=== PATIENT | female | born 1995 | race Caucasian/White ===

== ENCOUNTER 2018-04-26 12:14 | Emergency (ER) | payer MEDICAID, SELFPAY ==
[2018-04-26 12:15] VITALS: BP 119/76; PULSE 78; RESP 18; TEMP 36.1; O2SAT 99; BMI 25.6
--- NOTE | 2018-04-26 13:46 | EKG12_ITS ---
Test Reason : DIZZY Blood Pressure : / mmHG Vent. Rate : 077 BPM Atrial Rate : 077 BPM P-R Int : 132 ms QRS Dur : 086 ms QT Int : 398 ms P-R-T Axes : 072 078 050 degrees QTc Int : 450 ms Normal sinus rhythm with sinus arrhythmia Normal ECG Confirmed by MARITZA SHIPLEY, AURELIA ([id number]), online content editor GARRICK GARCIA ([id number]) on 04/30/2018 10:31:19 AM Referred By: POAL Confirmed By:AURELIA SALAS MD
[2018-04-26 14:23] LABS: Absolute Lymphocyte Count 1.38 X10^3/ul (0.83-4.51); Absolute Neutrophil Count 3.3 X10^3/uL (2.0-7.7); Basophil# 0.01 X10^3/uL; Basophil% 0.2 % (0-1); Eosinophil# 0.07 X10^3/uL; Eosinophils% 1.4 % (0-5); Hematocrit 42.4 % (37-47); Hemoglobin 13.7 g/dl (12.0-15.0); Lymphocyte # 1.38 X10^3/ul (4.0); Lymphocyte % 26.6 % (19-41); Mean Corp Hgb Conc 32.3 g/gl (32-36); Mean Corpuscular Hgb 28.8 pg (27.0-32.0); Mean Corpuscular Volume 89.3 fL (81-99); Mean Platelet Vol. 11.7 fl (6.2-12.0); Monocyte# 0.39 X10^3/uL; Monocyte% 7.5 % (0-10); Neutrophil # 3.32 X10^3/uL (2.7-7.7); Neutrophil % 64.1 % (47-70); Platelet Count 212 K/mm3 (150-450); RBC Distribution Width CV 12.3 % (11.6-14.6); RBC Distribution Width SD 39.5 fl (35.1-43.9); Red Blood Count 4.75 M/mm3 (4.2-5.4); White Blood Count 5.2 K/mm3 (4.4-11.0)
[2018-04-26 14:24] LABS: POSITIVE COUNT NO; POSITIVE DIFFERENTIAL NO; POSITIVE MORPHOLOGY NO
[2018-04-26 14:31] LABS: Anion Gap 8 (5-15); BUN 7 mg/dL (7-18); BUN/Creat Ratio 9.5 RATIO (10-20); Calcium,Total 8.9 mg/dL (8.5-10.1); Chloride 105 mmol/L (98-107); Creatinine, Serum 0.74 mg/dL (0.55-1.02); EST Glomerular Filtration Rate 102 mL/min (>60); Est Glom Filt Rate - Afr Amer 124 mL/min (>60); Estimated Creatinine Clearance 92.72 ml/min; Glucose 86 mg/dL (74-106); Potassium 3.6 mmol/L (3.5-5.1); Sodium Level 139 mmol/L (136-145)
[2018-04-26 14:53] LABS: D-Dimer Quantitative (DVT/PE) 0.27 FEU/ug/m (0.27-0.49)
--- NOTE | 2018-04-26 15:05 | RAD_ITS ---
STUDY: X-RAY CHEST REASON FOR EXAM: Female, 22 years old. Dyspnea. Atypical chest pain. TECHNIQUE: PA and lateral views of the chest. COMPARISON: Comparison is made with prior study dated July 05, 2013. FINDINGS: EKG electrodes are seen. Focal infiltrate is seen in the left lower lobe. There is no demonstrated pleural abnormality. Normal size heart. Normal mediastinum and isaac. Normal visualized pulmonary arteries. Normal visualized aortic arch and descending thoracic aorta. Normal visualized thoracic spine. Normal visualized ribs, clavicles, and shoulders. There is no demonstrated abnormality of the visualized soft tissue structures of the upper abdomen. RAD/Chest PA and Lateral IMPRESSION: Focal left lower lobe infiltrate. This is in the lateral segment. Electronically Signed: lAy Ramsay MD at 15:32 EST , Service support ,
--- NOTE | 2018-04-26 15:53 | ED.VISSUMM ---
- ER Visit Summary Date of Service: 04/26/18 Chief Complaint: Shortness of breath, dizziness, tingling in chest, paresthesia History of Present Illness: The patient is a 22 F who has no symptoms of menopause presents with a one-week history of trouble breathing, shortness of breath, dizziness, seeing a chest and tingling. She denies depression anxiety. She denies headache. She denies visual, ocular auditory symptoms or she denies trouble with speech or swallowing. She states that the chest discomfort is mid tingling. She denies history of PE or DVT. She has no risk factors. She denies leg pain or leg swelling. She denies nausea or vomiting. He denies urologic symptoms. She has not had a menstrual cycle in 6 years. She does have an IUD in place. There is no history of trauma. Please read written note. Physical Examination: Vital signs noted. Initial document was unremarkable. When I examined the patient she had a heart rate of 100. She was breathing much more rapidly than 18 times a minute. Head is atraumatic normocephalic. Pupils are equal round reactive. Extraocular muscles are intact. TMs are pearly white with landmarks noted. Nares patent with no drainage. Posterior pharynx without erythema or exudate. Uvula is midline. There is no dysphonia or dysphasia. Trachea is midline. There is no stridor with auscultation of the neck. Patient does have bilateral [place] signs noted. Heart is regular without murmur, gallop or rub. S1 and S2 are normal. Lungs are clear to auscultation with good movement of air bilaterally. Abdomen soft nontender. There is no asymmetry, swelling, discoloration, leg vein distention, palpable cords or tenderness along the distribution of the deep venous system. Neuro exam is nonfocal. Test Results: Workup was unremarkable. Chest x-ray was normal. D-dimer is normal. EKG revealed a sinus rhythm rate of 78 that is normal. Emergency Department Course and Treatment: Because patient remains a shortness of breath heart rate is greater than 90 will obtain a d-dimer to evaluate for PE. Chest x-ray to evaluate for infiltrate pneumothorax etc. EKG to look for ischemic changes or evidence of preexcitation syndrome. Treatment Plan: Follow-up with PCP and possible counseling. Disposition: Discharged home in stable condition Impression: 1. Dyspnea 2. Hyperventilation syndrome possible anxiety This note was generated with [employer] software. It may contain incorrect words, spelling, and punctuation that were not noted in review of the chart prior to signing ED Disposition - Plan for ED Patient: Disposition: Home or Assisted Living Instructions: ED Dyspnea Shortness of Breath, ED Hyperventilation Syndrome Referrals: [facility] Doctor,Out of [Primary Care Provider] - 3-5 Days
[2018-04-26 16:29] VITALS: BP 114/84; PULSE 77; RESP 15; RESP 18; O2SAT 99
== END 2018-04-26 16:31 | disposition home or self-care (01) ==
PROVIDERS: Emergency Provider Emergency Medicine
DX: R06.00 Dyspnea, unspecified (principal); F45.8 Other somatoform disorders
CPT/HCPCS: 71046; 80048; 85025; 85379; 93005; 99284; A4216

== ENCOUNTER 2018-08-06 08:24 | Inpatient (IN) | payer MEDICAID, SELFPAY ==
[2018-08-06] VITALS (7 sets, daily range): BP systolic 95–137; BP diastolic 42–85; PULSE 73–99; RESP 16–18; TEMP 36.2–36.8; O2SAT 96–100; BMI 25.9; BMI 26.0; BMI 25.3
--- NOTE | 2018-08-06 08:38 | CT_ITS ---
STUDY: CT BRAIN WITHOUT CONTRAST REASON FOR EXAM: Female, 22 years old. Bilateral leg weakness and numbness. RADIATION DOSAGE (If Supplied By Facility): CTDIvol = ( 44.99 ) mGy, DLP = ( 779.24 ) mGycm TECHNIQUE: Transaxial CT imaging of the brain was performed without administration of intravenous contrast material. Individualized dose optimization techniques were used for this CT. COMPARISON: No relevant priors. FINDINGS: Normal soft tissue structures. Normal calvarium. Normal size ventricles and extra-axial spaces for the patient's age. Normal white matter tracts of the cerebral hemispheres. Normal basal ganglia and thalami. Normal brainstem. Normal cerebellum. There is no intracranial hemorrhage. There are no findings of an acute ischemic infarction. Normal visualized paranasal sinuses. CT/Brain/Head without Contrast IMPRESSION: Normal unenhanced CT scan of the brain. Electronically Signed: Aly Ramsay, at 10:03 EDT , Service support ,
--- NOTE | 2018-08-06 08:47 | ED.VISSUMM ---
- ER Visit Summary Date of Service: 08/06/18 Chief Complaint: Paresthesias History of Present Illness: The patient is a 22 F reports a tingling sensation to her fingertips and distal to her knees bilaterally over the past 3 days. She has not had any motor weakness. She noted tingling sensation over her abdomen and back when she was taking her sweatshirt off this morning. She reports normal temperature sensation. She is not taking any medications or supplements. She said no recent diet changes. There is reportedly a family history of MS including in her father. Physical Examination: Vital signs unremarkable. Patient sitting upright in bed no acute distress. Heart is regular rate and rhythm. Lung sounds are clear. Abdomen is soft and nontender. Neuro exam reveals good strength throughout. She is strong distal pulses throughout. She reports decreased sensation to light touch over her abdomen, fingers, and the bilateral lower legs. No skin changes are noted to this area. Test Results: CBC and chemistry studies unremarkable. test negative. Noncontrast head CT is unremarkable. Emergency Department Course and Treatment: Test results were discussed with patient and father at bedside. I initially advised close follow-up with neurology as an outpatient. I spoke with Dr. Lamb to help arrange this. He wanted to come see the patient in the emergency room prior to discharge. Dr. Krista Garg ordered MRI of the brain and C-spine. MRI of the brain reveals multiple enhancing plaques in the bilateral cerebral hemispheres and left cerebellar hemisphere consistent with multiple sclerosis. MRI of the C-spine shows an MS plaque at C3-4 without active demyelination at this time. Test results were discussed with Dr. Lamb. He would like the patient admitted and started on Solu-Medrol 1 g daily. I will speak with the hospitalist. Treatment Plan: [] Disposition: Admit Impression: 1. Paresthesias 2. New diagnosis multiple sclerosis This note was generated with [employer] software. It may contain incorrect words, spelling, and punctuation that were not noted in review of the chart prior to signing ED Disposition - Plan for ED Patient: Disposition: Home or Assisted Living Instructions: ED Paraesthesias Referrals: Steve Vega MD [STAFF PHYSICIAN] - As soon as possible
[2018-08-06] MEDS: 0.9% Normal Saline 1,000 ML 150 ML IV ×2 (08:59→23:22)
[2018-08-06 09:08] LABS: Absolute Lymphocyte Count 1.01 X10^3/ul (0.83-4.51); Absolute Neutrophil Count 2.7 X10^3/uL (2.0-7.7); Basophil# 0.01 X10^3/uL; Basophil% 0.2 % (0-1); Eosinophil# 0.14 X10^3/uL; Eosinophils% 3.1 % (0-5); Hematocrit 42.1 % (37-47); Hemoglobin 13.9 g/dl (12.0-15.0); Lymphocyte # 1.01 X10^3/ul (4.0); Lymphocyte % 22.2 % (19-41); Mean Corpuscular Hgb 29.3 pg (27.0-32.0); Mean Corpuscular Volume 88.6 fL (81-99); Mean Platelet Vol. 11.8 fl (6.2-12.0); Monocyte# 0.65 X10^3/uL; Monocyte% 14.3 % (0-10); Neutrophil # 2.71 X10^3/uL (2.7-7.7); Neutrophil % 59.8 % (47-70); POSITIVE COUNT NO; POSITIVE DIFFERENTIAL NO; POSITIVE MORPHOLOGY NO; Platelet Count 199 K/mm3 (150-450); RBC Distribution Width CV 12.4 % (11.6-14.6); RBC Distribution Width SD 40.1 fl (35.1-43.9); Red Blood Count 4.75 M/mm3 (4.2-5.4); White Blood Count 4.5 K/mm3 (4.4-11.0)
[2018-08-06 09:32] LABS: Anion Gap 7 (5-15); BUN 6 mg/dL (7-18); BUN/Creat Ratio 7.9 RATIO (10-20); Calcium,Total 9.1 mg/dL (8.5-10.1); Chloride 108 mmol/L (98-107); Creatinine, Serum 0.76 mg/dL (0.55-1.02); EST Glomerular Filtration Rate 99 mL/min (>60); Est Glom Filt Rate - Afr Amer 119 mL/min (>60); Estimated Creatinine Clearance 90.28 ml/min; Glucose 89 mg/dL (74-106); Potassium 3.8 mmol/L (3.5-5.1); Sodium Level 142 mmol/L (136-145)
[2018-08-06 09:38] LABS: Internal QC Validated? YES +Cl - CLEAR BKGD; Pregnancy, Serum, hCG Quali. NEGATIVE Negative
--- NOTE | 2018-08-06 12:23 | CM.ED ---
SOCIAL WORK INFORMANT: DR. JOSEPH REASON FOR REFERRAL: INSURANCE QUESTIONS MET WITH PATIENT AND PATIENT'S FATHER IN ROOM. INTRODUCED ROLE AND REASON FOR REFERRAL. PATIENT REPORTS IS LOSING HER INSURANCE OF August. PATIENT STATES INSURANCE IS THROUGH [employer] AND THEY ARE ASSISTING WITH FINDING A TRANSITIONAL INSURANCE. PATIENT STATES TURNED IN ALL REQUIRED INFORMATION LAST WEEK. PATIENT AND FATHER UNSURE TO WHY PATIENT IS LOSING HER INSURANCE SHE IS LOW INCOME AND SHOULD CONTINUE TO QUALIFY FOR MEDICAID. PATIENT AND FATHER GIVEN THE CONTACT INFORMATION FOR THE MEDICAID SHARED SERVICE COORD[facility]ATION [facility]ENTER. PATIENT STATES WILL FOLLOW UP. NO OTHER NEEDS AT THIS TIME. 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
--- NOTE | 2018-08-06 12:29 | ED.RN ---
another page sent for neurologist.
--- NOTE | 2018-08-06 12:47 | NURSING ---
NEUROLOGY IN ROOM
--- NOTE | 2018-08-06 13:31 | MRI_ITS ---
STUDY: MRI BRAIN WITH AND WITHOUT CONTRAST REASON FOR EXAM: Female, 22 years old. Paresthesias possible multiple sclerosis TECHNIQUE: Standardized multiplanar fat and water weighted pulse sequences were obtained. 13 IV Dotarem was administered for the contrast portion of the examination. COMPARISON: CT of the brain on August 06, 2018 FINDINGS: Normal size of the ventricles and extra-axial spaces for the patient's age. There are multiple periventricular white matter lesions in the cerebral hemispheres bilaterally of varying sizes several of which involve the callosal septal interface which may be consistent with multiple sclerosis.. There are also focal lesions within the cerebellar hemispheres and left middle cerebral peduncle Normal bilateral basal ganglia. Normal thalami. There is no extra-axial fluid accumulation. Normal flow voids within the major intracranial circulation suggesting patency by spin echo criteria. Normal venous enhancement. Following contrast administration, there is a small rim-enhancing plaque in the right frontal lobe, small homogeneously enhancing plaque in the left frontal parietal region, small focal enhancing plaques within the bilateral parietal and left frontal lobes, bilateral temporal lobes and left cerebellar hemisphere consistent with active demyelination. There is also focal enhancement of the genu of the corpus callosum on the left Normal sella turcica, pituitary gland, infundibular stalk, optic chiasm and hypothalamus. Normal tectal plate and pineal gland. Normal midbrain, gopi and medulla. Normal basal cisterns. Normal bilateral temporal bones. Normal bilateral internal auditory canals. No demonstrated orbital abnormality, within the constraints of a routine brain study. There is diffuse mucosal thickening within the paranasal sinuses bilaterally with relative sparing of the right frontal sinus Normal calvarium and skull base. Normal visualized soft tissue structures. Normal visualized upper cervical spine. MRI/Brain W/WO Contrast IMPRESSION: Findings consistent with clinical diagnosis of multiple sclerosis with multiple enhancing plaques within the cerebral hemispheres bilaterally and left cerebellar hemisphere consistent with active demyelination. Electronically Signed: Marvin Ortega MD at 16:16 EDT , Service support ,
--- NOTE | 2018-08-06 13:32 | MRI_ITS ---
STUDY: MRI CERVICAL SPINE WITH AND WITHOUT CONTRAST REASON FOR EXAM: Female, 22 years old. Paresthesias TECHNIQUE: Standardized fat and water weighted pulse sequences were obtained in the sagittal and axial following administration of 13 IV Dotarem. COMPARISON: None FINDINGS: Normal foramen magnum and brainstem-cervical cord junction. Normal craniovertebral junction. Normal anterior atlantoaxial articulation. Normal odontoid process. Normal cervical lordosis. Normal vertebral bodies and posterior osseous elements. C2-3: Normal endplates. Normal disc height, signal and morphology. Normal central canal and intervertebral neural foramina. C3-4: Normal endplates. Normal disc height, signal and morphology. Normal central canal and intervertebral neural foramina. C4-5: Normal endplates. Normal disc height, signal and morphology. Normal central canal and intervertebral neural foramina. C5-6: Normal endplates. Normal disc height, signal and minimal bulging of the disc.. Normal central canal and intervertebral neural foramina. C6-7: Normal endplates. Normal disc height, signal and minimal bulging of the disc. Normal central canal and intervertebral neural foramina. C7-T1: Normal endplates. Normal disc height, signal and morphology. Normal central canal and intervertebral neural foramina. There is a prominent focal intramedullary lesion noted within the cord in the midline at C3-4 consistent with demyelinating plaque of multiple sclerosis however there is no enhancement suggesting active demyelination at this time Normal visualized soft tissue structures. MRI/Spine Cervical W/WO Contrast IMPRESSION: Findings consistent with multiple sclerosis plaque at C3-4 without active demyelination at this time Minimal bulging of the discs at C5-6 and C6-7 without spinal stenosis Electronically Signed: Marvin Ortega MD at 16:20 EDT , Service support ,
--- NOTE | 2018-08-06 13:33 | PCM.CONS.GEN ---
Problem List (1) Numbness Status: Acute Reason for Consult Date of Consultation: 08/06/18 Reason for Consultation: Numbness History of Present Illness: The patient is a 22 year old F with no significant PMH admitted with numbness and paresthesias. Per patient she started having left foot numbness and paresthesias on Monday about 2 days ago 08/03/2018, later patient also had a headache on Monday for which she took Motrin, per patient her paresthesias worsened and the numbness extended to the arm on the left side and the right foot and since this morning 08/06/2018 patient feels that her abdomen is also numb. She denies any neck pain, radicular symptoms, urinary incontinence, burning pain in the feet. She complains of chronic low back pain. Per patient she does get headaches about 2-3 times a week, has occasional photophobia/phonophobia, occasional visual blurring, denies nausea. Per patient she just takes [id number] medication for her headaches. At present she denies any headache, dizziness, visual disturbances, speech disturbances, focal motor weakness. Per patient she has a strong family history of multiple sclerosis and her father and aunt. [] Past Medical History Medical History: Medical History (Last Updated 03/08/17 @ 13:21 by Lesvia Silva) c section Allergies codeine Allergy (Verified 08/06/18 08:26) Rash/vomiting Home Medications: Ambulatory Orders Medication Instructions Recorded NK 04/26/18 Surgical History: Surgical History (Last Updated 03/08/17 @ 13:21 by Lesvia Silva) S/P removal of left ovary Z90.721 Lives: - - With parents, has a 4-year-old child. Smoking Status: Never smoker Alcohol: None Drugs: None Review of Systems Constitutional: Reports: - - Complete ROS negative except as documented in HPI Patient Problems: Active and Suspected Problems (Last Updated 03/08/17 @ 13:21 by Lesvia Silva) Numbness (Acute) - Physical Exam General: Alert HEENT: Normocephalic Neck: Supple Lungs: Normal air movement Cardiovascular: Normal S1, Normal S2 Abdomen: Bowel Sounds Present Extremities: No cyanosis Neurological: - - Conscious, alert, CN?2-12 grossly intact, power 5/5 all 4 extremities, subjective sensory loss to light touch temperature left feet/left leg and thighs and left lower abdomen, no cerebellar signs, reflexes +2 B/L B/S/T/K/A, plantars?B/L flexor, gait deferred, no NR, fundus not visualized. Psych/Mental Status: Normal Affect Vital Signs Temp Pulse Resp BP Pulse Ox 97.2 F L 80 16 126/85 H 100 08/06/18 08:25 08/06/18 11:36 08/06/18 11:36 08/06/18 11:36 08/06/18 11:36 Oxygen Delivery Method Room Air Weight: 64.4 kg Body Mass Index (BMI) 25.9 Laboratory Tests Past 24 Hrs 08/06/18 08/06/18 08/06/18 08:56 08:56 08:56 WBC 4.5 RBC 4.75 Hgb 13.9 Hct 42.1 MCV 88.6 MCH 29.3 MCHC 33.0 RDW 12.4 RDW Differential 40.1 Plt Count 199 MPV 11.8 Immature Gran % (Auto) 0.400 Neut % (Auto) 59.8 Lymph % (Auto) 22.2 [place] % (Auto) 14.3 H Eos % (Auto) 3.1 Baso % (Auto) 0.2 Absolute Neuts (auto) 2.7 Absolute Lymphs (auto) 1.01 Total Counted Not Reportable Sodium 142 Potassium 3.8 Chloride 108 H Carbon Dioxide 27.0 Anion Gap 7 BUN 6 L Creatinine 0.76 Estim Creat Clear Calc 90.28 Est GFR (MDRD) Af Amer 119 Est GFR (MDRD) Non-Af 99 BUN/Creatinine Ratio 7.9 L Glucose 89 Calcium 9.1 Serum , Qual NEGATIVE Assessment/Plan All Active Problems (Last Updated 03/08/17 @ 13:21 by Lesvia Silva) Numbness (Acute) The patient is a 22 year old F with no significant PMH admitted with numbness and paresthesias. Per patient she started having left foot numbness and paresthesias on Monday about 2 days ago 08/03/2018, later patient also had a headache on Monday for which she took Motrin, per patient her paresthesias worsened and the numbness extended to the arm on the left side and the right foot and since this morning 08/06/2018 patient feels that her abdomen is also numb. She denies any neck pain, radicular symptoms, urinary incontinence, burning pain in the feet. She complains of chronic low back pain. Per patient she does get headaches about 2-3 times a week, has occasional photophobia/phonophobia, occasional visual blurring, denies nausea. Per patient she just takes [id number] medication for her headaches. At present she denies any headache, dizziness, visual disturbances, speech disturbances, focal motor weakness. Per patient she has a strong family history of multiple sclerosis and her father and aunt. Impression New onset numbness/paresthesias in the feet, left arm Family history of MS per patient R/O MS versus atypical migraine headaches Plan ?MRI brain with and without contrast ?MRI C-spine without contrast ?At present patient denies any headache ?Labs reviewed ?If numbness/paresthesias persists for few weeks then may need EMG/NCS as outpatient in 3 to 4 weeks ?Fall precautions ?GI/DVT prophylaxis ?Further medical management per hospitalist recommendation ?Follow-up with neurology as outpatient in 4 to 6 weeks ?Please call with questions if any ?Thank you for allowing us to participate in patient's current management Code Visit Inpatient E&M: [id number] Init Hosp L3
--- NOTE | 2018-08-06 16:55 | HP.PCM_ITS ---
History of Present Illness Date of Admission: 08/06/18 Chief Complaint: tingling in extremities The patient is a 22 year old F admitted through the ED on 08/06/2018 with a complaint of tingling in her upper and lower extremities. Symptoms started 2 days before admission and persisted and so she decided to come into the ED. She did not have any weakness in any extremity, any blurred vision, any drooping of her mouth, any headache or any difficulty swallowing. She did have any extreme lethargy either. Her father has a history of multiple sclerosis and was diagnosed in his early 20s after symptoms started with tingling. Review of systems otherwise negative. In the ED, CBC and CMP were unremarkable and CT of the head was also unremarkable. Case was discussed by the ED doctor with neurology who recommended an MRI of the brain and C-spine. MRI of the brain revealed multiple enhancing plaques in the bilateral cerebral hemispheres and left cerebellar hemisphere consistent with multiple sclerosis and MRI of the cervical spine also showed an MS plaque at C3-4 without active demyelination. She has been admitted to be managed for newly diagnosed multiple sclerosis. 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 Smoking Status: Never smoker Alcohol: None Drugs: None - *Family History Paternal History Items: - - father has Multiple Sclerosis Maternal History Items: No pertinent history Review of Systems Constitutional: Denies: Chills, Fever, Malaise, Weakness, Weight Change Eyes: Denies: Blurred vision, Double vision, Vision Change HEENT: Denies: Head Aches, Sinus Congestion, Sinus Drainage Cardiovascular: Denies: Chest Pain, Palpitations Respiratory: Denies: Cough, Shortness of breath at rest, Sputum production Gastrointestinal: Denies: Abdominal Pain, Nausea, Vomiting Genitourinary: Denies: Dysuria Musculoskeletal: Denies: Joint Pain, Joint Tenderness Skin: Reports: Skin Changes. Denies: Rash, Wounds Neurological: Reports: Tingling. Denies: Balance problems, Blurred vision, Double vision, Change in Speech, Slurred speech, Difficulty swallowing, Focal weakness, Headaches, Incoordination, Numbness, Tremor, Seizures Psychiatric: Reports: Anxiety Hematologic/ Lymphatic: Denies: Easy Bruising, Easy Bleeding VTE Information - Inpt Only VTE Present on Admission: No VTE Pharm Prophylaxis ordered?: Yes Patient Problems: Active and Suspected Problems (Last Updated 03/08/17 @ 13:21 by Lesvia Silva) Numbness (Acute) - Physical Exam General: Alert, Oriented x3, Cooperative, No apparent distress HEENT: Atraumatic, PERRLA, EOMI, Normocephalic Oral: Moist Mucosa Neck: Supple, No JVD, Negative Carotid Bruits Lungs: Clear to auscultation, Normal air movement, No rhonchi, No wheeze, No rales Cardiovascular: Regular rate, Regular Rhythm, Normal S1, Normal S2, No murmurs Abdomen: Bowel Sounds Present, Soft, Non Tender, Non-Distended, No Hepato- splenomegaly Extremities: No clubbing, No cyanosis, No edema, Capillary Refill Less than 3 Seconds Skin: No rashes, No breakdown Musculoskeletal: No Tenderness to Palpation of Joints or Extremities Lymphatic: No Cervical, Supraclavicular, or Inguinal Adenopathy Neurological: Cranial nerves II-XII grossly intact, Deep Tendon Reflexes 2+/4 and Symmetrical, Muscle tone normal, - - mild numbness in LLE Psych/Mental Status: Normal Affect, Appropriate, Alert and oriented to time, place, person, mood and affect Vital Signs Temp Pulse Resp BP Pulse Ox 97.2 F L 84 16 113/67 99 08/06/18 08:25 08/06/18 16:34 08/06/18 16:34 08/06/18 16:34 08/06/18 16:34 Oxygen Delivery Method Room Air Weight: 141 lb 15.643 oz Body Mass Index (BMI) 25.9 Laboratory Tests Past 24 Hrs 08/06/18 08/06/18 08/06/18 08:56 08:56 08:56 WBC 4.5 RBC 4.75 Hgb 13.9 Hct 42.1 MCV 88.6 MCH 29.3 MCHC 33.0 RDW 12.4 RDW Differential 40.1 Plt Count 199 MPV 11.8 Immature Gran % (Auto) 0.400 Neut % (Auto) 59.8 Lymph % (Auto) 22.2 [place] % (Auto) 14.3 H Eos % (Auto) 3.1 Baso % (Auto) 0.2 Absolute Neuts (auto) 2.7 Absolute Lymphs (auto) 1.01 Total Counted Not Reportable Sodium 142 Potassium 3.8 Chloride 108 H Carbon Dioxide 27.0 Anion Gap 7 BUN 6 L Creatinine 0.76 Estim Creat Clear Calc 90.28 Est GFR (MDRD) Af Amer 119 Est GFR (MDRD) Non-Af 99 BUN/Creatinine Ratio 7.9 L Glucose 89 Calcium 9.1 Serum , Qual NEGATIVE Diagnostic Data Brain CT 08/06/18 08:38 IMPRESSION: Normal unenhanced CT scan of the brain. Electronically Signed: Aly Ramsay, at 10:03 EDT , Service support , Brain MRI 08/06/18 13:31 IMPRESSION: Findings consistent with clinical diagnosis of multiple sclerosis with multiple enhancing plaques within the cerebral hemispheres bilaterally and left cerebellar hemisphere consistent with active demyelination. Electronically Signed: Marvin Ortega MD at 16:16 EDT , Service support , Cervical Spine MRI 08/06/18 13:32 IMPRESSION: Findings consistent with multiple sclerosis plaque at C3-4 without active demyelination at this time Minimal bulging of the discs at C5-6 and C6-7 without spinal stenosis Electronically Signed: Marvin Ortega MD at 16:20 EDT , Service support , Assessment/Plan All Active Problems (Last Updated 03/08/17 @ 13:21 by Lesvia Silva) Numbness (Acute) 22-year-old female admitted with 2-day history of tingling in all extremities. 1. Acute MS flare up in a newly diagnosed MS patient * admit to PCU with telemetry * neurochecks q4 hourly * brain MRI: Multiple enhancing plaques in the cerebral hemispheres bilaterally in the left cerebellar hemisphere consistent with active demyelination. Findings consistent with clinical diagnosis of multiple sclerosis. * Cervical spine MRI showed plaque at C3-4 without active demyelination at this time. * IV solumedrol 1000mg daily * neurology consult * PT/OT consult DVT prophylaxis; SCDs Code Visit OBSV E&M: 94538 Initial observation care L3
--- NOTE | 2018-08-06 17:04 | NURSING ---
107 KORAM ACUTE FLAREUP OF MS
[2018-08-07] VITALS (11 sets, daily range): BP systolic 101–117; BP diastolic 54–69; PULSE 50–83; RESP 16; TEMP 36.6–36.9; O2SAT 96–99
[2018-08-07] MEDS: 0.9% Normal Saline 1,000 ML 150 ML IV ×3 (04:48→20:01)
[2018-08-07 06:40] LABS: Absolute Neutrophil Count 4.6 X10^3/uL (2.0-7.7); Differential Indicated SCAN CRITERIA MET; Hematocrit 39.9 % (37-47); Hemoglobin 13.2 g/dl (12.0-15.0); Lymphocyte % 9.7 % (19-41); Mean Corp Hgb Conc 33.1 g/gl (32-36); Mean Corpuscular Hgb 29.1 pg (27.0-32.0); Mean Corpuscular Volume 87.9 fL (81-99); Mean Platelet Vol. 12.5 fl (6.2-12.0); Monocyte# 0.06 X10^3/uL; Monocyte% 1.2 % (0-10); Neutrophil # 4.58 X10^3/uL (2.7-7.7); Neutrophil % 89.1 % (47-70); POSITIVE COUNT NO; POSITIVE DIFFERENTIAL YES; POSITIVE MORPHOLOGY NO; Platelet Count 190 K/mm3 (150-450); RBC Distribution Width CV 12.2 % (11.6-14.6); RBC Distribution Width SD 38.6 fl (35.1-43.9); Red Blood Count 4.54 M/mm3 (4.2-5.4); White Blood Count 5.1 K/mm3 (4.4-11.0)
[2018-08-07 06:45] LABS: Anion Gap 7 (5-15); BUN 10 mg/dL (7-18); BUN/Creat Ratio 15.7 RATIO (10-20); Calcium,Total 8.2 mg/dL (8.5-10.1); Chloride 113 mmol/L (98-107); Creatinine, Serum 0.64 mg/dL (0.55-1.02); EST Glomerular Filtration Rate 121 mL/min (>60); Est Glom Filt Rate - Afr Amer 147 mL/min (>60); Glucose 168 mg/dL (74-106); Potassium 4.1 mmol/L (3.5-5.1); Sodium Level 142 mmol/L (136-145)
--- NOTE | 2018-08-07 09:37 | PCM.PN.HOSP ---
Patient Problems: Active and Suspected Problems (Last Updated 03/08/17 @ 13:21 by Lesvia Silva) Numbness (Acute) Subjective: Patient seen and examined. She still complains of tingling in her UEs and says it is still the same as yesterday. Review of systems otherwise negative. Vitals/I&O's: Vital Signs Temp Pulse Resp BP Pulse Ox 98.2 F 74 16 117/69 98 08/07/18 08:18 08/07/18 08:18 08/07/18 08:18 08/07/18 08:18 08/07/18 08:18 Oxygen Delivery Method Room Air Weight: 138 lb 7.205 oz Body Mass Index (BMI) 25.3 Intake and Output for Last 24 Hours 08/05/18 08/06/18 08/07/18 23:59 23:59 23:59 Intake Total 1268 / 1268 907 / 907 Balance 1268 / 1268 907 / 907 General: Alert, Oriented x3, Cooperative, No apparent distress HEENT: Atraumatic, PERRLA, EOMI, Normocephalic Oral: Moist Mucosa Neck: Supple, No JVD, Negative Carotid Bruits Lungs: Clear to auscultation, Normal air movement, No rhonchi, No wheeze, No rales Cardiovascular: Regular rate, Regular Rhythm, Normal S1, Normal S2, No murmurs Abdomen: Bowel Sounds Present, Soft, Non Tender, Non-Distended, No Hepato-splenomegaly Extremities: No clubbing, No cyanosis, No edema, Capillary Refill Less than 3 Seconds Skin: No rashes, No breakdown Musculoskeletal: No Tenderness to Palpation of Joints or Extremities Lymphatic: No Cervical, Supraclavicular, or Inguinal Adenopathy Neurological: Cranial nerves II-XII grossly intact, Deep Tendon Reflexes 2+/4 and Symmetrical, Muscle tone normal, - - mild numbness in LLE Psych/Mental Status: Normal Affect, Appropriate, Alert and oriented to time, place, person, mood and affect Laboratory Results 08/06/18 08:56: Serum , Qual NEGATIVE 08/07/18 05:45: Sodium 142, Potassium 4.1, Chloride 113 H, Carbon Dioxide 22.0, Anion Gap 7, BUN 10, Creatinine 0.64, Estim Creat Clear Calc 107.20, Est GFR (MDRD) Af Amer 147, Est GFR (MDRD) Non-Af 121, BUN/Creatinine Ratio 15.7, Glucose 168 H, Calcium 8.2 L 08/07/18 05:45: WBC 5.1, RBC 4.54, Hgb 13.2, Hct 39.9, MCV 87.9, MCH 29.1, MCHC 33.1, RDW 12.2, RDW Differential 38.6, Plt Count 190, MPV 12.5 H, Immature Gran % (Auto) 0.000, Neut % (Auto) 89.1 H, Lymph % (Auto) 9.7 L, [place] % (Auto) 1.2, Eos % (Auto) 0.0, Baso % (Auto) 0.0, Absolute Neuts (auto) 4.6, Absolute Lymphs (auto) 0.50 L, Total Counted Not Reportable Diagnostic Data Brain CT 08/06/18 08:38 IMPRESSION: Normal unenhanced CT scan of the brain. Electronically Signed: Aly Ramsay at 10:03 EDT , Service support , Brain MRI 08/06/18 13:31 IMPRESSION: Findings consistent with clinical diagnosis of multiple sclerosis with multiple enhancing plaques within the cerebral hemispheres bilaterally and left cerebellar hemisphere consistent with active demyelination. Electronically Signed: Marvin Ortega MD at 16:16 EDT , Service support , Cervical Spine MRI 08/06/18 13:32 IMPRESSION: Findings consistent with multiple sclerosis plaque at C3-4 without active demyelination at this time Minimal bulging of the discs at C5-6 and C6-7 without spinal stenosis Electronically Signed: Marvin Ortega MD at 16:20 EDT , Service support , Current Medications Dextrose (D50w Syringe) 0 gm IV X1 PRN; Protocol PRN Reason: Hypoglycemia Glucagon () 1 mg IM .X1 PRN PRN Reason: Hypoglycemia Sodium Chloride () 1,000 mls @ 150 mls/hr IV .Q6H40M LEENA Last Admin: 08/07/18 04:48 Dose: 150 mls/hr Methylprednisolone 1,000 mg/ (Sodium Chloride) 116 mls @ 100 mls/hr IV DAILY LEENA Sodium Chloride () 5 - 15 ml IV UD PRN PRN Reason: SALINE FLUSH Medical Necessity - Tobacco Use Smoking Status: Never smoker Assessment/Plan All Active Problems (Last Updated 03/08/17 @ 13:21 by Lesvia Silva) Numbness (Acute) 1. Acute MS flare up in a newly diagnosed MS patient brain MRI: Multiple enhancing plaques in the cerebral hemispheres bilaterally in the left cerebellar hemisphere consistent with active demyelination. Findings consistent with clinical diagnosis of multiple sclerosis. Cervical spine MRI showed plaque at C3-4 without active demyelination at this time. IV solumedrol 1000mg daily today is day 2 neurology on board- per discussion with neurology, will need lumbar puncture and thoracic MRI PT/OT on board DVT prophylaxis: SCDs Code Visit OBSV E&M: [id number] Subsequent observation care L3
--- NOTE | 2018-08-07 09:41 | PN_ITS ---
Patient Problems: Active and Suspected Problems (Last Updated 03/08/17 @ 13:21 by Lesvia Silva) Numbness (Acute) Subjective: Patient seen and examined. She still complains of tingling in her UEs and says it is still the same as yesterday. Review of systems otherwise negative. Vitals/I&O's: Vital Signs Temp Pulse Resp BP Pulse Ox 98.2 F 74 16 117/69 98 08/07/18 08:18 08/07/18 08:18 08/07/18 08:18 08/07/18 08:18 08/07/18 08:18 Oxygen Delivery Method Room Air Weight: 138 lb 7.205 oz Body Mass Index (BMI) 25.3 Intake and Output for Last 24 Hours 08/05/18 08/06/18 08/07/18 23:59 23:59 23:59 Intake Total 1268 / 1268 907 / 907 Balance 1268 / 1268 907 / 907 General: Alert, Oriented x3, Cooperative, No apparent distress HEENT: Atraumatic, PERRLA, EOMI, Normocephalic Oral: Moist Mucosa Neck: Supple, No JVD, Negative Carotid Bruits Lungs: Clear to auscultation, Normal air movement, No rhonchi, No wheeze, No rales Cardiovascular: Regular rate, Regular Rhythm, Normal S1, Normal S2, No murmurs Abdomen: Bowel Sounds Present, Soft, Non Tender, Non-Distended, No Hepato- splenomegaly Extremities: No clubbing, No cyanosis, No edema, Capillary Refill Less than 3 Seconds Skin: No rashes, No breakdown Musculoskeletal: No Tenderness to Palpation of Joints or Extremities Lymphatic: No Cervical, Supraclavicular, or Inguinal Adenopathy Neurological: Cranial nerves II-XII grossly intact, Deep Tendon Reflexes 2+/4 and Symmetrical, Muscle tone normal, - - mild numbness in LLE Psych/Mental Status: Normal Affect, Appropriate, Alert and oriented to time, place, person, mood and affect Laboratory Results 08/06/18 08:56: Serum , Qual NEGATIVE 08/07/18 05:45: Sodium 142, Potassium 4.1, Chloride 113 H, Carbon Dioxide 22.0, Anion Gap 7, BUN 10, Creatinine 0.64, Estim Creat Clear Calc 107.20, Est GFR (MDRD) Af Amer 147, Est GFR (MDRD) Non-Af 121, BUN/Creatinine Ratio 15.7, Glucose 168 H, Calcium 8.2 L 08/07/18 05:45: WBC 5.1, RBC 4.54, Hgb 13.2, Hct 39.9, MCV 87.9, MCH 29.1, MCHC 33.1, RDW 12.2, RDW Differential 38.6, Plt Count 190, MPV 12.5 H, Immature Gran % (Auto) 0.000, Neut % (Auto) 89.1 H, Lymph % (Auto) 9.7 L, [place] % (Auto) 1.2, Eos % (Auto) 0.0, Baso % (Auto) 0.0, Absolute Neuts (auto) 4.6, Absolute Lymphs (auto) 0.50 L, Total Counted Not Reportable Diagnostic Data Brain CT 08/06/18 08:38 IMPRESSION: Normal unenhanced CT scan of the brain. Electronically Signed: Aly Ramsay at 10:03 EDT , Service support , Brain MRI 08/06/18 13:31 IMPRESSION: Findings consistent with clinical diagnosis of multiple sclerosis with multiple enhancing plaques within the cerebral hemispheres bilaterally and left cerebellar hemisphere consistent with active demyelination. Electronically Signed: Marvin Ortega MD at 16:16 EDT , Service support , Cervical Spine MRI 08/06/18 13:32 IMPRESSION: Findings consistent with multiple sclerosis plaque at C3-4 without active demyelination at this time Minimal bulging of the discs at C5-6 and C6-7 without spinal stenosis Electronically Signed: Marvin Ortega MD at 16:20 EDT , Service support , Current Medications Dextrose (D50w Syringe) 0 gm IV X1 PRN; Protocol PRN Reason: Hypoglycemia Glucagon () 1 mg IM .X1 PRN PRN Reason: Hypoglycemia Sodium Chloride () 1,000 mls @ 150 mls/hr IV .Q6H40M LEENA Last Admin: 08/07/18 04:48 Dose: 150 mls/hr Methylprednisolone 1,000 mg/ (Sodium Chloride) 116 mls @ 100 mls/hr IV DAILY LEENA Sodium Chloride () 5 - 15 ml IV UD PRN PRN Reason: SALINE FLUSH Medical Necessity - Tobacco Use Smoking Status: Never smoker Assessment/Plan All Active Problems (Last Updated 03/08/17 @ 13:21 by Lesvia Silva) Numbness (Acute) 1. Acute MS flare up in a newly diagnosed MS patient * brain MRI: Multiple enhancing plaques in the cerebral hemispheres bilaterally in the left cerebellar hemisphere consistent with active demyelination. Findings consistent with clinical diagnosis of multiple sclerosis. * Cervical spine MRI showed plaque at C3-4 without active demyelination at this time. * IV solumedrol 1000mg daily today is day 2 * neurology on board- per discussion with neurology, will need lumbar puncture and thoracic MRI * PT/OT on board DVT prophylaxis: SCDs Code Visit OBSV E&M: [id number] Subsequent observation care L3
[2018-08-07] MEDS: Famotidine 20 MG Tablet PO (10:17)
[2018-08-07] MEDS: Acetaminophen 325 MG Tablet 650 MG PO ×2 (12:28→20:01)
--- NOTE | 2018-08-07 13:54 | PCM.PN.NEU ---
Patient Problems: Active and Suspected Problems (Last Updated 03/08/17 @ 13:21 by Lesvia Silva) Numbness (Acute) Subjective: No issues overnight. Continues to have paresthesias in the extremities. MRI brain results discussed with the patient. - Physical Exam General: Alert HEENT: Normocephalic Neck: Supple Lungs: Normal air movement Cardiovascular: Normal S1, Normal S2 Abdomen: Bowel Sounds Present Extremities: No cyanosis Neurological: - - Conscious, alert, CN?2-12 grossly intact, power 5/5 all 4 extremities, subjective sensory loss to light touch temperature left feet/left leg and thighs and left lower abdomen, no cerebellar signs, reflexes +2 B/L B/S/T/K/A, plantars?B/L flexor, gait deferred, no NR, fundus not visualized. Psych/Mental Status: Normal Affect Vital Signs Temp Pulse Resp BP Pulse Ox 98.2 F 76 16 117/69 98 08/07/18 08:18 08/07/18 10:57 08/07/18 08:18 08/07/18 08:18 08/07/18 08:18 Oxygen Delivery Method Room Air Weight: 62.8 kg Body Mass Index (BMI) 25.3 Intake and Output for Last 24 Hours 08/05/18 08/06/18 08/07/18 23:59 23:59 23:59 Intake Total 1268 / 1268 1736 / 1736 Balance 1268 / 1268 1736 / 1736 Laboratory Tests Past 24 Hrs 08/07/18 08/07/18 05:45 05:45 WBC 5.1 RBC 4.54 Hgb 13.2 Hct 39.9 MCV 87.9 MCH 29.1 MCHC 33.1 RDW 12.2 RDW Differential 38.6 Plt Count 190 MPV 12.5 H Immature Gran % (Auto) 0.000 Neut % (Auto) 89.1 H Lymph % (Auto) 9.7 L [place] % (Auto) 1.2 Eos % (Auto) 0.0 Baso % (Auto) 0.0 Absolute Neuts (auto) 4.6 Absolute Lymphs (auto) 0.50 L Total Counted Not Reportable Sodium 142 Potassium 4.1 Chloride 113 H Carbon Dioxide 22.0 Anion Gap 7 BUN 10 Creatinine 0.64 Estim Creat Clear Calc 107.20 Est GFR (MDRD) Af Amer 147 Est GFR (MDRD) Non-Af 121 BUN/Creatinine Ratio 15.7 Glucose 168 H Calcium 8.2 L Medical Necessity - Tobacco Use Smoking Status: Never smoker Assessment/Plan All Active Problems (Last Updated 03/08/17 @ 13:21 by Lesvia Silva) Numbness (Acute) The patient is a 22 year old F with no significant PMH admitted with numbness and paresthesias. Per patient she started having left foot numbness and paresthesias on Monday about 2 days ago 08/03/2018, later patient also had a headache on Monday for which she took Motrin, per patient her paresthesias worsened and the numbness extended to the arm on the left side and the right foot and since 08/06/2018 patient feels that her abdomen is also numb. She denies any neck pain, radicular symptoms, urinary incontinence, burning pain in the feet. She complains of chronic low back pain. Per patient she does get headaches about 2-3 times a week, has occasional photophobia/phonophobia, occasional visual blurring, denies nausea. Per patient she just takes [id number] medication for her headaches. At present she denies any headache, dizziness, visual disturbances, speech disturbances, focal motor weakness. Per patient she has a strong family history of multiple sclerosis and her father and aunt. MRI brain reported to show multiple enhancing plaques within the cerebral hemispheres bilaterally and cerebellum consistent with active demyelination and MRI C-spine reported to show plaque at C3-C4 without active demyelination. Minimal disc bulging at C5-C6 and C6-C7 without any spinal stenosis Impression New onset demyelinating disease-likely MS Plan ?Solu-Medrol 1 g IV once daily for 5 days. ?MRI thoracic spine with and without contrast. ?LP?check for cell count, protein, glucose, oligoclonal bands, IgG index, myelin basic protein, BRIANA level. ?Check ADRIÁN/ANCA/SSA/SSB antibody/RF, vitamin D levels, vitamin B12, TSH, serum BRIANA level and Lyme's antibody testing, NMO ab and MOG antibody, HBsAg, Hepatitis C, immunoglobulins level, SPEP and UPEP with GABE. ?Labs reviewed ?Fall precautions ?GI/DVT prophylaxis ?Further medical management per hospitalist recommendation ?Follow-up with neurology as outpatient in 4 to 6 weeks ?Please call with questions if any ?Thank you for allowing us to participate in patient's current management
--- NOTE | 2018-08-07 14:18 | MRI_ITS ---
HISTORY: new dx of ms EXAMINATION: MR Spine Thoracic WO/W Contrast TECHNIQUE: Multiplanar and multisequence MR images of the thoracic spine. IV Contrast dosage and agent: 12 cc Dotarem administered intravenously. COMPARISON: None FINDINGS: VERTEBRAE: No fracture. Normal vertebral bodies and posterior elements. VERTEBRAL ALIGNMENT: Normal. There is preservation of the normal thoracic kyphosis. No scoliosis. DISCS: Normal disc height and morphology. Normal spinal canal and neuroforamina. CORD: Normal signal and morphology. Normal conus medularis. No abnormal enhancement. SOFT TISSUES: Unremarkable. MRI/Spine Thoracic W/WO Contrast IMPRESSION: Normal MRI of the thoracic spine with and without gadolinium. No evidence of previous or current demyelination in the thoracic spinal cord. at 0043 Reported and signed by: Kristian Olmos MD Electronically Signed: Kristian Olmos, at 0:42 EDT Tel , Service support ,
[2018-08-07 16:51] LABS: Rheumatoid Factor < 10.0 IU/mL (<15); Thyroid Stim Hormone (TSH) 0.15 uIU/mL (0.358-3.74)
[2018-08-07 16:52] LABS: Vitamin B12 398 pg/mL (211-911); Vitamin D,25 Hydroxy 22.7 ng/mL (29.95-100.01)
[2018-08-07] MEDS: Ondansetron 4 MG/2 ML Vial IV (17:35)
[2018-08-08] VITALS (9 sets, daily range): BP systolic 104–125; BP diastolic 59–78; PULSE 41–73; RESP 12–16; TEMP 36.7–37; O2SAT 95–99
--- NOTE | 2018-08-08 | CYSPIN_PTH ---
PATIENT: JIMMY SANDERS LOC: PCU U#:[id number] AGE/SX: 22/F ROOM: [facility] RE08/07/[address]: Dr. Francesca Robles MD : 1995 BED: 1 DIS: 08/11/2018 SPEC #: [id number] RECD: 08/08/18 12:18 STATUS: JOHN REQ #: [id number] ARUN: 08/08/18 00:[address]: Francesca Robles DEPT: CYTOLOGY RECD BY: Heath Abebe ENTERED: 08/08/18 12:18 SP TYPE: CYSPIN FL OTHR DR: Dr. Kelsie Lamb MD No Primary Care Phys Tissues: Cerebrospinal Fluid Procedures: Pap Stain (control) Special Stain Group II Cytospin Fluid HEADER OPERATION: Lumbar puncture PRE-OP DIAGNOSIS: Left-sided numbness TISSUE SUBMITTED: Cerebrospinal fluid for cytology DIAGNOSIS CYTOLOGY Cerebrospinal fluid for cytology (cytospins): Negative for malignant cells. AM:josiane 08/09/18 CYTOLOGY STUDY Slides are reviewed. CYTOLOGY GROSS Received is <0.5 ml of clear fluid labeled with the patient's name and and designated per the requisition as CSF. Submitted for cytology preparation. / 08/08/18 TC:5 CPT: 97869
[2018-08-08] MEDS: 0.9% Normal Saline 1,000 ML 150 ML IV ×3 (02:11→17:19)
[2018-08-08] MEDS: Acetaminophen 325 MG Tablet 650 MG PO ×3 (06:06→20:14)
[2018-08-08] MEDS: Ondansetron 4 MG/2 ML Vial IV (06:06)
[2018-08-08] MEDS: 0.9% NaCl Peripheral Flush Adult/Peds IV (06:06)
[2018-08-08 06:15] LABS: Absolute Lymphocyte Count 0.84 X10^3/ul (0.83-4.51); Absolute Neutrophil Count 7.8 X10^3/uL (2.0-7.7); Hematocrit 35.3 % (37-47); Hemoglobin 11.5 g/dl (12.0-15.0); Lymphocyte # 0.84 X10^3/ul (4.0); Lymphocyte % 9.1 % (19-41); Mean Corp Hgb Conc 32.6 g/gl (32-36); Mean Corpuscular Volume 88.9 fL (81-99); Mean Platelet Vol. 12.8 fl (6.2-12.0); Monocyte# 0.55 X10^3/uL; Neutrophil # 7.81 X10^3/uL (2.7-7.7); Neutrophil % 84.6 % (47-70); Platelet Count 167 K/mm3 (150-450); RBC Distribution Width CV 12.4 % (11.6-14.6); RBC Distribution Width SD 39.4 fl (35.1-43.9); Red Blood Count 3.97 M/mm3 (4.2-5.4); White Blood Count 9.2 K/mm3 (4.4-11.0)
[2018-08-08 06:18] LABS: POSITIVE COUNT NO; POSITIVE DIFFERENTIAL NO; POSITIVE MORPHOLOGY NO
[2018-08-08 06:26] LABS: Anion Gap 3 (5-15); BUN 10 mg/dL (7-18); BUN/Creat Ratio 19.4 RATIO (10-20); Calcium,Total 7.6 mg/dL (8.5-10.1); Chloride 116 mmol/L (98-107); Creatinine, Serum 0.52 mg/dL (0.55-1.02); EST Glomerular Filtration Rate 155 mL/min (>60); Est Glom Filt Rate - Afr Amer 187 mL/min (>60); Estimated Creatinine Clearance 131.94 ml/min; Glucose 129 mg/dL (74-106); Potassium 3.7 mmol/L (3.5-5.1); Sodium Level 143 mmol/L (136-145)
[2018-08-08] MEDS: Famotidine 20 MG Tablet PO (08:26)
--- NOTE | 2018-08-08 09:30 | RAD_ITS ---
PROCEDURE: Fluoroscopic guided Lumbar Puncture. DATE: August 08, 2018 CLINICAL INDICATION: Left-sided numbness. Family history of multiple sclerosis. PHYSICIAN: Aly Ramsay M.D. MEDICATIONS: 1% lidocaine administered subcutaneously for local anesthesia. ACCESS SITE: Lower posterior back. NEEDLE: 22-gauge spinal needle. SPECIMEN: Approximately 6 mL clear]CSF fluid. FLUOROSCOPY TIME (if supplied): (48 seconds) minutes/seconds COMPLICATIONS: None immediate. The risks, benefits, and alternatives to the procedure were explained to the patient. The specific risks of bleeding, infection, and neurovascular injury were detailed and accepted. Witnessed informed consent was obtained. The patient was placed on the fluoroscopic table in the prone position. The level for needle entry was determined and marked. The overlying skin was cleaned and prepped in the usual sterile fashion. 2% lidocaine was administered subcutaneously for local anesthesia. Under fluoroscopic guidance a 22-gauge spinal needle was advanced. The thecal sac was entered at the L3- L4 vertebral level. The inner stylet was removed. There was spontaneous flow of clear CSF fluid. The patient was placed in a reversed Trendelenburg position. Approximately 6 mL of cerebrospinal fluid was collected using gravity. The specimen was collected and submitted to the laboratory for further evaluation. The needle was withdrawn,. Hemostasis was achieved and a sterile dressing placed. The patient tolerated the procedure well without any immediate complications. The patient was placed supine with head elevated and returned to the floor in stable condition. RAD/Fluoro Guided Lumbar Puncture IMPRESSION: Successful fluoroscopic-guided lumbar puncture. Electronically Signed: Aly Ramsay, at 11:00 EDT , Service support ,
--- NOTE | 2018-08-08 10:28 | PCM.PN.HOSP ---
Patient Problems: Active and Suspected Problems (Last Updated 03/08/17 @ 13:21 by Lesiva Silva) Numbness (Acute) Subjective: Patient seen and examined. Still complains of tingling in her arms and legs though she says the tingling in her legs is much better. She did have some heavy sensation around her left eye yesterday but that has resolved now. Review of systems otherwise negative. She is to go for LP today. Vitals/I&O's: Vital Signs Temp Pulse Resp BP Pulse Ox 98.0 F 45 L 12 120/78 99 08/08/18 09:15 08/08/18 09:15 08/08/18 09:15 08/08/18 09:15 08/08/18 09:15 Oxygen Delivery Method Room Air Weight: 138 lb 7.205 oz Body Mass Index (BMI) 25.3 Intake and Output for Last 24 Hours 08/06/18 08/07/18 08/08/18 23:59 23:59 23:59 Intake Total 1268 / 1268 3541 / 3541 1006 / 1006 Balance 1268 / 1268 3541 / 3541 1006 / 1006 General: Alert, Oriented x3, Cooperative, No apparent distress HEENT: Atraumatic, PERRLA, EOMI, Normocephalic Oral: Moist Mucosa Neck: Supple, No JVD, Negative Carotid Bruits Lungs: Clear to auscultation, Normal air movement, No rhonchi, No wheeze, No rales Cardiovascular: Regular rate, Regular Rhythm, Normal S1, Normal S2, No murmurs Abdomen: Bowel Sounds Present, Soft, Non Tender, Non-Distended, No Hepato-splenomegaly Extremities: No clubbing, No cyanosis, No edema, Capillary Refill Less than 3 Seconds Skin: No rashes, No breakdown Musculoskeletal: No Tenderness to Palpation of Joints or Extremities Lymphatic: No Cervical, Supraclavicular, or Inguinal Adenopathy Neurological: Cranial nerves II-XII grossly intact, Deep Tendon Reflexes 2+/4 and Symmetrical, Muscle tone normal, - - minimal numbness in LLE Psych/Mental Status: Normal Affect, Appropriate, Alert and oriented to time, place, person, mood and affect Laboratory Results 08/06/18 08:56: Vitamin B12 398, Vitamin D 25-Hydroxy 22.7 L 08/07/18 05:45: TSH 0.15 L, Rheumatoid Factor < 10.0 08/08/18 05:40: WBC 9.2, RBC 3.97 L, Hgb 11.5 L, Hct 35.3 L, MCV 88.9, MCH 29.0, MCHC 32.6, RDW 12.4, RDW Differential 39.4, Plt Count 167, MPV 12.8 H, Immature Gran % (Auto) 0.300, Neut % (Auto) 84.6 H, Lymph % (Auto) 9.1 L, [place] % (Auto) 6.0, Eos % (Auto) 0.0, Baso % (Auto) 0.0, Absolute Neuts (auto) 7.8 H, Absolute Lymphs (auto) 0.84, Total Counted Not Reportable 08/08/18 05:40: Sodium 143, Potassium 3.7, Chloride 116 H, Carbon Dioxide 24.0, Anion Gap 3 L, BUN 10, Creatinine 0.52 L, Estim Creat Clear Calc 131.94, Est GFR (MDRD) Af Amer 187, Est GFR (MDRD) Non-Af 155, BUN/Creatinine Ratio 19.4, Glucose 129 H, Calcium 7.6 L 08/08/18 05:40: ADRIÁN Screen Pending, STEPHANE-1 Antibody Pending, SS-A/Ro IgG Antibody Pending, SS-B/La IgG Antibody Pending, Sm (Justin) Antibody Pending, [employer] Antibody Pending, Scl-70 Scleroderma Ab Pending, Double Strand DNA Ab Pending, Centromere B Antibody Pending 08/08/18 05:40: Angiotensin Convert Enz Pending, c-ANCA Antibody Pending, p-ANCA Antibody Pending, Anti-ss DNA IgG Ab Pending, Hep Bs Antigen Pending, Hepatitis C Ab (EIA) Pending 08/08/18 05:40: Total Protein (PEP) Pending, Albumin (PEP) Pending, Globulin (PEP) Pending, Albumin/Globulin (PEP) Pending, Zfuek-1-Svircbmmy Pending, Dwlls-5-Zgvyrwotr Pending, Beta Globulins Pending, Gamma Globulins Pending, M-Augie Pending Current Medications Acetaminophen (Tylenol) 650 mg PO Q6H PRN PRN PRN Reason: PAIN Last Admin: 08/08/18 06:06 Dose: 650 mg Dextrose (D50w Syringe) 0 gm IV X1 PRN; Protocol PRN Reason: Hypoglycemia Famotidine (Pepcid) 20 mg PO DAILY [facility] Last Admin: 08/08/18 08:26 Dose: 20 mg Glucagon () 1 mg IM .X1 PRN PRN Reason: Hypoglycemia Sodium Chloride () 1,000 mls @ 150 mls/hr IV .Q6H40M [facility] Last Admin: 08/08/18 08:26 Dose: 150 mls/hr Methylprednisolone 1,000 mg/ (Sodium Chloride) 116 mls @ 100 mls/hr IV DAILY [facility] Last Admin: 08/08/18 10:26 Dose: 100 mls/hr Ondansetron HCl (Zofran) 4 mg IV Q6H PRN PRN PRN Reason: NAUSEA Last Admin: 08/08/18 06:06 Dose: 4 mg Sodium Chloride () 5 - 15 ml IV UD PRN PRN Reason: SALINE FLUSH Last Admin: 08/08/18 06:06 Dose: 10 ml Medical Necessity - Tobacco Use Smoking Status: Never smoker Assessment/Plan All Active Problems (Last Updated 03/08/17 @ 13:21 by Lesvia Silva) Numbness (Acute) 1. Acute MS flare up in a newly diagnosed MS patient brain MRI: Multiple enhancing plaques in the cerebral hemispheres bilaterally in the left cerebellar hemisphere consistent with active demyelination. Findings consistent with clinical diagnosis of multiple sclerosis. Cervical spine MRI showed plaque at C3-4 without active demyelination at this time. thoracic spine MRI was normal IV solumedrol 1000mg daily today is day 3; to complete 5 day course for LP today neurology on board PT/OT on board DVT prophylaxis: SCDs Code Visit OBSV E&M: 98374 Subsequent observation care L2
[2018-08-08 10:37] LABS: Cytology, Body Fluid / CSF SEE PATHOLOGY REPORT
--- NOTE | 2018-08-08 10:38 | PN_ITS ---
Patient Problems: Active and Suspected Problems (Last Updated 03/08/17 @ 13:21 by Lesvia Silva) Numbness (Acute) Subjective: Patient seen and examined. Still complains of tingling in her arms and legs though she says the tingling in her legs is much better. She did have some heavy sensation around her left eye yesterday but that has resolved now. Review of systems otherwise negative. She is to go for LP today. Vitals/I&O's: Vital Signs Temp Pulse Resp BP Pulse Ox 98.0 F 45 L 12 120/78 99 08/08/18 09:15 08/08/18 09:15 08/08/18 09:15 08/08/18 09:15 08/08/18 09:15 Oxygen Delivery Method Room Air Weight: 138 lb 7.205 oz Body Mass Index (BMI) 25.3 Intake and Output for Last 24 Hours 08/06/18 08/07/18 08/08/18 23:59 23:59 23:59 Intake Total 1268 / 1268 3541 / 3541 1006 / 1006 Balance 1268 / 1268 3541 / 3541 1006 / 1006 General: Alert, Oriented x3, Cooperative, No apparent distress HEENT: Atraumatic, PERRLA, EOMI, Normocephalic Oral: Moist Mucosa Neck: Supple, No JVD, Negative Carotid Bruits Lungs: Clear to auscultation, Normal air movement, No rhonchi, No wheeze, No rales Cardiovascular: Regular rate, Regular Rhythm, Normal S1, Normal S2, No murmurs Abdomen: Bowel Sounds Present, Soft, Non Tender, Non-Distended, No Hepato- splenomegaly Extremities: No clubbing, No cyanosis, No edema, Capillary Refill Less than 3 Seconds Skin: No rashes, No breakdown Musculoskeletal: No Tenderness to Palpation of Joints or Extremities Lymphatic: No Cervical, Supraclavicular, or Inguinal Adenopathy Neurological: Cranial nerves II-XII grossly intact, Deep Tendon Reflexes 2+/4 and Symmetrical, Muscle tone normal, - - minimal numbness in LLE Psych/Mental Status: Normal Affect, Appropriate, Alert and oriented to time, place, person, mood and affect Laboratory Results 08/06/18 08:56: Vitamin B12 398, Vitamin D 25-Hydroxy 22.7 L 08/07/18 05:45: TSH 0.15 L, Rheumatoid Factor < 10.0 08/08/18 05:40: WBC 9.2, RBC 3.97 L, Hgb 11.5 L, Hct 35.3 L, MCV 88.9, MCH 29.0, MCHC 32.6, RDW 12.4, RDW Differential 39.4, Plt Count 167, MPV 12.8 H, Immature Gran % (Auto) 0.300, Neut % (Auto) 84.6 H, Lymph % (Auto) 9.1 L, [place] % (Auto) 6.0, Eos % (Auto) 0.0, Baso % (Auto) 0.0, Absolute Neuts (auto) 7.8 H, Absolute Lymphs (auto) 0.84, Total Counted Not Reportable 08/08/18 05:40: Sodium 143, Potassium 3.7, Chloride 116 H, Carbon Dioxide 24.0, Anion Gap 3 L, BUN 10, Creatinine 0.52 L, Estim Creat Clear Calc 131.94, Est GFR (MDRD) Af Amer 187, Est GFR (MDRD) Non-Af 155, BUN/Creatinine Ratio 19.4, Glucose 129 H, Calcium 7.6 L 08/08/18 05:40: ADRIÁN Screen Pending, STEPHANE-1 Antibody Pending, SS-A/Ro IgG Antibody Pending, SS-B/La IgG Antibody Pending, Sm (Justin) Antibody Pending, MEDICAL DIRECTOR[employer]IAN Antibody Pending, Scl-70 Scleroderma Ab Pending, Double Strand DNA Ab Pending, Centromere B Antibody Pending 08/08/18 05:40: Angiotensin Convert Enz Pending, c-ANCA Antibody Pending, p-ANCA Antibody Pending, Anti-ss DNA IgG Ab Pending, Hep Bs Antigen Pending, Hepatitis C Ab (EIA) Pending 08/08/18 05:40: Total Protein (PEP) Pending, Albumin (PEP) Pending, Globulin (PEP) Pending, Albumin/Globulin (PEP) Pending, Qapdh-9-Ioezjnkco Pending, Tmwsg-4-Iooqwcmnp Pending, Beta Globulins Pending, Gamma Globulins Pending, M- Augie Pending Current Medications Acetaminophen (Tylenol) 650 mg PO Q6H PRN PRN PRN Reason: PAIN Last Admin: 08/08/18 06:06 Dose: 650 mg Dextrose (D50w Syringe) 0 gm IV X1 PRN; Protocol PRN Reason: Hypoglycemia Famotidine (Pepcid) 20 mg PO DAILY [facility] Last Admin: 08/08/18 08:26 Dose: 20 mg Glucagon () 1 mg IM .X1 PRN PRN Reason: Hypoglycemia Sodium Chloride () 1,000 mls @ 150 mls/hr IV .Q6H40M [facility] Last Admin: 08/08/18 08:26 Dose: 150 mls/hr Methylprednisolone 1,000 mg/ (Sodium Chloride) 116 mls @ 100 mls/hr IV DAILY [facility] Last Admin: 08/08/18 10:26 Dose: 100 mls/hr Ondansetron HCl (Zofran) 4 mg IV Q6H PRN PRN PRN Reason: NAUSEA Last Admin: 08/08/18 06:06 Dose: 4 mg Sodium Chloride () 5 - 15 ml IV UD PRN PRN Reason: SALINE FLUSH Last Admin: 08/08/18 06:06 Dose: 10 ml Medical Necessity - Tobacco Use Smoking Status: Never smoker Assessment/Plan All Active Problems (Last Updated 03/08/17 @ 13:21 by Lesvia Silva) Numbness (Acute) 1. Acute MS flare up in a newly diagnosed MS patient * brain MRI: Multiple enhancing plaques in the cerebral hemispheres bilaterally in the left cerebellar hemisphere consistent with active demyelination. Findings consistent with clinical diagnosis of multiple sclerosis. * Cervical spine MRI showed plaque at C3-4 without active demyelination at this time. * thoracic spine MRI was normal * IV solumedrol 1000mg daily today is day 3; to complete 5 day course * for LP today * neurology on board * PT/OT on board DVT prophylaxis: SCDs Code Visit OBSV E&M: [id number] Subsequent observation care L2
[2018-08-08 11:18] LABS: White Count, CSF 0.006 10^3/uL (0.000-0.005)
[2018-08-08 11:24] LABS: Glucose Spinal Fluid 79 mg/dL (40-75)
[2018-08-08 11:32] LABS: Body Fluid QC Type(s) BF1Q
[2018-08-08 11:42] LABS: Auto B Fluid Analyzer BKGD Ct COUNTS W/IN LIMITS (W/IN LIMITS)
[2018-08-08 11:43] LABS: Appearance CSF (character) CLEAR (Clear); CSF Color COLORLESS (Colorless); RBC Count, Spinal Fluid 9 /mm-3 (None seen); Tested Tube # 1; Total Cell Count CSF 0.006 10^3/uL
--- NOTE | 2018-08-08 13:38 | PCM.PN.NEU ---
Patient Problems: Active and Suspected Problems (Last Updated 03/08/17 @ 13:21 by Lesvia Silva) Numbness (Acute) Subjective: No issues overnight. Patient had LP done this morning. Per patient she tolerated the procedure well and denies any headache at present. Per patient she feels her paresthesias have been improving. - Physical Exam General: Alert HEENT: Normocephalic Neck: Supple Lungs: Normal air movement Cardiovascular: Normal S1, Normal S2 Abdomen: Bowel Sounds Present Extremities: No cyanosis Neurological: - - Conscious, alert, CN?2-12 grossly intact, power 5/5 all 4 extremities, subjective sensory loss to light touch temperature left feet/left leg and thighs and left lower abdomen (per patient is improving), no cerebellar signs, reflexes +2 B/L B/S/T/K/A, plantars B/L flexor, gait deferred, no NR, fundus not visualized. Psych/Mental Status: Normal Affect Vital Signs Temp Pulse Resp BP Pulse Ox 98.0 F 45 L 12 120/78 99 08/08/18 09:15 08/08/18 09:15 08/08/18 09:15 08/08/18 09:15 08/08/18 09:15 Oxygen Delivery Method Room Air Weight: 62.8 kg Body Mass Index (BMI) 25.3 Intake and Output for Last 24 Hours 08/06/18 08/07/18 08/08/18 23:59 23:59 23:59 Intake Total 1268 / 1268 3541 / 3541 1773 / 1773 Balance 1268 / 1268 3541 / 3541 1773 / 1773 Microbiology Past 72 Hours 08/08/18 10:13 Gram Stain - Final Csf, Spinal Fluid Laboratory Tests Past 24 Hrs 08/06/18 08/07/18 08/08/18 08:56 05:45 05:40 WBC 9.2 RBC 3.97 L Hgb 11.5 L Hct 35.3 L MCV 88.9 MCH 29.0 MCHC 32.6 RDW 12.4 RDW Differential 39.4 Plt Count 167 MPV 12.8 H Immature Gran % (Auto) 0.300 Neut % (Auto) 84.6 H Lymph % (Auto) 9.1 L [place] % (Auto) 6.0 Eos % (Auto) 0.0 Baso % (Auto) 0.0 Absolute Neuts (auto) 7.8 H Absolute Lymphs (auto) 0.84 Total Counted Not Reportable Sodium Potassium Chloride Carbon Dioxide Anion Gap BUN Creatinine Estim Creat Clear Calc Est GFR (MDRD) Af Amer Est GFR (MDRD) Non-Af BUN/Creatinine Ratio Glucose Calcium Total Protein (PEP) Albumin (PEP) Globulin (PEP) Albumin/Globulin (PEP) Hyict-6-Vssmskjfp Hmyvr-4-Muxootlcr Beta Globulins Gamma Globulins M-Augie Angiotensin Convert Enz Vitamin B12 398 Vitamin D 25-Hydroxy 22.7 L TSH 0.15 L CSF Appearance CSF Color CSF WBC CSF RBC CSF Cell Count Tube # CSF Total Cell Counted CSF Comment CSF Glucose CSF Total Protein CSF Cryptococcus Ag Rheumatoid Factor < 10.0 ADRIÁN Screen c-ANCA Antibody p-ANCA Antibody STEPHANE-1 Antibody SS-A/Ro IgG Antibody SS-B/La IgG Antibody Sm (Justin) Antibody [employer] Antibody Scl-70 Scleroderma Ab Double Strand DNA Ab Anti-ss DNA IgG Ab Centromere B Antibody CMV DNA Qual PCR Hep Bs Antigen Hepatitis C Ab (EIA) HSV I DNA PCR HSV II DNA PCR Miscellaneous Cytology Miscellaneous Test 08/08/18 08/08/18 08/08/18 05:40 05:40 05:40 WBC RBC Hgb Hct MCV MCH MCHC RDW RDW Differential Plt Count MPV Immature Gran % (Auto) Neut % (Auto) Lymph % (Auto) [place] % (Auto) Eos % (Auto) Baso % (Auto) Absolute Neuts (auto) Absolute Lymphs (auto) Total Counted Sodium 143 Potassium 3.7 Chloride 116 H Carbon Dioxide 24.0 Anion Gap 3 L BUN 10 Creatinine 0.52 L Estim Creat Clear Calc 131.94 Est GFR (MDRD) Af Amer 187 Est GFR (MDRD) Non-Af 155 BUN/Creatinine Ratio 19.4 Glucose 129 H Calcium 7.6 L Total Protein (PEP) Albumin (PEP) Globulin (PEP) Albumin/Globulin (PEP) Kugpo-7-Ekffqvsrj Umdqw-4-Mdxmuhiuj Beta Globulins Gamma Globulins M-Augie Angiotensin Convert Enz Pending Vitamin B12 Vitamin D 25-Hydroxy TSH CSF Appearance CSF Color CSF WBC CSF RBC CSF Cell Count Tube # CSF Total Cell Counted CSF Comment CSF Glucose CSF Total Protein CSF Cryptococcus Ag Rheumatoid Factor ADRIÁN Screen Pending c-ANCA Antibody Pending p-ANCA Antibody Pending STEPHANE-1 Antibody Pending SS-A/Ro IgG Antibody Pending SS-B/La IgG Antibody Pending Sm (Justin) Antibody Pending [employer] Antibody Pending Scl-70 Scleroderma Ab Pending Double Strand DNA Ab Pending Anti-ss DNA IgG Ab Pending Centromere B Antibody Pending CMV DNA Qual PCR Hep Bs Antigen Pending Hepatitis C Ab (EIA) Pending HSV I DNA PCR HSV II DNA PCR Miscellaneous Cytology Miscellaneous Test 08/08/18 08/08/18 08/08/18 05:40 10:13 10:13 WBC RBC Hgb Hct MCV MCH MCHC RDW RDW Differential Plt Count MPV Immature Gran % (Auto) Neut % (Auto) Lymph % (Auto) [place] % (Auto) Eos % (Auto) Baso % (Auto) Absolute Neuts (auto) Absolute Lymphs (auto) Total Counted Sodium Potassium Chloride Carbon Dioxide Anion Gap BUN Creatinine Estim Creat Clear Calc Est GFR (MDRD) Af Amer Est GFR (MDRD) Non-Af BUN/Creatinine Ratio Glucose Calcium Total Protein (PEP) Pending Albumin (PEP) Pending Globulin (PEP) Pending Albumin/Globulin (PEP) Pending Ywjnj-4-Reyekktge Pending Ilwxn-8-Lywynxnwp Pending Beta Globulins Pending Gamma Globulins Pending M-Augie Pending Angiotensin Convert Enz Vitamin B12 Vitamin D 25-Hydroxy TSH CSF Appearance CSF Color CSF WBC CSF RBC CSF Cell Count Tube # CSF Total Cell Counted CSF Comment CSF Glucose 79 H CSF Total Protein 28.0 CSF Cryptococcus Ag Pending Rheumatoid Factor ADRIÁN Screen c-ANCA Antibody p-ANCA Antibody STEPHANE-1 Antibody SS-A/Ro IgG Antibody SS-B/La IgG Antibody Sm (Justin) Antibody [employer] Antibody Scl-70 Scleroderma Ab Double Strand DNA Ab Anti-ss DNA IgG Ab Centromere B Antibody CMV DNA Qual PCR Pending Hep Bs Antigen Hepatitis C Ab (EIA) HSV I DNA PCR Pending HSV II DNA PCR Pending Miscellaneous Cytology Miscellaneous Test 08/08/18 08/08/18 08/08/18 10:13 10:13 10:13 WBC RBC Hgb Hct MCV MCH MCHC RDW RDW Differential Plt Count MPV Immature Gran % (Auto) Neut % (Auto) Lymph % (Auto) [place] % (Auto) Eos % (Auto) Baso % (Auto) Absolute Neuts (auto) Absolute Lymphs (auto) Total Counted Sodium Potassium Chloride Carbon Dioxide Anion Gap BUN Creatinine Estim Creat Clear Calc Est GFR (MDRD) Af Amer Est GFR (MDRD) Non-Af BUN/Creatinine Ratio Glucose Calcium Total Protein (PEP) Albumin (PEP) Globulin (PEP) Albumin/Globulin (PEP) Dtytk-8-Uwjbgeaba Pzmpa-6-Gytlnlogq Beta Globulins Gamma Globulins M-Augie Angiotensin Convert Enz Vitamin B12 Vitamin D 25-Hydroxy TSH CSF Appearance CLEAR CSF Color COLORLESS CSF WBC 0.006 H CSF RBC 9 H CSF Cell Count Tube # 1 CSF Total Cell Counted 0.006 CSF Comment May follow CSF Glucose CSF Total Protein CSF Cryptococcus Ag Rheumatoid Factor ADRIÁN Screen c-ANCA Antibody p-ANCA Antibody STEPHANE-1 Antibody SS-A/Ro IgG Antibody SS-B/La IgG Antibody Sm (Justin) Antibody [employer] Antibody Scl-70 Scleroderma Ab Double Strand DNA Ab Anti-ss DNA IgG Ab Centromere B Antibody CMV DNA Qual PCR Hep Bs Antigen Hepatitis C Ab (EIA) HSV I DNA PCR HSV II DNA PCR Miscellaneous Cytology Miscellaneous Test Pending Pending 08/08/18 10:13 WBC RBC Hgb Hct MCV MCH MCHC RDW RDW Differential Plt Count MPV Immature Gran % (Auto) Neut % (Auto) Lymph % (Auto) [place] % (Auto) Eos % (Auto) Baso % (Auto) Absolute Neuts (auto) Absolute Lymphs (auto) Total Counted Sodium Potassium Chloride Carbon Dioxide Anion Gap BUN Creatinine Estim Creat Clear Calc Est GFR (MDRD) Af Amer Est GFR (MDRD) Non-Af BUN/Creatinine Ratio Glucose Calcium Total Protein (PEP) Albumin (PEP) Globulin (PEP) Albumin/Globulin (PEP) Shhfd-2-Zovybzjxg Ceenr-5-Kvnavmelp Beta Globulins Gamma Globulins M-uAgie Angiotensin Convert Enz Vitamin B12 Vitamin D 25-Hydroxy TSH CSF Appearance CSF Color CSF WBC CSF RBC CSF Cell Count Tube # CSF Total Cell Counted CSF Comment CSF Glucose CSF Total Protein CSF Cryptococcus Ag Rheumatoid Factor ADRIÁN Screen c-ANCA Antibody p-ANCA Antibody STEPHANE-1 Antibody SS-A/Ro IgG Antibody SS-B/La IgG Antibody Sm (Justin) Antibody [employer] Antibody Scl-70 Scleroderma Ab Double Strand DNA Ab Anti-ss DNA IgG Ab Centromere B Antibody CMV DNA Qual PCR Hep Bs Antigen Hepatitis C Ab (EIA) HSV I DNA PCR HSV II DNA PCR Miscellaneous Cytology Pending Miscellaneous Test Medical Necessity - Tobacco Use Smoking Status: Never smoker Assessment/Plan All Active Problems (Last Updated 03/08/17 @ 13:21 by Lesvia Silva) Numbness (Acute) The patient is a 22 year old F with no significant PMH admitted with numbness and paresthesias. Per patient she started having left foot numbness and paresthesias on Monday about 2 days ago 08/03/2018, later patient also had a headache on Monday for which she took Motrin, per patient her paresthesias worsened and the numbness extended to the arm on the left side and the right foot and since 08/06/2018 patient feels that her abdomen is also numb. She denies any neck pain, radicular symptoms, urinary incontinence, burning pain in the feet. She complains of chronic low back pain. Per patient she does get headaches about 2-3 times a week, has occasional photophobia/phonophobia, occasional visual blurring, denies nausea. Per patient she just takes jbmu-pbz-gfbrdxo medication for her headaches. At present she denies any headache, dizziness, visual disturbances, speech disturbances, focal motor weakness. Per patient she has a strong family history of multiple sclerosis and her father and aunt. MRI brain reported to show multiple enhancing plaques within the cerebral hemispheres bilaterally and cerebellum consistent with active demyelination and MRI C-spine reported to show plaque at C3-C4 without active demyelination. Minimal disc bulging at C5-C6 and C6-C7 without any spinal stenosis Impression New onset demyelinating disease-likely MS Plan ?Solu-Medrol 1 g IV once daily for 5 days. ?MRI thoracic spine with and without contrast- no demyelinating lesion. ?LP?cell count-6, protein-28, glucose-78, Await CSF oligoclonal bands, IgG index, myelin basic protein, BRIANA level. -Vitamin D-22.7 (L), vitamin B12-398, TSH-0.15 (L) -Vitamin D 6000 units PO once daily for 8 weeks followed by 1000 units PO BID. ?Await ADRIÁN/ANCA/SSA/SSB antibody/RF, serum BRIANA level and Lyme's antibody testing, NMO ab and MOG antibody, HBsAg, Hepatitis C, immunoglobulins level, SPEP and UPEP with GABE. ?Plan Ocrevus infusion as outpatient ?Labs reviewed ?Fall precautions ?GI/DVT prophylaxis ?Further medical management per hospitalist recommendation ?Follow-up with neurology as outpatient in 4 to 6 weeks ?Please call with questions if any ?Thank you for allowing us to participate in patient's current management
--- NOTE | 2018-08-08 13:43 | PN.NEURO_ITS ---
Patient Problems: Active and Suspected Problems (Last Updated 03/08/17 @ 13:21 by Lesvia Silva) Numbness (Acute) Subjective: No issues overnight. Patient had LP done this morning. Per patient she tolerated the procedure well and denies any headache at present. Per patient she feels her paresthesias have been improving. - Physical Exam General: Alert HEENT: Normocephalic Neck: Supple Lungs: Normal air movement Cardiovascular: Normal S1, Normal S2 Abdomen: Bowel Sounds Present Extremities: No cyanosis Neurological: - - Conscious, alert, CN?2-12 grossly intact, power 5/5 all 4 extremities, subjective sensory loss to light touch temperature left feet/left leg and thighs and left lower abdomen (per patient is improving), no cerebellar signs, reflexes +2 B/L B/S/T/K/A, plantars B/L flexor, gait deferred, no NR, fundus not visualized. Psych/Mental Status: Normal Affect Vital Signs Temp Pulse Resp BP Pulse Ox 98.0 F 45 L 12 120/78 99 08/08/18 09:15 08/08/18 09:15 08/08/18 09:15 08/08/18 09:15 08/08/18 09:15 Oxygen Delivery Method Room Air Weight: 62.8 kg Body Mass Index (BMI) 25.3 Intake and Output for Last 24 Hours 08/06/18 08/07/18 08/08/18 23:59 23:59 23:59 Intake Total 1268 / 1268 3541 / 3541 1773 / 1773 Balance 1268 / 1268 3541 / 3541 1773 / 1773 Microbiology Past 72 Hours 08/08/18 10:13 Gram Stain - Final Csf, Spinal Fluid Laboratory Tests Past 24 Hrs 08/06/18 08/07/18 08/08/18 08:56 05:45 05:40 WBC 9.2 RBC 3.97 L Hgb 11.5 L Hct 35.3 L MCV 88.9 MCH 29.0 MCHC 32.6 RDW 12.4 RDW Differential 39.4 Plt Count 167 MPV 12.8 H Immature Gran % (Auto) 0.300 Neut % (Auto) 84.6 H Lymph % (Auto) 9.1 L Hunt % (Auto) 6.0 Eos % (Auto) 0.0 Baso % (Auto) 0.0 Absolute Neuts (auto) 7.8 H Absolute Lymphs (auto) 0.84 Total Counted Not Reportable Sodium Potassium Chloride Carbon Dioxide Anion Gap BUN Creatinine Estim Creat Clear Calc Est GFR (MDRD) Af Amer Est GFR (MDRD) Non-Af BUN/Creatinine Ratio Glucose Calcium Total Protein (PEP) Albumin (PEP) Globulin (PEP) Albumin/Globulin (PEP) Bbpkh-0-Ddowrkkbm Hhrka-2-Qniaqbeoc Beta Globulins Gamma Globulins M-Augie Angiotensin Convert Enz Vitamin B12 398 Vitamin D 25-Hydroxy 22.7 L TSH 0.15 L CSF Appearance CSF Color CSF WBC CSF RBC CSF Cell Count Tube # CSF Total Cell Counted CSF Comment CSF Glucose CSF Total Protein CSF Cryptococcus Ag Rheumatoid Factor < 10.0 ADRIÁN Screen c-ANCA Antibody p-ANCA Antibody STEPHANE-1 Antibody SS-A/Ro IgG Antibody SS-B/La IgG Antibody Sm (Justin) Antibody PROFESSOR OF APOLOGET[employer] Antibody Scl-70 Scleroderma Ab Double Strand DNA Ab Anti-ss DNA IgG Ab Centromere B Antibody CMV DNA Qual PCR Hep Bs Antigen Hepatitis C Ab (EIA) HSV I DNA PCR HSV II DNA PCR Miscellaneous Cytology Miscellaneous Test 08/08/18 08/08/18 08/08/18 05:40 05:40 05:40 WBC RBC Hgb Hct MCV MCH MCHC RDW RDW Differential Plt Count MPV Immature Gran % (Auto) Neut % (Auto) Lymph % (Auto) Hunt % (Auto) Eos % (Auto) Baso % (Auto) Absolute Neuts (auto) Absolute Lymphs (auto) Total Counted Sodium 143 Potassium 3.7 Chloride 116 H Carbon Dioxide 24.0 Anion Gap 3 L BUN 10 Creatinine 0.52 L Estim Creat Clear Calc 131.94 Est GFR (MDRD) Af Amer 187 Est GFR (MDRD) Non-Af 155 BUN/Creatinine Ratio 19.4 Glucose 129 H Calcium 7.6 L Total Protein (PEP) Albumin (PEP) Globulin (PEP) Albumin/Globulin (PEP) Xvdkx-8-Jphqklrtr Navkg-3-Fzmqgmbth Beta Globulins Gamma Globulins M-Augie Angiotensin Convert Enz Pending Vitamin B12 Vitamin D 25-Hydroxy TSH CSF Appearance CSF Color CSF WBC CSF RBC CSF Cell Count Tube # CSF Total Cell Counted CSF Comment CSF Glucose CSF Total Protein CSF Cryptococcus Ag Rheumatoid Factor ADRIÁN Screen Pending c-ANCA Antibody Pending p-ANCA Antibody Pending STEPHANE-1 Antibody Pending SS-A/Ro IgG Antibody Pending SS-B/La IgG Antibody Pending Sm (Justin) Antibody Pending PROFESSOR [employer] APOLOGET[employer] Antibody Pending Scl-70 Scleroderma Ab Pending Double Strand DNA Ab Pending Anti-ss DNA IgG Ab Pending Centromere B Antibody Pending CMV DNA Qual PCR Hep Bs Antigen Pending Hepatitis C Ab (EIA) Pending HSV I DNA PCR HSV II DNA PCR Miscellaneous Cytology Miscellaneous Test 08/08/18 08/08/18 08/08/18 05:40 10:13 10:13 WBC RBC Hgb Hct MCV MCH MCHC RDW RDW Differential Plt Count MPV Immature Gran % (Auto) Neut % (Auto) Lymph % (Auto) Hunt % (Auto) Eos % (Auto) Baso % (Auto) Absolute Neuts (auto) Absolute Lymphs (auto) Total Counted Sodium Potassium Chloride Carbon Dioxide Anion Gap BUN Creatinine Estim Creat Clear Calc Est GFR (MDRD) Af Amer Est GFR (MDRD) Non-Af BUN/Creatinine Ratio Glucose Calcium Total Protein (PEP) Pending Albumin (PEP) Pending Globulin (PEP) Pending Albumin/Globulin (PEP) Pending Uwmzu-1-Bzfpuiuxs Pending Bzgdr-1-Cgsztxsjg Pending Beta Globulins Pending Gamma Globulins Pending M-Augie Pending Angiotensin Convert Enz Vitamin B12 Vitamin D 25-Hydroxy TSH CSF Appearance CSF Color CSF WBC CSF RBC CSF Cell Count Tube # CSF Total Cell Counted CSF Comment CSF Glucose 79 H CSF Total Protein 28.0 CSF Cryptococcus Ag Pending Rheumatoid Factor ADRIÁN Screen c-ANCA Antibody p-ANCA Antibody STEPHANE-1 Antibody SS-A/Ro IgG Antibody SS-B/La IgG Antibody Sm (Justin) Antibody PROFESSOR [employer]OLOGET[employer] Antibody Scl-70 Scleroderma Ab Double Strand DNA Ab Anti-ss DNA IgG Ab Centromere B Antibody CMV DNA Qual PCR Pending Hep Bs Antigen Hepatitis C Ab (EIA) HSV I DNA PCR Pending HSV II DNA PCR Pending Miscellaneous Cytology Miscellaneous Test 08/08/18 08/08/18 08/08/18 10:13 10:13 10:13 WBC RBC Hgb Hct MCV MCH MCHC RDW RDW Differential Plt Count MPV Immature Gran % (Auto) Neut % (Auto) Lymph % (Auto) Hunt % (Auto) Eos % (Auto) Baso % (Auto) Absolute Neuts (auto) Absolute Lymphs (auto) Total Counted Sodium Potassium Chloride Carbon Dioxide Anion Gap BUN Creatinine Estim Creat Clear Calc Est GFR (MDRD) Af Amer Est GFR (MDRD) Non-Af BUN/Creatinine Ratio Glucose Calcium Total Protein (PEP) Albumin (PEP) Globulin (PEP) Albumin/Globulin (PEP) Nlmpa-1-Plgtstvpo Zxjig-1-Pkutleygr Beta Globulins Gamma Globulins M-Augie Angiotensin Convert Enz Vitamin B12 Vitamin D 25-Hydroxy TSH CSF Appearance CLEAR CSF Color COLORLESS CSF WBC 0.006 H CSF RBC 9 H CSF Cell Count Tube # 1 CSF Total Cell Counted 0.006 CSF Comment May follow CSF Glucose CSF Total Protein CSF Cryptococcus Ag Rheumatoid Factor ADRIÁN Screen c-ANCA Antibody p-ANCA Antibody STEPHANE-1 Antibody SS-A/Ro IgG Antibody SS-B/La IgG Antibody Sm (Justin) Antibody PROFESSOR [employer]OLOGET[employer] Antibody Scl-70 Scleroderma Ab Double Strand DNA Ab Anti-ss DNA IgG Ab Centromere B Antibody CMV DNA Qual PCR Hep Bs Antigen Hepatitis C Ab (EIA) HSV I DNA PCR HSV II DNA PCR Miscellaneous Cytology Miscellaneous Test Pending Pending 08/08/18 10:13 WBC RBC Hgb Hct MCV MCH MCHC RDW RDW Differential Plt Count MPV Immature Gran % (Auto) Neut % (Auto) Lymph % (Auto) Hunt % (Auto) Eos % (Auto) Baso % (Auto) Absolute Neuts (auto) Absolute Lymphs (auto) Total Counted Sodium Potassium Chloride Carbon Dioxide Anion Gap BUN Creatinine Estim Creat Clear Calc Est GFR (MDRD) Af Amer Est GFR (MDRD) Non-Af BUN/Creatinine Ratio Glucose Calcium Total Protein (PEP) Albumin (PEP) Globulin (PEP) Albumin/Globulin (PEP) Kwhgu-1-Ikfgsjdyw Gyicp-5-Vlsupycmj Beta Globulins Gamma Globulins M-Augie Angiotensin Convert Enz Vitamin B12 Vitamin D 25-Hydroxy TSH CSF Appearance CSF Color CSF WBC CSF RBC CSF Cell Count Tube # CSF Total Cell Counted CSF Comment CSF Glucose CSF Total Protein CSF Cryptococcus Ag Rheumatoid Factor ADRIÁN Screen c-ANCA Antibody p-ANCA Antibody STEPHANE-1 Antibody SS-A/Ro IgG Antibody SS-B/La IgG Antibody Sm (Justin) Antibody PROFESSOR [employer] APOLOGET[employer] Antibody Scl-70 Scleroderma Ab Double Strand DNA Ab Anti-ss DNA IgG Ab Centromere B Antibody CMV DNA Qual PCR Hep Bs Antigen Hepatitis C Ab (EIA) HSV I DNA PCR HSV II DNA PCR Miscellaneous Cytology Pending Miscellaneous Test Medical Necessity - Tobacco Use Smoking Status: Never smoker Assessment/Plan All Active Problems (Last Updated 03/08/17 @ 13:21 by Lesvia Silva) Numbness (Acute) The patient is a 22 year old F with no significant PMH admitted with numbness and paresthesias. Per patient she started having left foot numbness and paresthesias on Monday about 2 days ago 08/03/2018, later patient also had a headache on Monday for which she took Motrin, per patient her paresthesias worsened and the numbness extended to the arm on the left side and the right foot and since 08/06/2018 patient feels that her abdomen is also numb. She denies any neck pain, radicular symptoms, urinary incontinence, burning pain in the feet. She complains of chronic low back pain. Per patient she does get headaches about 2-3 times a week, has occasional photophobia/phonophobia, occasional visual blurring, denies nausea. Per patient she just takes dqos-kbb-gkpbcwn medication for her headaches. At present she denies any headache, dizziness, visual disturbances, speech disturbances, focal motor weakness. Per patient she has a strong family history of multiple sclerosis and her father and aunt. MRI brain reported to show multiple enhancing plaques within the cerebral hemispheres bilaterally and cerebellum consistent with active demyelination and MRI C-spine reported to show plaque at C3-C4 without active demyelination. Minimal disc bulging at C5-C6 and C6-C7 without any spinal stenosis Impression New onset demyelinating disease-likely MS Plan ?Solu-Medrol 1 g IV once daily for 5 days. ?MRI thoracic spine with and without contrast- no demyelinating lesion. ?LP?cell count-6, protein-28, glucose-78, Await CSF oligoclonal bands, IgG index, myelin basic protein, BRIANA level. -Vitamin D-22.7 (L), vitamin B12-398, TSH-0.15 (L) -Vitamin D 6000 units PO once daily for 8 weeks followed by 1000 units PO BID. ?Await ADRIÁN/ANCA/SSA/SSB antibody/RF, serum BRIANA level and Lyme's antibody testing, NMO ab and MOG antibody, HBsAg, Hepatitis C, immunoglobulins level, SPEP and UPEP with GABE. ?Plan Ocrevus infusion as outpatient ?Labs reviewed ?Fall precautions ?GI/DVT prophylaxis ?Further medical management per hospitalist recommendation ?Follow-up with neurology as outpatient in 4 to 6 weeks ?Please call with questions if any ?Thank you for allowing us to participate in patient's current management
[2018-08-08 19:30] LABS: Color, Urine Yellow (Yellow); Glucose, Dipstick 1000 mg/dl (Normal); Ketone-Dipstick Negative (Negative); Leukocyte Esterase-Dipstick Negative /ul (Negative); Nitrite-Dipstick Negative (Negative); Occult Blood-Urine Negative /ul (Negative); Protein-Dipstick 15 mg/dl (Negative); Specific Gravity, Urine 1.015 (1.002-1.030); Urine Bilirubin Dipstick Negative (Negative); Urine Clarity Clear (Clear); Urine Urobilinogen 4 mg/dl (Normal)
[2018-08-09] VITALS (9 sets, daily range): BP systolic 132–149; BP diastolic 71–88; PULSE 44–85; RESP 12–16; TEMP 36.6–36.9; O2SAT 93–97
[2018-08-09] MEDS: 0.9% Normal Saline 1,000 ML 150 ML IV ×2 (00:07→06:16)
[2018-08-09] MEDS: Acetaminophen 325 MG Tablet 650 MG PO ×3 (03:40→19:49)
[2018-08-09 06:26] LABS: Absolute Lymphocyte Count 1.02 X10^3/ul (0.83-4.51); Absolute Neutrophil Count 6.9 X10^3/uL (2.0-7.7); Hemoglobin 11.9 g/dl (12.0-15.0); Lymphocyte # 1.02 X10^3/ul (4.0); Lymphocyte % 11.6 % (19-41); Mean Corp Hgb Conc 33.1 g/gl (32-36); Mean Corpuscular Hgb 29.2 pg (27.0-32.0); Mean Corpuscular Volume 88.2 fL (81-99); Mean Platelet Vol. 12.5 fl (6.2-12.0); Monocyte# 0.83 X10^3/uL; Monocyte% 9.4 % (0-10); Neutrophil # 6.89 X10^3/uL (2.7-7.7); Platelet Count 164 K/mm3 (150-450); RBC Distribution Width CV 12.2 % (11.6-14.6); RBC Distribution Width SD 38.9 fl (35.1-43.9); Red Blood Count 4.08 M/mm3 (4.2-5.4); White Blood Count 8.8 K/mm3 (4.4-11.0)
[2018-08-09 06:28] LABS: POSITIVE COUNT NO; POSITIVE DIFFERENTIAL NO; POSITIVE MORPHOLOGY NO
[2018-08-09 06:41] LABS: Anion Gap 7 (5-15); BUN 9 mg/dL (7-18); Calcium,Total 7.4 mg/dL (8.5-10.1); Chloride 116 mmol/L (98-107); EST Glomerular Filtration Rate 130 mL/min (>60); Est Glom Filt Rate - Afr Amer 157 mL/min (>60); Estimated Creatinine Clearance 114.35 ml/min; Glucose 122 mg/dL (74-106); Potassium 3.6 mmol/L (3.5-5.1); Sodium Level 146 mmol/L (136-145)
[2018-08-09 08:03] LABS: T4 Free Direct 0.96 ng/dL (0.76-1.46)
[2018-08-09] MEDS: Famotidine 20 MG Tablet PO (09:02)
[2018-08-09] MEDS: Calcium Carbonate 500 MG Tablet 1000 MG PO (09:02)
--- NOTE | 2018-08-09 10:14 | PCM.PN.HOSP ---
Patient Problems: Active and Suspected Problems (Last Updated 03/08/17 @ 13:21 by Lesvia Silva) Numbness (Acute) Subjective: Patient seen and examined. Feels better today. He did have any numbness on her iron and tingling in her arms and examined. Labs and vitals reviewed. She does complain of some reflux. Review of systems otherwise negative. Vitals/I&O's: Vital Signs Temp Pulse Resp BP Pulse Ox 97.9 F 54 L 12 143/83 H 96 08/09/18 09:25 08/09/18 09:25 08/09/18 09:25 08/09/18 09:25 08/09/18 09:25 Oxygen Delivery Method Room Air Weight: 138 lb 7.205 oz Body Mass Index (BMI) 25.3 Intake and Output for Last 24 Hours 08/07/18 08/08/18 08/09/18 23:59 23:59 23:59 Intake Total 3541 / 3541 4259 / 4259 1093 / 1093 Balance 3541 / 3541 4259 / 4259 1093 / 1093 General: Alert, Oriented x3, Cooperative, No apparent distress HEENT: Atraumatic, PERRLA, EOMI, Normocephalic Oral: Moist Mucosa Neck: Supple, No JVD, Negative Carotid Bruits Lungs: Clear to auscultation, Normal air movement, No rhonchi, No wheeze, No rales Cardiovascular: Regular rate, Regular Rhythm, Normal S1, Normal S2, No murmurs Abdomen: Bowel Sounds Present, Soft, Non Tender, Non-Distended, No Hepato-splenomegaly Extremities: No clubbing, No cyanosis, No edema, Capillary Refill Less than 3 Seconds Skin: No rashes, No breakdown Musculoskeletal: No Tenderness to Palpation of Joints or Extremities Lymphatic: No Cervical, Supraclavicular, or Inguinal Adenopathy Neurological: Cranial nerves II-XII grossly intact, Deep Tendon Reflexes 2+/4 and Symmetrical, Muscle tone normal, - - minimal numbness in LLE Psych/Mental Status: Normal Affect, Appropriate, Alert and oriented to time, place, person, mood and affect Microbiology Past 72 Hours 08/08/18 10:13 Csf, Spinal Fluid Gram Stain - Final Laboratory Results 08/08/18 10:13: CSF Glucose 79 H, CSF Total Protein 28.0 08/08/18 10:13: CSF Cryptococcus Ag Pending, CMV DNA Qual PCR Pending, HSV I DNA PCR Pending, HSV II DNA PCR Pending 08/08/18 10:13: Miscellaneous Test Pending 08/08/18 10:13: Miscellaneous Test Pending 08/08/18 10:13: CSF Appearance CLEAR, CSF Color COLORLESS, CSF WBC 0.006 H, CSF RBC 9 H, CSF Cell Count Tube # 1, CSF Total Cell Counted 0.006, CSF Comment May follow 08/08/18 10:13: Miscellaneous Cytology Pending 08/08/18 19:10: Urine Total Protein Pending, Urine Albumin Pending, U Gfmiz-7-Lpwwzhzn Pending, U Vmnfo-6-Simlayqv Pending, U Beta Globulin Pending, U Gamma Globulin Pending, U PEP M-Augie Pending 08/08/18 19:10: Urine Color Yellow, Urine Clarity Clear, Urine pH 6.0, Ur Specific [place] 1.015, Urine Protein 15 H, Urine Glucose (UA) 1000 H, Urine Ketones Negative, Urine Occult Blood Negative, Urine Nitrite Negative, Urine Bilirubin Negative, Urine Urobilinogen 4 H, Ur Leukocyte Esterase Negative 08/09/18 06:00: WBC 8.8, RBC 4.08 L, Hgb 11.9 L, Hct 36.0 L, MCV 88.2, MCH 29.2, MCHC 33.1, RDW 12.2, RDW Differential 38.9, Plt Count 164, MPV 12.5 H, Immature Gran % (Auto) 1.000 H, Neut % (Auto) 78.0 H, Lymph % (Auto) 11.6 L, [place] % (Auto) 9.4, Eos % (Auto) 0.0, Baso % (Auto) 0.0, Absolute Neuts (auto) 6.9, Absolute Lymphs (auto) 1.02, Total Counted Not Reportable 08/09/18 06:00: Sodium 146 H, Potassium 3.6, Chloride 116 H, Carbon Dioxide 23.0, Anion Gap 7, BUN 9, Creatinine 0.60, Estim Creat Clear Calc 114.35, Est GFR (MDRD) Af Amer 157, Est GFR (MDRD) Non-Af 130, BUN/Creatinine Ratio 15.0, Glucose 122 H, Calcium 7.4 L 08/09/18 06:00: Free T4 0.96 Current Medications Acetaminophen (Tylenol) 650 mg PO Q6H PRN PRN PRN Reason: PAIN Last Admin: 08/09/18 03:40 Dose: 650 mg Calcium Carbonate (Tums) 1,000 mg PO Q6H PRN PRN PRN Reason: HEARTBURN Last Admin: 08/09/18 09:02 Dose: 1,000 mg Cholecalciferol (Vitamin D) 2,000 unit PO DAILY [facility] Last Admin: 08/09/18 09:50 Dose: 2,000 unit Dextrose (D50w Syringe) 0 gm IV X1 PRN; Protocol PRN Reason: Hypoglycemia Famotidine (Pepcid) 20 mg PO DAILY [facility] Last Admin: 08/09/18 09:02 Dose: 20 mg Glucagon () 1 mg IM .X1 PRN PRN Reason: Hypoglycemia Methylprednisolone 1,000 mg/ (Sodium Chloride) 116 mls @ 100 mls/hr IV DAILY [facility] Last Admin: 08/08/18 10:26 Dose: 100 mls/hr Ondansetron HCl (Zofran) 4 mg IV Q6H PRN PRN PRN Reason: NAUSEA Last Admin: 08/08/18 06:06 Dose: 4 mg Sodium Chloride () 5 - 15 ml IV UD PRN PRN Reason: SALINE FLUSH Last Admin: 08/08/18 06:06 Dose: 10 ml Medical Necessity - Tobacco Use Smoking Status: Never smoker Assessment/Plan All Active Problems (Last Updated 03/08/17 @ 13:21 by Lesvia Silva) Numbness (Acute) 1. Acute MS flare up in a newly diagnosed MS patient brain MRI: Multiple enhancing plaques in the cerebral hemispheres bilaterally in the left cerebellar hemisphere consistent with active demyelination. Findings consistent with clinical diagnosis of multiple sclerosis. Cervical spine MRI showed plaque at C3-4 without active demyelination at this time. thoracic spine MRI was normal IV solumedrol 1000mg daily; today is day 4; to complete 5 day course she had LP yesterday and results are pending neurology on board PT/OT on board 2. GERD: has been complaining of reflux. On famotidine. Will add on Tums (calcium carbonate) 3. Hypocalcemia: calcium is 7.4; albumin is 3.7. Will give calcium carbonate 4. Asymptomatic bradycardia: HR dips into the 40s and 50s overnight when she sleeps. Is asymptomatic. Mejia monitor. 5. Low TSH: TSH is low at 0.15; free T4 and free T3 are WNL; this doesnt fit in with hyper or hypothyroidism. WIll monitor. To follow up with her PCP on outpatient basis. DVT prophylaxis: SCDs Code Visit Inpatient E&M: 38932 Subs Hosp L2
[2018-08-09] MEDS: Ondansetron 4 MG/2 ML Vial IV ×2 (10:17→18:58)
--- NOTE | 2018-08-09 10:18 | PN_ITS ---
Patient Problems: Active and Suspected Problems (Last Updated 03/08/17 @ 13:21 by Lesvia Silva) Numbness (Acute) Subjective: Patient seen and examined. Feels better today. He did have any numbness on her iron and tingling in her arms and examined. Labs and vitals reviewed. She does complain of some reflux. Review of systems otherwise negative. Vitals/I&O's: Vital Signs Temp Pulse Resp BP Pulse Ox 97.9 F 54 L 12 143/83 H 96 08/09/18 09:25 08/09/18 09:25 08/09/18 09:25 08/09/18 09:25 08/09/18 09:25 Oxygen Delivery Method Room Air Weight: 138 lb 7.205 oz Body Mass Index (BMI) 25.3 Intake and Output for Last 24 Hours 08/07/18 08/08/18 08/09/18 23:59 23:59 23:59 Intake Total 3541 / 3541 4259 / 4259 1093 / 1093 Balance 3541 / 3541 4259 / 4259 1093 / 1093 General: Alert, Oriented x3, Cooperative, No apparent distress HEENT: Atraumatic, PERRLA, EOMI, Normocephalic Oral: Moist Mucosa Neck: Supple, No JVD, Negative Carotid Bruits Lungs: Clear to auscultation, Normal air movement, No rhonchi, No wheeze, No rales Cardiovascular: Regular rate, Regular Rhythm, Normal S1, Normal S2, No murmurs Abdomen: Bowel Sounds Present, Soft, Non Tender, Non-Distended, No Hepato- splenomegaly Extremities: No clubbing, No cyanosis, No edema, Capillary Refill Less than 3 Seconds Skin: No rashes, No breakdown Musculoskeletal: No Tenderness to Palpation of Joints or Extremities Lymphatic: No Cervical, Supraclavicular, or Inguinal Adenopathy Neurological: Cranial nerves II-XII grossly intact, Deep Tendon Reflexes 2+/4 and Symmetrical, Muscle tone normal, - - minimal numbness in LLE Psych/Mental Status: Normal Affect, Appropriate, Alert and oriented to time, place, person, mood and affect Microbiology Past 72 Hours 08/08/18 10:13 Csf, Spinal Fluid Gram Stain - Final Laboratory Results 08/08/18 10:13: CSF Glucose 79 H, CSF Total Protein 28.0 08/08/18 10:13: CSF Cryptococcus Ag Pending, CMV DNA Qual PCR Pending, HSV I DNA PCR Pending, HSV II DNA PCR Pending 08/08/18 10:13: Miscellaneous Test Pending 08/08/18 10:13: Miscellaneous Test Pending 08/08/18 10:13: CSF Appearance CLEAR, CSF Color COLORLESS, CSF WBC 0.006 H, CSF RBC 9 H, CSF Cell Count Tube # 1, CSF Total Cell Counted 0.006, CSF Comment May follow 08/08/18 10:13: Miscellaneous Cytology Pending 08/08/18 19:10: Urine Total Protein Pending, Urine Albumin Pending, U Zefwf-0-Zzxargqt Pending, U Szjmv-5-Mjtmdxbh Pending, U Beta Globulin Pending, U Gamma Globulin Pending, U PEP M-Augie Pending 08/08/18 19:10: Urine Color Yellow, Urine Clarity Clear, Urine pH 6.0, Ur Specific [place] 1.015, Urine Protein 15 H, Urine Glucose (UA) 1000 H, Urine Ketones Negative, Urine Occult Blood Negative, Urine Nitrite Negative, Urine Bilirubin Negative, Urine Urobilinogen 4 H, Ur Leukocyte Esterase Negative 08/09/18 06:00: WBC 8.8, RBC 4.08 L, Hgb 11.9 L, Hct 36.0 L, MCV 88.2, MCH 29.2, MCHC 33.1, RDW 12.2, RDW Differential 38.9, Plt Count 164, MPV 12.5 H, Immature Gran % (Auto) 1.000 H, Neut % (Auto) 78.0 H, Lymph % (Auto) 11.6 L, [place] % (Auto) 9.4, Eos % (Auto) 0.0, Baso % (Auto) 0.0, Absolute Neuts (auto) 6.9, Absolute Lymphs (auto) 1.02, Total Counted Not Reportable 08/09/18 06:00: Sodium 146 H, Potassium 3.6, Chloride 116 H, Carbon Dioxide 23.0, Anion Gap 7, BUN 9, Creatinine 0.60, Estim Creat Clear Calc 114.35, Est GFR (MDRD) Af Amer 157, Est GFR (MDRD) Non-Af 130, BUN/Creatinine Ratio 15.0, Glucose 122 H, Calcium 7.4 L 08/09/18 06:00: Free T4 0.96 Current Medications Acetaminophen (Tylenol) 650 mg PO Q6H PRN PRN PRN Reason: PAIN Last Admin: 08/09/18 03:40 Dose: 650 mg Calcium Carbonate (Tums) 1,000 mg PO Q6H PRN PRN PRN Reason: HEARTBURN Last Admin: 08/09/18 09:02 Dose: 1,000 mg Cholecalciferol (Vitamin D) 2,000 unit PO DAILY [facility] Last Admin: 08/09/18 09:50 Dose: 2,000 unit Dextrose (D50w Syringe) 0 gm IV X1 PRN; Protocol PRN Reason: Hypoglycemia Famotidine (Pepcid) 20 mg PO DAILY [facility] Last Admin: 08/09/18 09:02 Dose: 20 mg Glucagon () 1 mg IM .X1 PRN PRN Reason: Hypoglycemia Methylprednisolone 1,000 mg/ (Sodium Chloride) 116 mls @ 100 mls/hr IV DAILY [facility] Last Admin: 08/08/18 10:26 Dose: 100 mls/hr Ondansetron HCl (Zofran) 4 mg IV Q6H PRN PRN PRN Reason: NAUSEA Last Admin: 08/08/18 06:06 Dose: 4 mg Sodium Chloride () 5 - 15 ml IV UD PRN PRN Reason: SALINE FLUSH Last Admin: 08/08/18 06:06 Dose: 10 ml Medical Necessity - Tobacco Use Smoking Status: Never smoker Assessment/Plan All Active Problems (Last Updated 03/08/17 @ 13:21 by Lesvia Silva) Numbness (Acute) 1. Acute MS flare up in a newly diagnosed MS patient * brain MRI: Multiple enhancing plaques in the cerebral hemispheres bilaterally in the left cerebellar hemisphere consistent with active demyelination. Findings consistent with clinical diagnosis of multiple sclerosis. * Cervical spine MRI showed plaque at C3-4 without active demyelination at this time. * thoracic spine MRI was normal * IV solumedrol 1000mg daily; today is day 4; to complete 5 day course * she had LP yesterday and results are pending * neurology on board * PT/OT on board 2. GERD: has been complaining of reflux. On famotidine. Will add on Tums (calcium carbonate) 3. Hypocalcemia: calcium is 7.4; albumin is 3.7. Will give calcium carbonate 4. Asymptomatic bradycardia: HR dips into the 40s and 50s overnight when she sleeps. Is asymptomatic. Mejia monitor. 5. Low TSH: * TSH is low at 0.15; free T4 and free T3 are WNL; * this doesnt fit in with hyper or hypothyroidism. WIll monitor. * To follow up with her PCP on outpatient basis. DVT prophylaxis: SCDs Code Visit Inpatient E&M: 72049 Subs Hosp L2
[2018-08-09 10:49] LABS: Free T3 1.4 pg/mL (2.18-3.98)
--- NOTE | 2018-08-09 10:49 | PCM.PN.NEU ---
Patient Problems: Active and Suspected Problems (Last Updated 03/08/17 @ 13:21 by Lesvia Silva) Numbness (Acute) Subjective: No Issues overnight. Per patient she feels her numbness is improving. Denies any ROMANO. - Physical Exam General: Alert HEENT: Normocephalic Neck: Supple Lungs: Normal air movement Cardiovascular: Normal S1, Normal S2 Abdomen: Bowel Sounds Present Extremities: No cyanosis Neurological: - - Conscious, alert, CN?2-12 grossly intact, power 5/5 all 4 extremities, subjective sensory loss to light touch temperature left feet/left leg and thighs and left lower abdomen (per patient is improving), no cerebellar signs, reflexes +2 B/L B/S/T/K/A, plantars B/L flexor, gait deferred, no NR, fundus not visualized. Psych/Mental Status: Normal Affect Vital Signs Temp Pulse Resp BP Pulse Ox 97.9 F 54 L 12 143/83 H 96 08/09/18 09:25 08/09/18 09:25 08/09/18 09:25 08/09/18 09:25 08/09/18 09:25 Oxygen Delivery Method Room Air Weight: 62.8 kg Body Mass Index (BMI) 25.3 Intake and Output for Last 24 Hours 08/07/18 08/08/18 08/09/18 23:59 23:59 23:59 Intake Total 3541 / 3541 4259 / 4259 1093 / 1093 Balance 3541 / 3541 4259 / 4259 1093 / 1093 Microbiology Past 72 Hours 08/08/18 10:13 Gram Stain - Final Csf, Spinal Fluid CSF Culture - Preliminary No growth in 24 hours. Final to follow. Laboratory Tests Past 24 Hrs 08/08/18 08/08/18 08/08/18 10:13 10:13 19:10 WBC RBC Hgb Hct MCV MCH MCHC RDW RDW Differential Plt Count MPV Immature Gran % (Auto) Neut % (Auto) Lymph % (Auto) [place] % (Auto) Eos % (Auto) Baso % (Auto) Absolute Neuts (auto) Absolute Lymphs (auto) Total Counted Sodium Potassium Chloride Carbon Dioxide Anion Gap BUN Creatinine Estim Creat Clear Calc Est GFR (MDRD) Af Amer Est GFR (MDRD) Non-Af BUN/Creatinine Ratio Glucose Calcium Free T4 Free T3 pg/dL Urine Color Urine Clarity Urine pH Ur Specific [place] Urine Protein Urine Glucose (UA) Urine Ketones Urine Occult Blood Urine Nitrite Urine Bilirubin Urine Urobilinogen Ur Leukocyte Esterase Urine Total Protein Pending Urine Albumin Pending U Yozaf-3-Yrzaxjra Pending U Kipie-1-Nivvlant Pending U Beta Globulin Pending U Gamma Globulin Pending U PEP M-Augie Pending CSF Appearance CLEAR CSF Color COLORLESS CSF WBC 0.006 H CSF RBC 9 H CSF Cell Count Tube # 1 CSF Total Cell Counted 0.006 CSF Comment May follow CSF Glucose 79 H CSF Total Protein 28.0 08/08/18 08/09/18 08/09/18 19:10 06:00 06:00 WBC 8.8 RBC 4.08 L Hgb 11.9 L Hct 36.0 L MCV 88.2 MCH 29.2 MCHC 33.1 RDW 12.2 RDW Differential 38.9 Plt Count 164 MPV 12.5 H Immature Gran % (Auto) 1.000 H Neut % (Auto) 78.0 H Lymph % (Auto) 11.6 L [place] % (Auto) 9.4 Eos % (Auto) 0.0 Baso % (Auto) 0.0 Absolute Neuts (auto) 6.9 Absolute Lymphs (auto) 1.02 Total Counted Not Reportable Sodium 146 H Potassium 3.6 Chloride 116 H Carbon Dioxide 23.0 Anion Gap 7 BUN 9 Creatinine 0.60 Estim Creat Clear Calc 114.35 Est GFR (MDRD) Af Amer 157 Est GFR (MDRD) Non-Af 130 BUN/Creatinine Ratio 15.0 Glucose 122 H Calcium 7.4 L Free T4 Free T3 pg/dL Urine Color Yellow Urine Clarity Clear Urine pH 6.0 Ur Specific [place] 1.015 Urine Protein 15 H Urine Glucose (UA) 1000 H Urine Ketones Negative Urine Occult Blood Negative Urine Nitrite Negative Urine Bilirubin Negative Urine Urobilinogen 4 H Ur Leukocyte Esterase Negative Urine Total Protein Urine Albumin U Kkqgs-3-Omtwomnt U Qeapx-4-Wpgaklfp U Beta Globulin U Gamma Globulin U PEP M-Augie CSF Appearance CSF Color CSF WBC CSF RBC CSF Cell Count Tube # CSF Total Cell Counted CSF Comment CSF Glucose CSF Total Protein 08/09/18 08/09/18 06:00 06:00 WBC RBC Hgb Hct MCV MCH MCHC RDW RDW Differential Plt Count MPV Immature Gran % (Auto) Neut % (Auto) Lymph % (Auto) [place] % (Auto) Eos % (Auto) Baso % (Auto) Absolute Neuts (auto) Absolute Lymphs (auto) Total Counted Sodium Potassium Chloride Carbon Dioxide Anion Gap BUN Creatinine Estim Creat Clear Calc Est GFR (MDRD) Af Amer Est GFR (MDRD) Non-Af BUN/Creatinine Ratio Glucose Calcium Free T4 0.96 Free T3 pg/dL Pending Urine Color Urine Clarity Urine pH Ur Specific [place] Urine Protein Urine Glucose (UA) Urine Ketones Urine Occult Blood Urine Nitrite Urine Bilirubin Urine Urobilinogen Ur Leukocyte Esterase Urine Total Protein Urine Albumin U Pzuwz-9-Lehzohwx U Dkakm-1-Qlyxfzcr U Beta Globulin U Gamma Globulin U PEP M-Augie CSF Appearance CSF Color CSF WBC CSF RBC CSF Cell Count Tube # CSF Total Cell Counted CSF Comment CSF Glucose CSF Total Protein Medical Necessity - Tobacco Use Smoking Status: Never smoker Assessment/Plan All Active Problems (Last Updated 03/08/17 @ 13:21 by Lesvia Silva) Numbness (Acute) The patient is a 22 year old F with no significant PMH admitted with numbness and paresthesias. Per patient she started having left foot numbness and paresthesias on Monday about 2 days ago 08/03/2018, later patient also had a headache on Monday for which she took Motrin, per patient her paresthesias worsened and the numbness extended to the arm on the left side and the right foot and since 08/06/2018 patient feels that her abdomen is also numb. She denies any neck pain, radicular symptoms, urinary incontinence, burning pain in the feet. She complains of chronic low back pain. Per patient she does get headaches about 2-3 times a week, has occasional photophobia/phonophobia, occasional visual blurring, denies nausea. Per patient she just takes sxwl-jkw-yrljphe medication for her headaches. At present she denies any headache, dizziness, visual disturbances, speech disturbances, focal motor weakness. Per patient she has a strong family history of multiple sclerosis and her father and aunt. MRI brain reported to show multiple enhancing plaques within the cerebral hemispheres bilaterally and cerebellum consistent with active demyelination and MRI C-spine reported to show plaque at C3-C4 without active demyelination. Minimal disc bulging at C5-C6 and C6-C7 without any spinal stenosis Impression New onset demyelinating disease-likely MS Plan ?Solu-Medrol 1 g IV once daily for 5 days. ?MRI thoracic spine with and without contrast- no demyelinating lesion. ?LP?cell count-6, protein-28, glucose-78, Await CSF oligoclonal bands, IgG index, myelin basic protein, BRIANA level. -Vitamin D-22.7 (L), vitamin B12-398, TSH-0.15 (L) -Vitamin D 6000 units PO once daily for 8 weeks followed by 1000 units PO BID. ?Await ADRIÁN/ANCA/SSA/SSB antibody/RF, serum BRIANA level and Lyme's antibody testing, NMO ab and MOG antibody, HBsAg, Hepatitis C, immunoglobulins level, SPEP and UPEP with GABE. ?Plan Ocrevus infusion as outpatient ?Labs reviewed ?Fall precautions ?GI/DVT prophylaxis ?Further medical management per hospitalist recommendation ?Follow-up with neurology as outpatient in 4 to 6 weeks ?Please call with questions if any ?Thank you for allowing us to participate in patient's current management
--- NOTE | 2018-08-09 10:52 | PN.NEURO_ITS ---
Patient Problems: Active and Suspected Problems (Last Updated 03/08/17 @ 13:21 by Lesvia Silva) Numbness (Acute) Subjective: No Issues overnight. Per patient she feels her numbness is improving. Denies any ROMANO. - Physical Exam General: Alert HEENT: Normocephalic Neck: Supple Lungs: Normal air movement Cardiovascular: Normal S1, Normal S2 Abdomen: Bowel Sounds Present Extremities: No cyanosis Neurological: - - Conscious, alert, CN?2-12 grossly intact, power 5/5 all 4 extremities, subjective sensory loss to light touch temperature left feet/left leg and thighs and left lower abdomen (per patient is improving), no cerebellar signs, reflexes +2 B/L B/S/T/K/A, plantars B/L flexor, gait deferred, no NR, fundus not visualized. Psych/Mental Status: Normal Affect Vital Signs Temp Pulse Resp BP Pulse Ox 97.9 F 54 L 12 143/83 H 96 08/09/18 09:25 08/09/18 09:25 08/09/18 09:25 08/09/18 09:25 08/09/18 09:25 Oxygen Delivery Method Room Air Weight: 62.8 kg Body Mass Index (BMI) 25.3 Intake and Output for Last 24 Hours 08/07/18 08/08/18 08/09/18 23:59 23:59 23:59 Intake Total 3541 / 3541 4259 / 4259 1093 / 1093 Balance 3541 / 3541 4259 / 4259 1093 / 1093 Microbiology Past 72 Hours 08/08/18 10:13 Gram Stain - Final Csf, Spinal Fluid CSF Culture - Preliminary No growth in 24 hours. Final to follow. Laboratory Tests Past 24 Hrs 08/08/18 08/08/18 08/08/18 10:13 10:13 19:10 WBC RBC Hgb Hct MCV MCH MCHC RDW RDW Differential Plt Count MPV Immature Gran % (Auto) Neut % (Auto) Lymph % (Auto) [place] % (Auto) Eos % (Auto) Baso % (Auto) Absolute Neuts (auto) Absolute Lymphs (auto) Total Counted Sodium Potassium Chloride Carbon Dioxide Anion Gap BUN Creatinine Estim Creat Clear Calc Est GFR (MDRD) Af Amer Est GFR (MDRD) Non-Af BUN/Creatinine Ratio Glucose Calcium Free T4 Free T3 pg/dL Urine Color Urine Clarity Urine pH Ur Specific [place] Urine Protein Urine Glucose (UA) Urine Ketones Urine Occult Blood Urine Nitrite Urine Bilirubin Urine Urobilinogen Ur Leukocyte Esterase Urine Total Protein Pending Urine Albumin Pending U Owvuh-7-Kouufyhq Pending U Qqqeo-5-Hexawnat Pending U Beta Globulin Pending U Gamma Globulin Pending U PEP M-Augie Pending CSF Appearance CLEAR CSF Color COLORLESS CSF WBC 0.006 H CSF RBC 9 H CSF Cell Count Tube # 1 CSF Total Cell Counted 0.006 CSF Comment May follow CSF Glucose 79 H CSF Total Protein 28.0 08/08/18 08/09/18 08/09/18 19:10 06:00 06:00 WBC 8.8 RBC 4.08 L Hgb 11.9 L Hct 36.0 L MCV 88.2 MCH 29.2 MCHC 33.1 RDW 12.2 RDW Differential 38.9 Plt Count 164 MPV 12.5 H Immature Gran % (Auto) 1.000 H Neut % (Auto) 78.0 H Lymph % (Auto) 11.6 L [place] % (Auto) 9.4 Eos % (Auto) 0.0 Baso % (Auto) 0.0 Absolute Neuts (auto) 6.9 Absolute Lymphs (auto) 1.02 Total Counted Not Reportable Sodium 146 H Potassium 3.6 Chloride 116 H Carbon Dioxide 23.0 Anion Gap 7 BUN 9 Creatinine 0.60 Estim Creat Clear Calc 114.35 Est GFR (MDRD) Af Amer 157 Est GFR (MDRD) Non-Af 130 BUN/Creatinine Ratio 15.0 Glucose 122 H Calcium 7.4 L Free T4 Free T3 pg/dL Urine Color Yellow Urine Clarity Clear Urine pH 6.0 Ur Specific [place] 1.015 Urine Protein 15 H Urine Glucose (UA) 1000 H Urine Ketones Negative Urine Occult Blood Negative Urine Nitrite Negative Urine Bilirubin Negative Urine Urobilinogen 4 H Ur Leukocyte Esterase Negative Urine Total Protein Urine Albumin U Kyxym-9-Tyjtilat U Wjics-0-Tlldzxyt U Beta Globulin U Gamma Globulin U PEP M-Augie CSF Appearance CSF Color CSF WBC CSF RBC CSF Cell Count Tube # CSF Total Cell Counted CSF Comment CSF Glucose CSF Total Protein 08/09/18 08/09/18 06:00 06:00 WBC RBC Hgb Hct MCV MCH MCHC RDW RDW Differential Plt Count MPV Immature Gran % (Auto) Neut % (Auto) Lymph % (Auto) [place] % (Auto) Eos % (Auto) Baso % (Auto) Absolute Neuts (auto) Absolute Lymphs (auto) Total Counted Sodium Potassium Chloride Carbon Dioxide Anion Gap BUN Creatinine Estim Creat Clear Calc Est GFR (MDRD) Af Amer Est GFR (MDRD) Non-Af BUN/Creatinine Ratio Glucose Calcium Free T4 0.96 Free T3 pg/dL Pending Urine Color Urine Clarity Urine pH Ur Specific [place] Urine Protein Urine Glucose (UA) Urine Ketones Urine Occult Blood Urine Nitrite Urine Bilirubin Urine Urobilinogen Ur Leukocyte Esterase Urine Total Protein Urine Albumin U Bcpfy-0-Nrmdpagv U Vyhrw-0-Herquebg U Beta Globulin U Gamma Globulin U PEP M-Augie CSF Appearance CSF Color CSF WBC CSF RBC CSF Cell Count Tube # CSF Total Cell Counted CSF Comment CSF Glucose CSF Total Protein Medical Necessity - Tobacco Use Smoking Status: Never smoker Assessment/Plan All Active Problems (Last Updated 03/08/17 @ 13:21 by Lesvia Silva) Numbness (Acute) The patient is a 22 year old F with no significant PMH admitted with numbness and paresthesias. Per patient she started having left foot numbness and paresthesias on Monday about 2 days ago 08/03/2018, later patient also had a headache on Monday for which she took Motrin, per patient her paresthesias worsened and the numbness extended to the arm on the left side and the right foot and since 08/06/2018 patient feels that her abdomen is also numb. She denies any neck pain, radicular symptoms, urinary incontinence, burning pain in the feet. She complains of chronic low back pain. Per patient she does get headaches about 2-3 times a week, has occasional photophobia/phonophobia, occasional visual blurring, denies nausea. Per patient she just takes qqdj-ful-ffgaymr medication for her headaches. At present she denies any headache, dizziness, visual disturbances, speech disturbances, focal motor weakness. Per patient she has a strong family history of multiple sclerosis and her father and aunt. MRI brain reported to show multiple enhancing plaques within the cerebral hemispheres bilaterally and cerebellum consistent with active demyelination and MRI C-spine reported to show plaque at C3-C4 without active demyelination. Minimal disc bulging at C5-C6 and C6-C7 without any spinal stenosis Impression New onset demyelinating disease-likely MS Plan ?Solu-Medrol 1 g IV once daily for 5 days. ?MRI thoracic spine with and without contrast- no demyelinating lesion. ?LP?cell count-6, protein-28, glucose-78, Await CSF oligoclonal bands, IgG index, myelin basic protein, BRIANA level. -Vitamin D-22.7 (L), vitamin B12-398, TSH-0.15 (L) -Vitamin D 6000 units PO once daily for 8 weeks followed by 1000 units PO BID. ?Await ADRIÁN/ANCA/SSA/SSB antibody/RF, serum BRIANA level and Lyme's antibody testing, NMO ab and MOG antibody, HBsAg, Hepatitis C, immunoglobulins level, SPEP and UPEP with GABE. ?Plan Ocrevus infusion as outpatient ?Labs reviewed ?Fall precautions ?GI/DVT prophylaxis ?Further medical management per hospitalist recommendation ?Follow-up with neurology as outpatient in 4 to 6 weeks ?Please call with questions if any ?Thank you for allowing us to participate in patient's current management
[2018-08-09] MEDS: Bisacodyl 5 MG Tablet PO (13:20)
--- NOTE | 2018-08-09 13:38 | CASEMGMT ---
KORINA KOENIG assessment: Face to Face with patient for initial transition planning/care coordination assessment. KORINA KOENIG introduced self and role at [facility], pt voices understanding and consents to assessment at this time. Pt is lying in bed in no distress at this time. Pt is A/O x4 at this time and answers all questions appropriately at this time. Pt's mother is at bedside during assessment. Care providers, pharmacy, and demographics verified at this time. PCP: Yolette Mancuso Specialists: None currently but was planning to f/u with Dr. Lamb. [facility] Insurance: [facility] Prescription Benefit: [facility] Living Will/HPOA: Pt states does not currently have LW/HPOA and declines info at this time. LNOK: Kiersten Ornelas, mother Living Arrangements: Pt states lives with parents in home and states no concerns at home at this time. Pt is independent with ADL's at this time. Transportation: Pt states drives self and states no transportation concerns at this time. DME/HHC: Pt states no current DME or need for any at this time. Pt states no hx of HHC or SNF in the past. Pt states no concerns with going home at time of discharge. 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 Pt states does not smoke or drink ETOH. Pt states no further questions/concerns/needs at this time. CM to follow for any further discharge planning/needs. Advised pt to ask for CM if any further questions/concerns/needs arise, voices understanding. Pt Goal: Home Plan[place] KORINA KOENIG
[2018-08-09 14:07] LABS: PROEL- A/G Ratio 1.3 (0.7-1.7); PROEL- Albumin 3.2 g/dL (2.9-4.4); PROEL- Alpha-1 Globulin 0.2 g/dL (0.0-0.4); PROEL- Alpha-2 Globulin 0.7 g/dL (0.4-1.0); PROEL- Beta Globulin 0.7 g/dL (0.7-1.3); PROEL- Gamma Globulin 0.8 g/dL (0.4-1.8); PROEL- Globulin, Total 2.4 g/dL (2.2-3.9); PROEL- TOTAL PROTEIN 5.6 g/dL (6.0-8.5)
[2018-08-09 14:32] LABS: Pathologist Review Reviewed
[2018-08-09 15:17] LABS: ANTINUCLEAR ANTIBODIES DIRECT Negative (Negative)
[2018-08-09] MEDS: 0.9% NaCl Peripheral Flush Adult/Peds IV (18:58)
[2018-08-10] VITALS (11 sets, daily range): BP systolic 117–143; BP diastolic 63–86; PULSE 56–80; RESP 16; TEMP 36.5–36.9; O2SAT 94–98; BMI 25.3
[2018-08-10] MEDS: Acetaminophen 325 MG Tablet 650 MG PO ×2 (03:38→10:13)
[2018-08-10] MEDS: 0.9% NaCl Peripheral Flush Adult/Peds IV ×5 (08:45→18:24)
[2018-08-10] MEDS: Ketorolac 30 MG/ML Syringe IV (08:45)
[2018-08-10] MEDS: Ondansetron 4 MG/2 ML Vial IV ×3 (08:45→16:24)
[2018-08-10] MEDS: Famotidine 20 MG Tablet PO (10:03)
--- NOTE | 2018-08-10 11:39 | PCM.PN.NEU ---
Patient Problems: Active and Suspected Problems (Last Updated 03/08/17 @ 13:21 by Lesvia Silva) Numbness (Acute) Subjective: Per patient she has been having ROMANO generalized since last evening, with photophobia, and per patient she feels ROMANO is worse when she sits up. - Physical Exam General: Alert HEENT: Normocephalic Neck: Supple Lungs: Normal air movement Cardiovascular: Normal S1, Normal S2 Abdomen: Bowel Sounds Present Extremities: No cyanosis Neurological: - - Conscious, alert, CN?2-12 grossly intact, power 5/5 all 4 extremities, subjective sensory loss to light touch temperature left feet/left leg and thighs and left lower abdomen (per patient is improving), no cerebellar signs, reflexes +2 B/L B/S/T/K/A, plantars B/L flexor, gait deferred, no NR, fundus not visualized. Psych/Mental Status: Normal Affect Vital Signs Temp Pulse Resp BP Pulse Ox 97.7 F L 58 L 16 143/80 H 96 08/10/18 08:57 08/10/18 08:57 08/10/18 08:57 08/10/18 08:57 08/10/18 08:57 Oxygen Delivery Method Room Air Weight: 62.8 kg Body Mass Index (BMI) 25.3 Intake and Output for Last 24 Hours 08/08/18 08/09/18 08/10/18 23:59 23:59 23:59 Intake Total 4259 / 4259 2575 / 2575 700 / 700 Balance 4259 / 4259 2575 / 2575 700 / 700 Microbiology Past 72 Hours 08/08/18 19:10 Urine Culture - Final Urine, Clean Catch Mixed Gram Positive Organisms 08/08/18 10:13 Gram Stain - Final Csf, Spinal Fluid CSF Culture - Preliminary No growth in 24 hours. Final to follow. Laboratory Tests Past 24 Hrs 08/08/18 08/08/18 08/08/18 05:40 05:40 10:13 Total Protein (PEP) 5.6 L Albumin (PEP) 3.2 Globulin (PEP) 2.4 Albumin/Globulin (PEP) 1.3 Rshbk-3-Jphcyvfgk 0.2 Cxftr-8-Cqhirybqz 0.7 Beta Globulins 0.7 Gamma Globulins 0.8 M-Augie PEP Note Comment: PEP Interpretation Comment CSF Comment Reviewed ADRIÁN Screen Negative STEPHANE-1 Antibody Not Reportable SS-A/Ro IgG Antibody Not Reportable SS-B/La IgG Antibody Not Reportable Sm (Justin) Antibody Not Reportable [employer]ER Antibody Not Reportable Scl-70 Scleroderma Ab Not Reportable Double Strand DNA Ab Not Reportable Centromere B Antibody Not Reportable Miscellaneous Cytology 08/08/18 10:13 Total Protein (PEP) Albumin (PEP) Globulin (PEP) Albumin/Globulin (PEP) Hznap-6-Kypwmajoh Fxbul-9-Zlvlxvmbp Beta Globulins Gamma Globulins M-Augie PEP Note PEP Interpretation CSF Comment ADRIÁN Screen STEPHANE-1 Antibody SS-A/Ro IgG Antibody SS-B/La IgG Antibody Sm (Justin) Antibody 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 Per patient she started having left foot numbness and paresthesias on Monday about 2 days ago 08/03/2018, later patient also had a headache on Monday for which she took Motrin, per patient her paresthesias worsened and the numbness extended to the arm on the left side and the right foot and since 08/06/2018 patient feels that her abdomen is also numb. She denies any neck pain, radicular symptoms, urinary incontinence, burning pain in the feet. She complains of chronic low back pain. Per patient she does get headaches about 2-3 times a week, has occasional photophobia/phonophobia, occasional visual blurring, denies nausea. Per patient she just takes tvnu-lls-tecqcoa medication for her headaches. At present she denies any headache, dizziness, visual disturbances, speech disturbances, focal motor weakness. Per patient she has a strong family history of multiple sclerosis and her father and aunt. MRI brain reported to show multiple enhancing plaques within the cerebral hemispheres bilaterally and cerebellum consistent with active demyelination and MRI C-spine reported to show plaque at C3-C4 without active demyelination. Minimal disc bulging at C5-C6 and C6-C7 without any spinal stenosis Impression New onset demyelinating disease-likely MS Plan -ROMANO since last evening. consider Blood patch for possible post LP ROMANO. ?Solu-Medrol 1 g IV once daily for 5 days. ?MRI thoracic spine with and without contrast- no demyelinating lesion. ?LP?cell count-6, protein-28, glucose-78, Await CSF oligoclonal bands, IgG index, myelin basic protein, BRIANA level. -Vitamin D-22.7 (L), vitamin B12-398, TSH-0.15 (L) -Vitamin D 6000 units PO once daily for 8 weeks followed by 1000 units PO BID. ?Await ADRIÁN/ANCA/SSA/SSB antibody/RF, serum BRIANA level and Lyme's antibody testing, NMO ab and MOG antibody, HBsAg, Hepatitis C, immunoglobulins level, SPEP and UPEP with GABE. ?Plan Ocrevus infusion as outpatient ?Labs reviewed ?Fall precautions ?GI/DVT prophylaxis ?Further medical management per hospitalist recommendation ?Follow-up with neurology as outpatient in 4 to 6 weeks ?Please call with questions if any ?Thank you for allowing us to participate in patient's current management
--- NOTE | 2018-08-10 11:43 | PN.NEURO_ITS ---
Patient Problems: Active and Suspected Problems (Last Updated 03/08/17 @ 13:21 by Lesvia Silva) Numbness (Acute) Subjective: Per patient she has been having ROMANO generalized since last evening, with photophobia, and per patient she feels ROMANO is worse when she sits up. - Physical Exam General: Alert HEENT: Normocephalic Neck: Supple Lungs: Normal air movement Cardiovascular: Normal S1, Normal S2 Abdomen: Bowel Sounds Present Extremities: No cyanosis Neurological: - - Conscious, alert, CN?2-12 grossly intact, power 5/5 all 4 extremities, subjective sensory loss to light touch temperature left feet/left leg and thighs and left lower abdomen (per patient is improving), no cerebellar signs, reflexes +2 B/L B/S/T/K/A, plantars B/L flexor, gait deferred, no NR, fundus not visualized. Psych/Mental Status: Normal Affect Vital Signs Temp Pulse Resp BP Pulse Ox 97.7 F L 58 L 16 143/80 H 96 08/10/18 08:57 08/10/18 08:57 08/10/18 08:57 08/10/18 08:57 08/10/18 08:57 Oxygen Delivery Method Room Air Weight: 62.8 kg Body Mass Index (BMI) 25.3 Intake and Output for Last 24 Hours 08/08/18 08/09/18 08/10/18 23:59 23:59 23:59 Intake Total 4259 / 4259 2575 / 2575 700 / 700 Balance 4259 / 4259 2575 / 2575 700 / 700 Microbiology Past 72 Hours 08/08/18 19:10 Urine Culture - Final Urine, Clean Catch Mixed Gram Positive Organisms 08/08/18 10:13 Gram Stain - Final Csf, Spinal Fluid CSF Culture - Preliminary No growth in 24 hours. Final to follow. Laboratory Tests Past 24 Hrs 08/08/18 08/08/18 08/08/18 05:40 05:40 10:13 Total Protein (PEP) 5.6 L Albumin (PEP) 3.2 Globulin (PEP) 2.4 Albumin/Globulin (PEP) 1.3 Xpbjg-9-Nacbouczv 0.2 Jfgrz-7-Xuyhdtemj 0.7 Beta Globulins 0.7 Gamma Globulins 0.8 M-Augie PEP Note Comment: PEP Interpretation Comment CSF Comment Reviewed ADRIÁN Screen Negative STEPHANE-1 Antibody Not Reportable SS-A/Ro IgG Antibody Not Reportable SS-B/La IgG Antibody Not Reportable Sm (Justin) Antibody Not Reportable DENTAL ASSOCIATE Antibody Not Reportable Scl-70 Scleroderma Ab Not Reportable Double Strand DNA Ab Not Reportable Centromere B Antibody Not Reportable Miscellaneous Cytology 08/08/18 10:13 Total Protein (PEP) Albumin (PEP) Globulin (PEP) Albumin/Globulin (PEP) Buuvv-8-Akxgsxgnd Pjjfe-6-Bcktvmjhp Beta Globulins Gamma Globulins M-Augie PEP Note PEP Interpretation CSF Comment ADRIÁN Screen STEPHANE-1 Antibody SS-A/Ro IgG Antibody SS-B/La IgG Antibody Sm (Justin) Antibody DENTAL ASSOCIATE Antibody Scl-70 Scleroderma Ab Double Strand DNA Ab Centromere B Antibody Miscellaneous Cytology SEE PATHOLOGY REPORT Medical Necessity - Tobacco Use Smoking Status: Never smoker Assessment/Plan All Active Problems (Last Updated 03/08/17 @ 13:21 by Lesvia Silva) Numbness (Acute) The patient is a 22 year old F with no significant PMH admitted with numbness and paresthesias. Per patient she started having left foot numbness and paresthesias on Monday about 2 days ago 08/03/2018, later patient also had a headache on Monday for which she took Motrin, per patient her paresthesias worsened and the numbness extended to the arm on the left side and the right foot and since 08/06/2018 patient feels that her abdomen is also numb. She denies any neck pain, radicular symptoms, urinary incontinence, burning pain in the feet. She complains of chronic low back pain. Per patient she does get headaches about 2-3 times a week, has occasional photophobia/phonophobia, occasional visual blurring, denies nausea. Per patient she just takes zqam-ggv-mcywkeb medication for her headaches. At present she denies any headache, dizziness, visual disturbances, speech disturbances, focal motor weakness. Per patient she has a strong family history of multiple sclerosis and her father and aunt. MRI brain reported to show multiple enhancing plaques within the cerebral hemispheres bilaterally and cerebellum consistent with active demyelination and MRI C-spine reported to show plaque at C3-C4 without active demyelination. Minimal disc bulging at C5-C6 and C6-C7 without any spinal stenosis Impression New onset demyelinating disease-likely MS Plan -ROMANO since last evening. consider Blood patch for possible post LP ROMANO. ?Solu-Medrol 1 g IV once daily for 5 days. ?MRI thoracic spine with and without contrast- no demyelinating lesion. ?LP?cell count-6, protein-28, glucose-78, Await CSF oligoclonal bands, IgG index, myelin basic protein, BRIANA level. -Vitamin D-22.7 (L), vitamin B12-398, TSH-0.15 (L) -Vitamin D 6000 units PO once daily for 8 weeks followed by 1000 units PO BID. ?Await ADRIÁN/ANCA/SSA/SSB antibody/RF, serum BRIANA level and Lyme's antibody testing, NMO ab and MOG antibody, HBsAg, Hepatitis C, immunoglobulins level, SPEP and UPEP with GABE. ?Plan Ocrevus infusion as outpatient ?Labs reviewed ?Fall precautions ?GI/DVT prophylaxis ?Further medical management per hospitalist recommendation ?Follow-up with neurology as outpatient in 4 to 6 weeks ?Please call with questions if any ?Thank you for allowing us to participate in patient's current management
--- NOTE | 2018-08-10 12:18 | PCM.PN.HOSP ---
Patient Problems: Active and Suspected Problems (Last Updated 03/08/17 @ 13:21 by Lesvia Silva) Numbness (Acute) Subjective: Patient seen and examined. She complains of a severe headache which is worsened with sitting up and gets better with lying down. She has associated nausea. Numbness and tingling has improved significantly review of systems otherwise negative. Vitals reviewed. Vitals/I&O's: Vital Signs Temp Pulse Resp BP Pulse Ox 97.7 F L 68 16 143/80 H 96 08/10/18 08:57 08/10/18 11:00 08/10/18 08:57 08/10/18 08:57 08/10/18 08:57 Oxygen Delivery Method Room Air Weight: 138 lb 7.205 oz Body Mass Index (BMI) 25.3 Intake and Output for Last 24 Hours 08/08/18 08/09/18 08/10/18 23:59 23:59 23:59 Intake Total 4259 / 4259 2575 / 2575 1373 / 1373 Balance 4259 / 4259 2575 / 2575 1373 / 1373 General: Alert, Oriented x3, Cooperative, looks very uncomfortable in distress from headache. HEENT: Atraumatic, PERRLA, EOMI, Normocephalic Oral: Moist Mucosa Neck: Supple, No JVD, Negative Carotid Bruits Lungs: Clear to auscultation, Normal air movement, No rhonchi, No wheeze, No rales Cardiovascular: Regular rate, Regular Rhythm, Normal S1, Normal S2, No murmurs Abdomen: Bowel Sounds Present, Soft, Non Tender, Non-Distended, No Hepato-splenomegaly Extremities: No clubbing, No cyanosis, No edema, Capillary Refill Less than 3 Seconds Skin: No rashes, No breakdown Musculoskeletal: No Tenderness to Palpation of Joints or Extremities Lymphatic: No Cervical, Supraclavicular, or Inguinal Adenopathy Neurological: Cranial nerves II-XII grossly intact, Deep Tendon Reflexes 2+/4 and Symmetrical, Muscle tone normal, - - minimal numbness in LLE Psych/Mental Status: Normal Affect, Appropriate, Alert and oriented to time, place, person, mood and affect Microbiology Past 72 Hours 08/08/18 19:10 Urine, Clean Catch Urine Culture - Final Mixed Gram Positive Organisms 08/08/18 10:13 Csf, Spinal Fluid Gram Stain - Final 08/08/18 10:13 Csf, Spinal Fluid CSF Culture - Preliminary No growth in 24 hours. Final to follow. Laboratory Results 08/08/18 05:40: ADRIÁN Screen Negative, STEPHANE-1 Antibody Not Reportable, SS-A/Ro IgG Antibody Not Reportable, SS-B/La IgG Antibody Not Reportable, Sm (Justin) Antibody Not Reportable, COMPUTER SYSTEMS SECURITY ANALYST Antibody Not Reportable, Scl-70 Scleroderma Ab Not Reportable, Double Strand DNA Ab Not Reportable, Centromere B Antibody Not Reportable 08/08/18 05:40: Total Protein (PEP) 5.6 L, Albumin (PEP) 3.2, Globulin (PEP) 2.4, Albumin/Globulin (PEP) 1.3, Dviqy-6-Ciecdfjfg 0.2, Oagyj-5-Hnajonvir 0.7, Beta Globulins 0.7, Gamma Globulins 0.8, M-Augie , PEP Note Comment:, PEP Interpretation Comment 08/08/18 10:13: CSF Comment Reviewed 08/08/18 10:13: Miscellaneous Cytology SEE PATHOLOGY REPORT Diagnostic Data Brain CT 08/06/18 08:38 IMPRESSION: Normal unenhanced CT scan of the brain. Electronically Signed: Aly Ramsay, at 10:03 EDT , Service support , Brain MRI 08/06/18 13:31 IMPRESSION: Findings consistent with clinical diagnosis of multiple sclerosis with multiple enhancing plaques within the cerebral hemispheres bilaterally and left cerebellar hemisphere consistent with active demyelination. Electronically Signed: Marvin Ortega MD at 16:16 EDT , Service support , Cervical Spine MRI 08/06/18 13:32 IMPRESSION: Findings consistent with multiple sclerosis plaque at C3-4 without active demyelination at this time Minimal bulging of the discs at C5-6 and C6-7 without spinal stenosis Electronically Signed: Marvin Ortega MD at 16:20 EDT , Service support , Thoracic Spine MRI 08/07/18 14:18 IMPRESSION: Normal MRI of the thoracic spine with and without gadolinium. No evidence of previous or current demyelination in the thoracic spinal cord. at 0043 Reported and signed by: Kristian Olmos MD Electronically Signed: Kristian Olmos, at 0:42 EDT Tel , Service support , Lumbar Puncture Fluoroscopy 08/08/18 09:30 IMPRESSION: Successful fluoroscopic-guided lumbar puncture. Electronically Signed: Aly Ramsay, at 11:00 EDT , Service support , Current Medications Acetaminophen (Tylenol) 650 mg PO Q6H PRN PRN PRN Reason: PAIN Last Admin: 08/10/18 10:13 Dose: 650 mg Bisacodyl (Dulcolax) 5 mg PO DAILY [facility] Last Admin: 08/10/18 09:59 Dose: Not Given Calcium Carbonate (Tums) 1,000 mg PO Q6H PRN PRN PRN Reason: HEARTBURN Last Admin: 08/09/18 09:02 Dose: 1,000 mg Cholecalciferol (Vitamin D) 2,000 unit PO DAILY [facility] Last Admin: 08/10/18 09:59 Dose: 2,000 unit Dextrose (D50w Syringe) 0 gm IV X1 PRN; Protocol PRN Reason: Hypoglycemia Famotidine (Pepcid) 20 mg PO DAILY [facility] Last Admin: 08/10/18 10:03 Dose: 20 mg Glucagon () 1 mg IM .X1 PRN PRN Reason: Hypoglycemia Methylprednisolone 1,000 mg/ (Sodium Chloride) 116 mls @ 100 mls/hr IV DAILY [facility] Last Admin: 08/10/18 09:58 Dose: 100 mls/hr Ondansetron HCl (Zofran) 4 mg IV Q6H PRN PRN PRN Reason: NAUSEA Last Admin: 08/10/18 08:45 Dose: 4 mg Sodium Chloride () 5 - 15 ml IV UD PRN PRN Reason: SALINE FLUSH Last Admin: 08/10/18 09:59 Dose: 10 ml Medical Necessity - Tobacco Use Smoking Status: Never smoker Assessment/Plan All Active Problems (Last Updated 03/08/17 @ 13:21 by Lesvia Silva) Numbness (Acute) 1. Acute MS flare up in a newly diagnosed MS patient brain MRI: Multiple enhancing plaques in the cerebral hemispheres bilaterally in the left cerebellar hemisphere consistent with active demyelination. Findings consistent with clinical diagnosis of multiple sclerosis. Cervical spine MRI showed plaque at C3-4 without active demyelination at this time. thoracic spine MRI was normal IV solumedrol 1000mg daily; today is day 5 she had LP on 08/08/18: slightly elevated wbc and rbc, with elevated glucose of 79 and normal total proteina nd cell count. Cryptococcus Ag pending. rheumatologic panel also pending; ADRIÁN and RF are negative. neurology on board PT/OT on board 2. Post LP headache Complaining of severe headache which is worse with sitting up and gets better with lying down. This is concerning for post LP headache. Discussed with neurology about need for blood patch. Anesthesiology consulted as radiologist does not do blood patch in this hospital. Patient currently n.p.o., for blood patch later today. 3. UTI: patient complaining of burning with urination. Will start PO ciprofloxacin. UA grew mixed gram-positive organisms. 4. GERD: On famotidine and Tums. 5. Hypocalcemia: mild. On calcium carbonate. 6. Asymptomatic bradycardia: stable. Will monitor 7. ?Euthyroid sick syndrome TSH is low at 0.15; free T3 is also low at 1.4, but free T4 is WNL in light of patient's acute illness, this fits it with a picture of euthyroid sick syndrome to repeat thyroid studies once acute phase is over to determine if there is true hypothyroidism. follow up with PCP on outpatient basis DVT prophylaxis: SCDs Code Visit Inpatient E&M: 40027 Subs Hosp L3
--- NOTE | 2018-08-10 12:22 | PN_ITS ---
Patient Problems: Active and Suspected Problems (Last Updated 03/08/17 @ 13:21 by Lesvia Silva) Numbness (Acute) Subjective: Patient seen and examined. She complains of a severe headache which is worsened with sitting up and gets better with lying down. She has associated nausea. Numbness and tingling has improved significantly review of systems otherwise negative. Vitals reviewed. Vitals/I&O's: Vital Signs Temp Pulse Resp BP Pulse Ox 97.7 F L 68 16 143/80 H 96 08/10/18 08:57 08/10/18 11:00 08/10/18 08:57 08/10/18 08:57 08/10/18 08:57 Oxygen Delivery Method Room Air Weight: 138 lb 7.205 oz Body Mass Index (BMI) 25.3 Intake and Output for Last 24 Hours 08/08/18 08/09/18 08/10/18 23:59 23:59 23:59 Intake Total 4259 / 4259 2575 / 2575 1373 / 1373 Balance 4259 / 4259 2575 / 2575 1373 / 1373 General: Alert, Oriented x3, Cooperative, looks very uncomfortable in distress from headache. HEENT: Atraumatic, PERRLA, EOMI, Normocephalic Oral: Moist Mucosa Neck: Supple, No JVD, Negative Carotid Bruits Lungs: Clear to auscultation, Normal air movement, No rhonchi, No wheeze, No rales Cardiovascular: Regular rate, Regular Rhythm, Normal S1, Normal S2, No murmurs Abdomen: Bowel Sounds Present, Soft, Non Tender, Non-Distended, No Hepato- splenomegaly Extremities: No clubbing, No cyanosis, No edema, Capillary Refill Less than 3 Seconds Skin: No rashes, No breakdown Musculoskeletal: No Tenderness to Palpation of Joints or Extremities Lymphatic: No Cervical, Supraclavicular, or Inguinal Adenopathy Neurological: Cranial nerves II-XII grossly intact, Deep Tendon Reflexes 2+/4 and Symmetrical, Muscle tone normal, - - minimal numbness in LLE Psych/Mental Status: Normal Affect, Appropriate, Alert and oriented to time, place, person, mood and affect Microbiology Past 72 Hours 08/08/18 19:10 Urine, Clean Catch Urine Culture - Final Mixed Gram Positive Organisms 08/08/18 10:13 Csf, Spinal Fluid Gram Stain - Final 08/08/18 10:13 Csf, Spinal Fluid CSF Culture - Preliminary No growth in 24 hours. Final to follow. Laboratory Results 08/08/18 05:40: ADRIÁN Screen Negative, STEPHANE-1 Antibody Not Reportable, SS-A/Ro IgG Antibody Not Reportable, SS-B/La IgG Antibody Not Reportable, Sm (Justin) Antibody Not Reportable, DRUM BARKER OPERATOR Antibody Not Reportable, Scl-70 Scleroderma Ab Not Reportable, Double Strand DNA Ab Not Reportable, Centromere B Antibody Not Reportable 08/08/18 05:40: Total Protein (PEP) 5.6 L, Albumin (PEP) 3.2, Globulin (PEP) 2.4, Albumin/Globulin (PEP) 1.3, Isofu-5-Pgcrlyqff 0.2, Eiojn-0-Gevputjea 0.7, Beta Globulins 0.7, Gamma Globulins 0.8, M-Augie , PEP Note Comment:, PEP Interpretation Comment 08/08/18 10:13: CSF Comment Reviewed 08/08/18 10:13: Miscellaneous Cytology SEE PATHOLOGY REPORT Diagnostic Data Brain CT 08/06/18 08:38 IMPRESSION: Normal unenhanced CT scan of the brain. Electronically Signed: Aly Ramsay, at 10:03 EDT , Service support , Brain MRI 08/06/18 13:31 IMPRESSION: Findings consistent with clinical diagnosis of multiple sclerosis with multiple enhancing plaques within the cerebral hemispheres bilaterally and left cerebellar hemisphere consistent with active demyelination. Electronically Signed: Marvin Ortega MD at 16:16 EDT , Service support , Cervical Spine MRI 08/06/18 13:32 IMPRESSION: Findings consistent with multiple sclerosis plaque at C3-4 without active demyelination at this time Minimal bulging of the discs at C5-6 and C6-7 without spinal stenosis Electronically Signed: Marvin Ortega MD at 16:20 EDT , Service support , Thoracic Spine MRI 08/07/18 14:18 IMPRESSION: Normal MRI of the thoracic spine with and without gadolinium. No evidence of previous or current demyelination in the thoracic spinal cord. at 0043 Reported and signed by: Kristian Olmos MD Electronically Signed: Kristian Olmos, at 0:42 EDT Tel , Service support , Lumbar Puncture Fluoroscopy 08/08/18 09:30 IMPRESSION: Successful fluoroscopic-guided lumbar puncture. Electronically Signed: Aly Ramsay, at 11:00 EDT , Service support , Current Medications Acetaminophen (Tylenol) 650 mg PO Q6H PRN PRN PRN Reason: PAIN Last Admin: 08/10/18 10:13 Dose: 650 mg Bisacodyl (Dulcolax) 5 mg PO DAILY [facility] Last Admin: 08/10/18 09:59 Dose: Not Given Calcium Carbonate (Tums) 1,000 mg PO Q6H PRN PRN PRN Reason: HEARTBURN Last Admin: 08/09/18 09:02 Dose: 1,000 mg Cholecalciferol (Vitamin D) 2,000 unit PO DAILY [facility] Last Admin: 08/10/18 09:59 Dose: 2,000 unit Dextrose (D50w Syringe) 0 gm IV X1 PRN; Protocol PRN Reason: Hypoglycemia Famotidine (Pepcid) 20 mg PO DAILY [facility] Last Admin: 08/10/18 10:03 Dose: 20 mg Glucagon () 1 mg IM .X1 PRN PRN Reason: Hypoglycemia Methylprednisolone 1,000 mg/ (Sodium Chloride) 116 mls @ 100 mls/hr IV DAILY [facility] Last Admin: 08/10/18 09:58 Dose: 100 mls/hr Ondansetron HCl (Zofran) 4 mg IV Q6H PRN PRN PRN Reason: NAUSEA Last Admin: 08/10/18 08:45 Dose: 4 mg Sodium Chloride () 5 - 15 ml IV UD PRN PRN Reason: SALINE FLUSH Last Admin: 08/10/18 09:59 Dose: 10 ml Medical Necessity - Tobacco Use Smoking Status: Never smoker Assessment/Plan All Active Problems (Last Updated 03/08/17 @ 13:21 by Lesvia Silva) Numbness (Acute) 1. Acute MS flare up in a newly diagnosed MS patient * brain MRI: Multiple enhancing plaques in the cerebral hemispheres bilaterally in the left cerebellar hemisphere consistent with active demyelination. Findings consistent with clinical diagnosis of multiple sclerosis. * Cervical spine MRI showed plaque at C3-4 without active demyelination at this time. * thoracic spine MRI was normal * IV solumedrol 1000mg daily; today is day 5 * she had LP on 08/08/18: slightly elevated wbc and rbc, with elevated glucose of 79 and normal total proteina nd cell count. Cryptococcus Ag pending. * rheumatologic panel also pending; ADRIÁN and RF are negative. * neurology on board * PT/OT on board 2. Post LP headache * Complaining of severe headache which is worse with sitting up and gets better with lying down. This is concerning for post LP headache. * Discussed with neurology about need for blood patch. Anesthesiology consulted as radiologist does not do blood patch in this hospital. * Patient currently n.p.o., for blood patch later today. * 3. UTI: patient complaining of burning with urination. Will start PO ciprofloxacin. UA grew mixed gram-positive organisms. 4. GERD: On famotidine and Tums. 5. Hypocalcemia: mild. On calcium carbonate. 6. Asymptomatic bradycardia: stable. Will monitor 7. ?Euthyroid sick syndrome * TSH is low at 0.15; free T3 is also low at 1.4, but free T4 is WNL * in light of patient's acute illness, this fits it with a picture of euthyroid sick syndrome * to repeat thyroid studies once acute phase is over to determine if there is true hypothyroidism. * follow up with PCP on outpatient basis * DVT prophylaxis: SCDs Code Visit Inpatient E&M: 92004 Subs Hosp L3
--- NOTE | 2018-08-10 12:27 | NURSING ---
This RN called [facility] and gave report to KORINA Kowalski.
[2018-08-10] MEDS: Midazolam 2 MG/2 ML Syringe IV (13:50)
[2018-08-10 16:07] LABS: Angiotensin Convert Enzyme 22 U/L (14-82); Cytoplasmic Ab (C-ANCA) <1:20 titer (Neg:<1:20)
[2018-08-10] MEDS: Ciprofloxacin 500 MG Tablet PO (16:29)
[2018-08-10] MEDS: proMETHazine 25 MG/ML Syringe 12.5 MG IV (18:11)
[2018-08-10] MEDS: 0.45% Normal Saline 1,000 ML 125 ML IV (18:12)
[2018-08-10] MEDS: Ciprofloxacin 400 MG/200 ML BAG 200 MG IV (18:24)
[2018-08-11 03:05] VITALS: PULSE 64
[2018-08-11 04:00] VITALS: BP 119/73; PULSE 68; RESP 18; TEMP 36.8; O2SAT 95
[2018-08-11 06:14] LABS: Absolute Lymphocyte Count 1.25 X10^3/ul (0.83-4.51); Absolute Neutrophil Count 6.1 X10^3/uL (2.0-7.7); Basophil# 0.01 X10^3/uL; Basophil% 0.1 % (0-1); Hematocrit 39.9 % (37-47); Hemoglobin 13.8 g/dl (12.0-15.0); Lymphocyte # 1.25 X10^3/ul (4.0); Mean Corp Hgb Conc 34.6 g/gl (32-36); Mean Corpuscular Hgb 29.6 pg (27.0-32.0); Mean Corpuscular Volume 85.4 fL (81-99); Mean Platelet Vol. 12.1 fl (6.2-12.0); Monocyte# 0.78 X10^3/uL; Monocyte% 9.3 % (0-10); Neutrophil % 73.1 % (47-70); POSITIVE COUNT YES; POSITIVE DIFFERENTIAL NO; POSITIVE MORPHOLOGY YES; Platelet Count 200 K/mm3 (150-450); RBC Distribution Width CV 11.8 % (11.6-14.6); RBC Distribution Width SD 35.9 fl (35.1-43.9); Red Blood Count 4.67 M/mm3 (4.2-5.4); White Blood Count 8.4 K/mm3 (4.4-11.0)
[2018-08-11 06:38] LABS: Anion Gap 8 (5-15); BUN 13 mg/dL (7-18); BUN/Creat Ratio 20.3 RATIO (10-20); Chloride 108 mmol/L (98-107); Creatinine, Serum 0.64 mg/dL (0.55-1.02); EST Glomerular Filtration Rate 120 mL/min (>60); Est Glom Filt Rate - Afr Amer 145 mL/min (>60); Glucose 102 mg/dL (74-106); Potassium 3.4 mmol/L (3.5-5.1); Sodium Level 143 mmol/L (136-145)
[2018-08-11 07:00] VITALS: PULSE 81
[2018-08-11] MEDS: Ciprofloxacin 400 MG/200 ML BAG 200 MG IV (09:07)
[2018-08-11] MEDS: Famotidine 20 MG Tablet PO (09:07)
--- NOTE | 2018-08-11 09:10 | DCINST_ITS ---
- Discharge Diagnoses Current Active Problems: Current Active and Chronic Problems (Last Updated 03/08/17 @ 13:21 by Lesvia Silva) Numbness (Acute) You will use the following diet at home:: No restrictions Your food should be the consistency of: Regular Your liquids should be the consistency of: Regular/Thin Discharge Activity: Return to Normal Activity Weight Bearing Status: Weight bearing as tolerated Call your doctor if you observe: Numbness or Tingling, Dizziness, Fainting spells Instructions: ED Paraesthesias Allergies/Adverse Reactions: Allergies codeine Allergy (Verified 08/06/18 08:26) Rash/vomiting Medications to take at Discharge Ciprofloxacin HCl 500 mg PO BID #10 tablet 08/11/18 The following prescriptions were given: Ciprofloxacin HCl 500 mg PO BID #10 tablet Primary Care Physician: Steve Vega MD [STAFF PHYSICIAN] - As soon as possible Please follow up with your Primary Care Physician in: ONE WEEK Test Results: Test results from this visit will be discussed in further detail at your follow- up appointment, if applicable. Please Follow Up With: Sawyer Joshi MD - [phone] When: ONE WEEK; CALL OFFICE TO MAKE PCP APPOINTMENT Proposed Discharge Date: 08/11/18
--- NOTE | 2018-08-11 09:10 | PCM.DC.SUM ---
Discharge Date and Diagnosis Date of Admission: 08/06/18 Date of Discharge: 08/11/18 - Primary Discharge Diagnosis Active and Suspected Problems (Last Updated 03/08/17 @ 13:21 by Lesvia Silva) Numbness (Acute) UTI acute flareup of multiple sclerosis (newly diagnosed) Post-Lumbar puncture headache Hospital Course and Treatment Imaging Results: Diagnostic Data Brain CT 08/06/18 08:38 IMPRESSION: Normal unenhanced CT scan of the brain. Electronically Signed: Aly Ramsay, at 10:03 EDT , Service support , Brain MRI 08/06/18 13:31 IMPRESSION: Findings consistent with clinical diagnosis of multiple sclerosis with multiple enhancing plaques within the cerebral hemispheres bilaterally and left cerebellar hemisphere consistent with active demyelination. Electronically Signed: Marvin Ortega MD at 16:16 EDT , Service support , Cervical Spine MRI 08/06/18 13:32 IMPRESSION: Findings consistent with multiple sclerosis plaque at C3-4 without active demyelination at this time Minimal bulging of the discs at C5-6 and C6-7 without spinal stenosis Electronically Signed: Marvin Ortega MD at 16:20 EDT , Service support , Thoracic Spine MRI 08/07/18 14:18 IMPRESSION: Normal MRI of the thoracic spine with and without gadolinium. No evidence of previous or current demyelination in the thoracic spinal cord. at 0043 Reported and signed by: Kristian Olmos MD Electronically Signed: Kristian Olmos, at 0:42 EDT Tel , Service support , Lumbar Puncture Fluoroscopy 08/08/18 09:30 IMPRESSION: Successful fluoroscopic-guided lumbar puncture. Electronically Signed: Aly Ramsay, at 11:00 EDT , Service support , neurology- Dr Lamb Anesthesia- Dr Higuera Procedures: - - lumbar puncture Summary of Care Provided: The patient is a 22 year old F admitted through the ED on 08/06/2018 with a complaint of tingling in her upper and lower extremities. Symptoms started 2 days before admission and persisted and so she decided to come into the ED. She did not have any weakness in any extremity, any blurred vision, any drooping of her mouth, any headache or any difficulty swallowing. She did have any extreme lethargy either. Her father has a history of multiple sclerosis and was diagnosed in his early 20s after symptoms started with tingling. Review of systems otherwise negative. In the ED, CBC and CMP were unremarkable and CT of the head was also unremarkable. Case was discussed by the ED doctor with neurology who recommended an MRI of the brain and C-spine. MRI of the brain revealed multiple enhancing plaques in the bilateral cerebral hemispheres and left cerebellar hemisphere consistent with multiple sclerosis and MRI of the cervical spine also showed an MS plaque at C3-4 without active demyelination. She was admitted to be managed for newly diagnosed multiple sclerosis. Neurology was consulted and she was started on IV Solu-Medrol thousand milligrams daily for total of 5-day course. Thoracic spine MRI was also done which showed no evidence of previous or current demyelination and thoracic spinal cord. Numbness improved slightly during her stay. Patient completed a 5-day course of IV Solu-Medrol. She had a lumbar puncture done under fluoroscopy which showed only minimally elevated white cell count and high glucose. CSF cryptococcal antigen was pending at time of discharge. Immunologic panel ordered showed negative rheumatoid factor and negative anti-SS DNA antibody and also negative P-Anca and C-Anca. Rheumatologic panel was largely negative. Patient stay was also complicated by a headache which started about 48 hours after the lumbar puncture. This was thought to be due to post LP headache and so she had a blood patch done by anesthesia. Headache substernally resolved. She also developed a UTI during admission and was started on ciprofloxacin for it. Patient remained stable and was discharged home on 08/11/2018 with a prescription for p.o. ciprofloxacin for 5 days. She is to follow-up with her primary care doctor with neurology within 1 week. Patient has no PCP, so she was referred to Dr. Anthony Joshi to establish PCP relationship. Patient seen and examined prior to discharge. She had no complaints and felt well. Nausea and vomiting had resolved. Review of systems otherwise negative. Labs and vitals reviewed. Home medication reviewed and reconciled. o/e: Vital Signs Height 5 ft 2 in Weight: 138 lb 7.205 oz Weight in Pounds 138.5 lbs Pulse Ox 98 Temperature 98.1 F Pulse Rate 87 Respiratory Rate 16 Blood Pressure 108/61 Blood Pressure Position Supine General: Alert, Oriented x3, Cooperative, No apparent distress HEENT: Atraumatic, PERRLA, EOMI, Normocephalic Oral: Moist Mucosa Neck: Supple, No JVD, Negative Carotid Bruits Lungs: Clear to auscultation, Normal air movement, No rhonchi, No wheeze, No rales Cardiovascular: Regular rate, Regular Rhythm, Normal S1, Normal S2, No murmurs Abdomen: Bowel Sounds Present, Soft, Non Tender, Non-Distended, No Hepato-splenomegaly Extremities: No clubbing, No cyanosis, No edema, Capillary Refill Less than 3 Seconds Skin: No rashes, No breakdown Musculoskeletal: No Tenderness to Palpation of Joints or Extremities Lymphatic: No Cervical, Supraclavicular, or Inguinal Adenopathy Neurological: Cranial nerves II-XII grossly intact, Deep Tendon Reflexes 2+/4 and Symmetrical, Muscle tone normal, - - minimal numbness in LLE Psych/Mental Status: Normal Affect, Appropriate, Alert and oriented to time, place, person, mood and affect Plan as above. - Physical Exam Vital Signs Temp Pulse Resp BP Pulse Ox 98.2 F 81 18 119/73 95 08/11/18 04:00 08/11/18 07:00 08/11/18 04:00 08/11/18 04:00 08/11/18 04:00 Oxygen Delivery Method Room Air Weight: 138 lb 7.205 oz Body Mass Index (BMI) 25.3 Intake and Output for Last 24 Hours 08/09/18 08/10/18 08/11/18 23:59 23:59 23:59 Intake Total 2575 / 2575 2423 / 2423 1201 / 1201 Balance 2575 / 2575 2423 / 2423 1201 / 1201 Microbiology Past 72 Hours 08/08/18 10:13 Gram Stain - Final Csf, Spinal Fluid CSF Culture - Final No growth in 72 hours. 08/08/18 19:10 Urine Culture - Final Urine, Clean Catch Mixed Gram Positive Organisms Laboratory Tests Past 24 Hrs 08/11/18 08/11/18 05:55 05:55 WBC 8.4 RBC 4.67 Hgb 13.8 Hct 39.9 MCV 85.4 MCH 29.6 MCHC 34.6 RDW 11.8 RDW Differential 35.9 Plt Count 200 MPV 12.1 H Immature Gran % (Auto) 2.500 H Neut % (Auto) 73.1 H Lymph % (Auto) 15.0 L Williamson % (Auto) 9.3 Eos % (Auto) 0.0 Baso % (Auto) 0.1 Absolute Neuts (auto) 6.1 Absolute Lymphs (auto) 1.25 Total Counted Not Reportable Diff Path Review May foll Sodium 143 Potassium 3.4 L Chloride 108 H Carbon Dioxide 27.0 Anion Gap 8 BUN 13 Creatinine 0.64 Estim Creat Clear Calc 107.20 Est GFR (MDRD) Af Amer 145 Est GFR (MDRD) Non-Af 120 BUN/Creatinine Ratio 20.3 H Glucose 102 Calcium 8.0 L Discharge Diet: No Restrictions Discharge Activity: Return to Normal Activity Weight Bearing Status: Weight bearing as tolerated Call your doctor if you observe: Numbness or Tingling, Dizziness, Fainting spells Home Medications: Medications to take at Discharge Ciprofloxacin HCl 500 mg PO BID #10 tablet 08/11/18 Following Prescrptions Were Given to Patient: Ciprofloxacin HCl 500 mg PO BID #10 tablet Primary Care Physician: Steve Vega MD [STAFF PHYSICIAN] - As soon as possible Please follow up with your Primary Care Physician in: ONE WEEK Please Follow Up With: Sawyer Joshi MD - [phone] When: ONE WEEK; CALL OFFICE TO MAKE PCP APPOINTMENT Patient Instructions: ED Paraesthesias Disposition: Home Minutes spent on discharge:: 40 Patient Condition:: Stable Medical Necessity - Tobacco Use Smoking Status: Never smoker Meaningful Use Info Meaningful Use Diagnoses (Choose all that apply): None applicable Code Visit Inpatient E&M: 51643 Disch Hosp
[2018-08-11 09:22] VITALS: BP 108/61; PULSE 87; RESP 16; TEMP 36.7; O2SAT 98
[2018-08-11 12:35] LABS: HEPATITIS B SURFACE AG Negative (Negative); Hep C Antibodies <0.1 s/co ratio (0.0-0.9); Perinuclear Ab (P-ANCA) <1:20 titer (Neg:<1:20)
[2018-08-14 14:47] LABS: Pathologist Review Reviewed
[2018-08-14 16:09] LABS: PROELU- Albumin, Urine 49.7 % (.); PROELU- Alpha-1-Globulin,Ur 5.1 % (.); PROELU- Alpha-2-Globulin,Ur 10.8 % (.); PROELU- Beta Globulin, Ur 20.7 % (.); PROELU- Gamma Globulin, Ur 13.7 % (.); Total Protein, Ur 21.6 mg/dL (Not Estab.)
[2018-08-14 20:06] LABS: Cryptococcus Antigen CSF Negative (Negative); HSV 1 By PCR Negative (Negative)
[2018-08-15 15:51] LABS: CMV by PCR Negative (Negative); HSV 2 By PCR Negative (Negative)
== END 2018-08-11 10:48 | disposition home or self-care (01) | DRG 43 ==
LOC: ED 10:54 → PCU 08-07 07:34
PROVIDERS: Anesthesiology; Psychiatry & Neurology Neurology; Admitting Provider Student in an Organized Health Care Education/Training Program; Emergency Provider Emergency Medicine; Visit Provider Student in an Organized Health Care Education/Training Program
PROC: 3E0R3GC Introduction of Other Therapeutic Substance into Spinal Canal, Percutaneous Approach (ICD-10-PCS; CPT 62273; principal; 2018-08-10 12:55)
DX: G35 Multiple sclerosis (principal); N39.0 Urinary tract infection, site not specified; G97.1 Other reaction to spinal and lumbar puncture; Y84.4 Aspiration of fluid as the cause of abnormal reaction of the patient, or of later complication, without mention of misadventure at the time of the procedure; E07.81 Sick-euthyroid syndrome; Z82.0 Family history of epilepsy and other diseases of the nervous system; Z88.5 Allergy status to narcotic agent; G89.29 Other chronic pain; M54.9 Dorsalgia, unspecified; E83.51 Hypocalcemia; K21.9 Gastro-esophageal reflux disease without esophagitis; R00.1 Bradycardia, unspecified
CPT/HCPCS: 36415; 62270; 70450; 70553; 72156; 72157; 77003; 80048; 81002; 82164; 82306; 82607; 82945; 84157; 84165; 84166; 84439; 84443; 84481; 84703; 85025; 86038; 86225; 86226; 86235; 86256; 86431; 86803; 87070; 87086; 87088; 87205; 87340; 87496; 87529; 87899; 88108; 88313; 89050; 89051; 99283; A9575; J7030; J7120; A4216; J0744; J2405; J2930

== ENCOUNTER 2018-08-18 12:25 | Emergency (ER) | payer MEDICAID, SELFPAY ==
[2018-08-10 11:07] VITALS: BMI 25.3
[2018-08-18 12:26] VITALS: BP 144/82; PULSE 100; RESP 18; TEMP 36.6; O2SAT 99; BMI 25.6
--- NOTE | 2018-08-18 13:06 | ED.DCSUM_ITS ---
- ER Visit Summary Date of Service: 08/18/18 Chief Complaint: Left-sided numbness History of Present Illness: The patient is a 22 F who presents with numbness to her left upper and lower extremities that became worse today. Patient also admits to some numbness in her right hand. Patient was admitted here last week and was diagnosed with multiple sclerosis at that time. Patient was also diagnosed with a urinary tract infection and completed an antibiotic for that. Patient states that her numbness became worse today and was told to come back to the emergency department if she develops worsening symptoms. Patient denies any visual changes. Patient denies any weakness. Patient states the numbness is localized to the left upper and lower extremities and right hand. Physical Examination: Vital signs are stable. Patient is afebrile. Patient is in no acute distress. Oral mucosa is pink and moist. Neck is supple. Trachea is midline. There is no JVD noted. Heart was regular rate and rhythm. Lungs are clear and equal bilateral. Abdomen is soft. Bowel sounds are normal. There is no tenderness. There is no guarding noted. Skin is warm dry. Cranial nerves II through XII are intact. There there is decreased sensation to light touch in the left upper and lower extremities and right hand. Strength is 5/5 bilaterally upper and lower extremities. The remaining physical exam is within normal limits. Test Results: CBC and basic metabolic profile were normal. hCG was negative. Emergency Department Course and Treatment: Case was discussed with Dr. Vega. He agrees with placing the patient back on a course of steroids. He recommended a 2-week course of steroids. He will follow-up with the patient as an outpatient next week. Patient and family understood and were agreeable with the plan. All questions were answered. Disposition: Discharge home Impression: Multiple sclerosis exacerbation This note was generated with [employer] software. It may contain incorrect words, spelling, and punctuation that were not noted in review of the chart prior to signing ED Disposition - Plan for ED Patient: Disposition: Home or Assisted Living Diagnosis: Multiple sclerosis exacerbation Instructions: ED Paraesthesias Prescriptions: Prednisone 10 mg PO DAILY #63 tab Referrals: Care Physician,No Primary [NON-STAFF] - Steve Vega MD [STAFF PHYSICIAN] - 5-7 Days
[2018-08-18 13:17] LABS: Absolute Lymphocyte Count 1.52 X10^3/ul (0.83-4.51); Absolute Neutrophil Count 5.6 X10^3/uL (2.0-7.7); Basophil# 0.01 X10^3/uL; Basophil% 0.1 % (0-1); Eosinophils% 1.3 % (0-5); Hematocrit 40.7 % (37-47); Hemoglobin 13.7 g/dl (12.0-15.0); Lymphocyte # 1.52 X10^3/ul (4.0); Mean Corp Hgb Conc 33.7 g/gl (32-36); Mean Corpuscular Hgb 29.6 pg (27.0-32.0); Mean Corpuscular Volume 87.9 fL (81-99); Mean Platelet Vol. 11.9 fl (6.2-12.0); Monocyte# 0.64 X10^3/uL; Neutrophil # 5.61 X10^3/uL (2.7-7.7); Neutrophil % 70.1 % (47-70); POSITIVE COUNT NO; POSITIVE DIFFERENTIAL NO; POSITIVE MORPHOLOGY NO; Platelet Count 201 K/mm3 (150-450); RBC Distribution Width CV 12.4 % (11.6-14.6); RBC Distribution Width SD 38.4 fl (35.1-43.9); Red Blood Count 4.63 M/mm3 (4.2-5.4)
[2018-08-18 13:30] LABS: Anion Gap 7 (5-15); BUN 9 mg/dL (7-18); BUN/Creat Ratio 12.6 RATIO (10-20); Calcium,Total 8.5 mg/dL (8.5-10.1); Chloride 104 mmol/L (98-107); Creatinine, Serum 0.72 mg/dL (0.55-1.02); EST Glomerular Filtration Rate 106 mL/min (>60); Est Glom Filt Rate - Afr Amer 128 mL/min (>60); Estimated Creatinine Clearance 95.29 ml/min; Glucose 115 mg/dL (74-106); Potassium 3.5 mmol/L (3.5-5.1); Sodium Level 140 mmol/L (136-145)
[2018-08-18 13:36] LABS: Internal QC Validated? YES +Cl - CLEAR BKGD; Pregnancy, Serum, hCG Quali. NEGATIVE Negative
[2018-08-18 15:29] VITALS: BP 132/82; PULSE 82; RESP 16; O2SAT 99
== END 2018-08-18 15:57 | disposition home or self-care (01) ==
PROVIDERS: Emergency Provider Emergency Medicine; Family Provider Nurse Practitioner Family; PCP Nurse Practitioner Family
DX: G35 Multiple sclerosis (principal)
CPT/HCPCS: 80048; 84703; 85025; 99283; A4216

== ENCOUNTER 2019-02-12 13:03 | Inpatient (IN) | payer MEDICAID, SELFPAY ==
[2019-02-12 13:04] VITALS: BP 126/71; PULSE 92; RESP 18; TEMP 36.6; O2SAT 100; BMI 24.3
--- NOTE | 2019-02-12 13:48 | ED.DCSUM_ITS ---
- ER Visit Summary Date of Service: 02/12/19 Chief Complaint: Weakness History of Present Illness: Presents with numbness left hand and left face for 3 days today she had some left eye blurred vision. No loss of strength no chest pain shortness of breath fever or chills. She has had prior similar symptoms in the past. There was secondary to her multiple sclerosis she was diagnosed about 9 months ago. She has had 2 hospitalizations prior to this. Past medical history: Multiple sclerosis Past surgical history: None Social history: Noncontributory Review of systems: No loss of consciousness Vision changes as above Left face numbness as above No chest pain No shortness of breath No abdominal pain No chest wall pain No vaginal bleeding Denies No skin lesions Paresthesias without any loss of strength No polyuria Physical Examination: Not appear in acute distress. Moist mucous membranes, no obvious facial deformity No C-spine tenderness supple neck. Regular rate and rhythm without any obvious murmurs Clear lungs bilaterally speaking in full sentences without any obvious respiratory distress Abdomen soft and nontender no guarding or rebound Moves all extremities without any difficulty or pain. Skin does not show any obvious rashes or lesions, no trauma. Alert oriented ?3 slight paresthesias on the left side barely detectable. Vision on the left is grossly intact. Emergency Department Course and Treatment: Patient is given a gram of Solu-Medrol in the emergency department I talked to neurology and I talked to the patient. I talked to the hospitalist for admission. Admit stable condition Impression: MS flare This note was generated with [employer] dictation software. It may contain incorrect words, spelling, and punctuation that were not noted in review of the chart prior to signing ED Disposition - Plan for ED Patient: Disposition: Acute Care Hospital [facility]
--- NOTE | 2019-02-12 14:19 | HP.PCM_ITS ---
Problem List (1) Exacerbation of multiple sclerosis Status: Acute History of Present Illness Date of Admission: 02/12/19 Chief Complaint: Numbness on her forehead, blurred vision in left eye. The patient is a 23 year old F with known history of multiple sclerosis was in her normal state of health and then about 4 days ago, started experiencing numbness over her forehead then followed by blurred vision in her left eye and numbness in her left arm. This is all consistent with her prior exacerbations of multiple sclerosis. Patient states that she did not let it get it is advanced as a has previously so presented to the emergency room. Given her hi story, neurology was contacted the emergency room and recommended methylprednisolone 1 g daily for 5 days. Patient's last flareup was in September where she was seen at [facility] at that time. Patient states that she has been otherwise feeling well but recently has had a cold. 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 Denies: Double vision HEENT: Denies: Head Aches, Sinus Congestion, Sinus Drainage Cardiovascular: Denies: Chest Pain, Palpitations Respiratory: Reports: Cough. Denies: Shortness of breath at rest, Sputum production Gastrointestinal: Denies: Abdominal Pain, Nausea, Vomiting Genitourinary: Denies: Dysuria Musculoskeletal: Denies: Joint Pain, Joint Tenderness Skin: Denies: Rash, Wounds Neurological: Reports: Blurred vision, Numbness. Denies: Focal weakness, Tingling Psychiatric: Denies: Anxiety, Depression Hematologic/ Lymphatic: Denies: Easy Bruising, Easy Bleeding, Hx of blood clot Comment: All review systems are otherwise negative except for as mentioned above and in the HPI. VTE Information - Inpt Only VTE Present on Admission: No VTE Mechan Device Prophylaxis: None VTE Pharm Prophylaxis ordered?: No Reason prophylaxis not ordered:: Procedure Not Indicated Patient Problems: Active and Suspected Problems (Last Updated 03/08/17 @ 13:21 by Lesvia Silva) Exacerbation of multiple sclerosis (Acute) - Physical Exam Vitals/I&O's: Vital Signs Temp Pulse Resp BP Pulse Ox 36.6 C 92 18 126/71 H 100 02/12/19 13:04 02/12/19 13:04 02/12/19 13:04 02/12/19 13:04 02/12/19 13:04 Oxygen Delivery Method Room Air Weight: 60.4 kg Body Mass Index (BMI) 24.3 General: Alert, Cooperative, No apparent distress, Well developed, Well nourished HEENT: Atraumatic, PERRLA, EOMI, Normocephalic Oral: Moist Mucosa, No Gingival or Mucosal Lesions/ Ulcerations Neck: No Nodes, Trachea Midline Lungs: Clear to auscultation, Normal air movement, No rhonchi, No wheeze, No rales Cardiovascular: Regular rate, Regular Rhythm, Normal S1, Normal S2, No murmurs Abdomen: Bowel Sounds Present, Soft, Non Tender, Non-Distended, No Hepato- splenomegaly Extremities: No edema, No Calf Tenderness Skin: No rashes, No breakdown Musculoskeletal: No Tenderness to Palpation of Joints or Extremities, No Muscle Wasting Neurological: Cranial nerves II-XII grossly intact, Motor Exam 5/5 strength throughout - 4/5 in the left lower extremity., Sensory exam intact to light touch and pain Psych/Mental Status: Normal Affect, Appropriate Current Medications Methylprednisolone 1,000 mg/ (Sodium Chloride) 116 mls @ 100 mls/hr IV X1 ONE Stop: 02/12/19 14:53 Sodium Chloride () 1,000 mls @ 1,000 mls/hr IV .Q1H ONE Stop: 02/12/19 14:39 Assessment/Plan All Active Problems (Last Updated 03/08/17 @ 13:21 by Lesvia Silva) Numbness (Acute) Exacerbation of multiple sclerosis (Acute) 1. Acute exacerbation of multiple sclerosis * This been consistent with prior flares may be coinciding with a recent upper respiratory infection * Neurology is recommended 5 days of 1 g of methylprednisolone * neurology will be available on direct consultation through the * We will check a urinalysis to ensure that there is no urinary tract infection * We will check a brain MRI 2. VTE prophylaxis: Low risk patient will be ambulatory. Code Visit Inpatient E&M: 14285 Init Hosp L3
[2019-02-12] MEDS: 0.9% Normal Saline 1,000 ML 1000 ML IV (14:28)
[2019-02-12 14:30] LABS: Absolute Lymphocyte Count 1.32 X10^3/uL (0.83-4.51); Absolute Neutrophil Count 4.7 X10^3/uL (2.0-7.7); Basophil# 0.03 X10^3/uL; Basophil% 0.5 % (0-1); Eosinophil# 0.08 X10^3/uL; Eosinophils% 1.2 % (0-5); Hematocrit 44.5 % (37-47); Hemoglobin 14.5 g/dL (12.0-15.0); Lymphocyte # 1.32 X10^3/ul (4.0); Lymphocyte % 19.9 % (19-41); Mean Corp Hgb Conc 32.6 g/dL (32-36); Mean Corpuscular Hgb 29.4 pg (27.0-32.0); Mean Corpuscular Volume 90.3 fL (81-99); Mean Platelet Vol. 12.1 fl (6.2-12.0); Monocyte# 0.53 X10^3/uL; NRBC Flagged by Analyzer 0 % (0-5); Neutrophil # 4.66 X10^3/uL (2.7-7.7); Neutrophil % 70.1 % (47-70); Platelet Count 240 K/mm3 (150-450); RBC Distribution Width CV 12.1 % (11.6-14.6); RBC Distribution Width SD 39.8 fl (35.1-43.9); Red Blood Count 4.93 M/mm3 (4.2-5.4); White Blood Count 6.6 K/mm3 (4.4-11.0)
--- NOTE | 2019-02-12 14:35 | PCM.CONS.GEN ---
Problem List (1) Exacerbation of multiple sclerosis Status: Acute (2) Numbness Status: Acute Reason for Consult Date of Consultation: 02/12/19 Reason for Consultation: Likely MS exacerbation History of Present Illness: The patient is a 23 year old F with PMH RRMS on Ocrevus admitted with new onset numbness and visual blurring. Per patient she started having left hand numbness and forehead numbness about 3 to 4 days ago along with left visual blurring. Denies any focal motor weakness, painful vision loss, headache, dizziness, speech problems. She denies any fever, sick contact, urinary frequency, urgency or incontinence at present. Per patient she sees neurologist at and has been started on Ocrevus since December 2018. She was admitted to [facility] in July 2018 with left-sided paresthesias when she was initially diagnosed with MS. 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 Lives: With Family Smoking Status: Never smoker Alcohol: None Drugs: None - *Family History Paternal History Items: - - father has Multiple Sclerosis Maternal History Items: No pertinent history Review of Systems Constitutional: Reports: - - Complete ROS negative except as documented in HPI Patient Problems: Active and Suspected Problems (Last Updated 02/12/19 @ 14:21 by Wu Dawson DO) Exacerbation of multiple sclerosis (Acute) - Physical Exam Vitals/I&O's: Vital Signs Temp Pulse Resp BP Pulse Ox 97.8 F 92 18 126/71 H 100 02/12/19 13:04 02/12/19 13:04 02/12/19 13:04 02/12/19 13:04 02/12/19 13:04 Oxygen Delivery Method Room Air Weight: 60.4 kg Body Mass Index (BMI) 24.3 Intake and Output for Last 24 Hours 02/10/19 02/11/19 02/12/19 23:59 23:59 23:59 Intake Total 33.33 / 33.33 Balance 33.33 / 33.33 General: Alert HEENT: Normocephalic Neck: Supple Lungs: Normal air movement Cardiovascular: Normal S1, Normal S2 Abdomen: Bowel Sounds Present Extremities: No cyanosis Neurological: - - Conscious, alert, AOA x3, CN II to XII grossly intact, power 5/5 both upper and lower extremities, plantars B/L flexor, no pronator drift, mild sensory loss left hand, no cerebellar signs, gait deferred, reflexes + B/L B/S/T/K/A, No NR, fundus not visualized Psych/Mental Status: Normal Affect Laboratory Results 02/12/19 14:20: WBC 6.6, RBC 4.93, Hgb 14.5, Hct 44.5, MCV 90.3, MCH 29.4, MCHC 32.6, RDW Std Deviation 39.8, RDW Coeff of Bridget 12.1, Plt Count 240, MPV 12.1 H, Immature Gran % (Auto) 0.300, Neut % (Auto) 70.1 H, Lymph % (Auto) 19.9, Mineral % (Auto) 8.0, Eos % (Auto) 1.2, Baso % (Auto) 0.5, Absolute Neuts (auto) 4.7, Absolute Lymphs (auto) 1.32, Nucleated RBC % 0 02/12/19 14:20: Sodium Pending, Potassium Pending, Chloride Pending, Carbon Dioxide Pending, Anion Gap Pending, BUN Pending, Creatinine Pending, Est GFR (MDRD) Af Amer Pending, Est GFR (MDRD) Non-Af Pending, BUN/Creatinine Ratio Pending, Glucose Pending, Calcium Pending, Total Bilirubin Pending, AST Pending, ALT Pending, Alkaline Phosphatase Pending, Total Protein Pending, Albumin Pending Current Medications Methylprednisolone 1,000 mg/ (Sodium Chloride) 116 mls @ 100 mls/hr IV X1 ONE Stop: 02/12/19 14:53 Last Admin: 02/12/19 14:29 Dose: 100 mls/hr Documented by: Sodium Chloride () 1,000 mls @ 1,000 mls/hr IV .Q1H ONE Stop: 02/12/19 14:39 Last Infusion: 02/12/19 14:30 Dose: 0 mls/hr Documented by: Assessment/Plan All Active Problems (Last Updated 02/12/19 @ 14:21 by Wu Dawson DO) Numbness (Acute) Exacerbation of multiple sclerosis (Acute) The patient is a 23 year old F with PMH RRMS on Ocrevus admitted with new onset numbness and visual blurring. Per patient she started having left hand numbness and forehead numbness about 3 to 4 days ago along with left visual blurring. Denies any focal motor weakness, painful vision loss, headache, dizziness, speech problems. She denies any fever, sick contact, urinary frequency, urgency or incontinence at present. Per patient she sees neurologist at and has been started on Ocrevus since December 2018. She was admitted to [facility] in July 2018 with left-sided paresthesias when she was initially diagnosed with MS. Impression MS exacerbation RRMS Plan -MRI brain with and without contrast, MRI C-spine with and without contrast -Solumedrol 1 g IV 3 to 5 days. Discussed with patient about doing IV steroids for 5 days but patient wants it only for 3 days. -Labs reviewed, check UA -On Ocrevus for MS -PT/OT/ST -GI/DVT prophylaxis -Fall precautions -Further medical management per hospitalist team -Please call with questions if any -Follow-up with her neurologist in 4-6 weeks -Thank you for allowing us to participate in patient's care and management This note has been generated using [employer] dictation software. It may contain incorrect words, spellings and punctuation that were not noted in the review of the note prior to signing
--- NOTE | 2019-02-12 14:38 | MRI_ITS ---
STUDY: MRI BRAIN WITH AND WITHOUT CONTRAST REASON FOR EXAM: Female, 23 years old. Multiple sclerosis. Left forehead numbness and left eye blurry vision. TECHNIQUE: Standardized multiplanar fat and water weighted pulse sequences were obtained. IV Dotarem 11 was administered for the contrast portion of the examination. COMPARISON: MRI brain 08/06/2018. FINDINGS: Several FLAIR/T2 hyperintense lesions are similar in number and distribution compared to the previous study. The acute edema and enhancement present on the previous study has resolved with no evidence of active demyelination today. The location of the lesions is compatible with multiple sclerosis, with lesions within the corpus callosum, and extending radially in a pericallosal distribution. Scattered smaller lesions are seen within the more peripheral white matter, and within the upper aspect of the right cerebellar hemisphere, within the more inferior and lateral right cerebellar hemisphere, and within the left middle cerebellar peduncle. No restricted diffusion, mass effect, acute edema, or enhancement. No mass, infarct, or hemorrhage. No hydrocephalus. Calvarium and extracranial soft tissues unremarkable. Mild mucosal thickening floor of the left maxillary sinus. Otherwise the paranasal sinuses, mastoid air cells, and middle ears are patent. MRI/Brain W/WO Contrast IMPRESSION: Sequela of previous demyelination. The number and distribution of plaques is similar to the previous study. There is no evidence of active demyelination. Electronically Signed: Kristian Olmos, at 1:28 EST Tel , Service support ,
[2019-02-12 14:43] VITALS: BMI 23.6
[2019-02-12 14:46] VITALS: BMI 23.6
[2019-02-12 14:46] LABS: ALB/GLOB Ratio 1.3 RATIO (0.9-2.4); AST(SGOT) 10 U/L (15-37); Alanine Aminotransfer ALT/SGPT 17 U/L (13-56); Albumin, Serum 4.8 g/dL (3.2-5.0); Alkaline Phosphatase 57 U/L (45-117); Anion Gap 9 (5-15); BUN 9 mg/dL (7-18); Calcium,Total 9.4 mg/dL (8.5-10.1); Chloride 105 mmol/L (98-107); Creatinine, Serum 0.75 mg/dL (0.55-1.02); EST Glomerular Filtration Rate 100 mL/min (>60); Est Glom Filt Rate - Afr Amer 121 mL/min (>60); Estimated Creatinine Clearance 90.69 ml/min; Globulin 3.8 g/dL (2.2-4.2); Glucose 78 mg/dL (74-106); Potassium 3.6 mmol/L (3.5-5.1); Protein, Total 8.6 g/dL (6.4-8.2); Sodium Level 141 mmol/L (136-145)
[2019-02-12 14:48] VITALS: BP 119/82; PULSE 64; RESP 16; TEMP 36.9; O2SAT 100
--- NOTE | 2019-02-12 14:48 | MRI_ITS ---
STUDY: MRI CERVICAL SPINE WITH AND WITHOUT CONTRAST REASON FOR EXAM: Female, 23 years old. Multiple sclerosis. Forehead and left hand numbness. Blurred vision left eye. TECHNIQUE: Standardized fat and water weighted pulse sequences were obtained in the sagittal and axial following administration of IV Dotarem 11. COMPARISON: 08/06/2018 MRI cervical spine. FINDINGS: Given differences in technique, there is no significant change in the T2/STIR bright lesion in the posterior aspect of the cervical spinal cord at the level of C3 and C4. This measures 1.2 cm craniocaudad and 0.6 cm in diameter. No associated enhancement or acute finding. No new cervical spinal cord lesions are evident. The remainder of the cervical spinal cord has normal contour and signal. No abnormal enhancement. Normal vertebrae, discs, and ligaments. No significant degenerative changes. Paraspinal soft tissues are normal MRI/Spine Cervical W/WO Contrast IMPRESSION: No acute findings. Unchanged chronic demyelinating plaque within the posterior cervical spinal cord at the C3 and C4 levels. No new lesions or evidence of active demyelination. Electronically Signed: Kristian Olmos, at 1:12 EST Tel , Service support ,
[2019-02-12 14:57] LABS: Internal QC Validated? YES +Cl - CLEAR BKGD; Pregnancy, Serum, hCG Quali. NEGATIVE Negative
[2019-02-12 15:00] VITALS: PULSE 72
[2019-02-12 15:19] LABS: Vitamin D,25 Hydroxy 27.6 ng/mL (29.95-100.01)
[2019-02-12 20:40] VITALS: BP 101/56; PULSE 94; RESP 16; TEMP 36.7; O2SAT 99
[2019-02-12 22:18] LABS: Bacteria 0 SEEN /hpf (None Seen); Mucous, Urine 0 SEEN /hpf (<or=2+); Red Blood Cells-Urine 0 SEEN /hpf (0-5); White Blood Cells 0 SEEN /hpf (0-5)
[2019-02-12 22:26] LABS: Color, Urine Yellow (Yellow); Glucose, Dipstick 1000 mg/dl (Normal); Ketone-Dipstick 15 mg/dl (Negative); Leukocyte Esterase-Dipstick Negative /ul (Negative); Nitrite-Dipstick Negative (Negative); Occult Blood-Urine Negative /ul (Negative); Protein-Dipstick Negative (Negative); Specific Gravity, Urine 1.015 (1.002-1.030); Urine Bilirubin Dipstick Negative (Negative); Urine Clarity Sl. Cloudy (Clear); Urine Urobilinogen Normal (Normal); Urine pH 6.5 (5.0 - 8.0)
[2019-02-12 22:31] LABS: Squamous Epithelial Cells - UA 0-5 SEEN /hpf (5-10)
[2019-02-13 02:40] VITALS: BP 99/64; PULSE 73; RESP 16; TEMP 36.3; O2SAT 100
--- NOTE | 2019-02-13 08:04 | PN.NEURO_ITS ---
Patient Problems: Active and Suspected Problems (Last Updated 02/12/19 @ 14:21 by Wu Dawson DO) Exacerbation of multiple sclerosis (Acute) Subjective: No issues overnight. Care discussed with nursing staff. MRI brain w/w/o contrast and MRI C spine w/w/o contrast- no new lesions, no active lesions, chronic demyelinating lesions noted as prior study. - Physical Exam Vitals/I&O's: Vital Signs Temp Pulse Resp BP Pulse Ox 97.4 F L 73 16 99/64 100 02/13/19 02:40 02/13/19 02:40 02/13/19 02:40 02/13/19 02:40 02/13/19 02:40 Oxygen Delivery Method Room Air Weight: 58.5 kg Body Mass Index (BMI) 23.6 Intake and Output for Last 24 Hours 02/11/19 02/12/19 02/13/19 23:59 23:59 23:59 Intake Total 1816.00 / 1816.00 Output Total 600 / 600 Balance 1216.00 / 1216.00 General: Alert HEENT: Normocephalic Neck: Supple Lungs: Normal air movement Cardiovascular: Normal S1, Normal S2 Abdomen: Bowel Sounds Present Extremities: No cyanosis Neurological: - - Conscious, alert, AOA x3, CN II to XII grossly intact, power 5/5 both upper and lower extremities, plantars B/L flexor, no pronator drift, mild sensory loss left hand, no cerebellar signs, gait deferred, reflexes + B/L B/S/T/K/A, No NR, fundus not visualized Psych/Mental Status: Normal Affect Laboratory Results 02/12/19 14:20: WBC 6.6, RBC 4.93, Hgb 14.5, Hct 44.5, MCV 90.3, MCH 29.4, MCHC 32.6, RDW Std Deviation 39.8, RDW Coeff of Bridget 12.1, Plt Count 240, MPV 12.1 H, Immature Gran % (Auto) 0.300, Neut % (Auto) 70.1 H, Lymph % (Auto) 19.9, [place] % (Auto) 8.0, Eos % (Auto) 1.2, Baso % (Auto) 0.5, Absolute Neuts (auto) 4.7, Absolute Lymphs (auto) 1.32, Nucleated RBC % 0 02/12/19 14:20: Sodium 141, Potassium 3.6, Chloride 105, Carbon Dioxide 27.0, Anion Gap 9, BUN 9, Creatinine 0.75, Estim Creat Clear Calc 90.69, Est GFR (MDRD) Af Amer 121, Est GFR (MDRD) Non-Af 100, BUN/Creatinine Ratio 12.0, Glucose 78, Calcium 9.4, Total Bilirubin 0.40, AST 10 L, ALT 17, Alkaline Phosphatase 57, Total Protein 8.6 H, Albumin 4.8, Globulin 3.8, Albumin/Globulin Ratio 1.3 02/12/19 14:20: Serum , Qual NEGATIVE 02/12/19 14:20: Vitamin D 25-Hydroxy 27.6 L 02/12/19 15:38: Vit D 1,25-Dihydroxy Pending 02/12/19 22:00: Urine Color Yellow, Urine Clarity Sl. Cloudy, Urine pH 6.5, Ur Specific [place] 1.015, Urine Protein Negative, Urine Glucose (UA) 1000 H, Urine Ketones 15 H, Urine Occult Blood Negative, Urine Nitrite Negative, Urine Bilirubin Negative, Urine Urobilinogen Normal, Ur Leukocyte Esterase Negative, Urine RBC 0 SEEN, Urine WBC 0 SEEN, Ur Squamous Epith Cells 0-5 SEEN, Urine Bacteria 0 SEEN, Urine Mucus 0 SEEN Current Medications Acetaminophen (Tylenol) 650 mg PO Q6H PRN PRN PRN Reason: Pain Score 1-3/Temp > 100.7 F Methylprednisolone 1,000 mg/ (Sodium Chloride) 116 mls @ 100 mls/hr IV DAILY LEENA Stop: 02/17/19 10:01 Melatonin (Melatonin) 3 mg PO QHS PRN PRN PRN Reason: INSOMNIA Ondansetron HCl (Zofran) 4 mg IV Q8H PRN PRN PRN Reason: NAUSEA/VOMITING Sodium Chloride () 10 - 40 ml IV UD PRN PRN Reason: SALINE FLUSH Medical Necessity - Tobacco Use Smoking Status: Never smoker Tobacco Use: Non-smoker Assessment/Plan All Active Problems (Last Updated 02/12/19 @ 14:21 by Wu Dawson DO) Numbness (Acute) Exacerbation of multiple sclerosis (Acute) The patient is a 23 year old F with PMH RRMS on Ocrevus admitted with new onset numbness and visual blurring. Per patient she started having left hand numbness and forehead numbness about 3 to 4 days ago along with left visual blurring. Denies any focal motor weakness, painful vision loss, headache, dizziness, speech problems. She denies any fever, sick contact, urinary frequency, urgency or incontinence at present. Per patient she sees neurologist at and has been started on Ocrevus since December 2018. She was admitted to [facility] in July 2018 with left-sided paresthesias when she was initially diagnosed with MS. Impression MS exacerbation RRMS Plan -MRI brain with and without contrast, MRI C-spine with and without contrast- reviewed- no change from previous studies, no active demyelination or enhancement, no new lesions per report -Solumedrol 1 g IV 3 to 5 days. Discussed with patient about doing IV steroids for 5 days but patient wants it only for 3 days. -Labs reviewed, check UA-negative -On Ocrevus for MS -PT/OT/ST -GI/DVT prophylaxis -Fall precautions -Further medical management per hospitalist team -Please call with questions if any -Follow-up with her neurologist in 4-6 weeks -Thank you for allowing us to participate in patient's care and management This note has been generated using [employer] dictation software. It may contain incorrect words, spellings and punctuation that were not noted in the review of the note prior to signing
[2019-02-13 09:19] VITALS: BP 109/55; PULSE 84; RESP 18; TEMP 36.7; O2SAT 98
[2019-02-13] MEDS: 0.9% Saline Lock 10 ML Syringe IV ×2 (10:20→20:07)
--- NOTE | 2019-02-13 10:40 | CASEMGMT ---
RN LIBERTY Face to Face with patient for initial transition planning/care coordination assessment. RN CM introduced self and role at [facility]. Patient lying in bed, alert and oriented. Patient willing to participate in assessment and is able to answer all questions appropriately. Care providers, pharmacy, and demographics verified. Patient wishes to discharge home, denies need for home health at this time. Patient states she has no further needs or concerns at this time. CM to follow for discharge planning needs that may arise. PCP: SOCRATES Beckman Specialists: Looking for new neurologist [facility]erred [facility]acy: [facility] Insurance: [employer] Prescription Benefit: yes Living Will/HPOA: none LNOK: parents Living Arrangements: Patient lives with parents in single story home. Patient independent at home. Transportation: Self/parents DME/HHC: Patient denies any DME or HHC Disposition Plan: Patient to discharge home with family support and follow-up plans in place. Yolette GOODWIN, RN, CM
--- NOTE | 2019-02-13 12:41 | PCM.PROGNOTE ---
Patient Problems: Active and Suspected Problems (Last Updated 02/12/19 @ 14:21 by Wu Dawson DO) Exacerbation of multiple sclerosis (Acute) Subjective: Patient was seen and examined today, I talked with her about her MS, I recommended an MS clinic in [place]-she states she wants to go to see a different neurologist. I gave her the address and phone number of this clinic. Patient has no complaints of any increased weakness she states that she would prefer her to only have 3 days of IV Solu-Medrol, she wants to be discharged tomorrow after her a.m. dose of Solu-Medrol. - Physical Exam Vitals/I&O's: Vital Signs Temp Pulse Resp BP Pulse Ox 98.1 F 84 18 109/55 L 98 02/13/19 09:19 02/13/19 09:19 02/13/19 09:19 02/13/19 09:19 02/13/19 09:19 Oxygen Delivery Method Room Air Weight: 58.5 kg Body Mass Index (BMI) 23.6 Intake and Output for Last 24 Hours 02/11/19 02/12/19 02/13/19 23:59 23:59 23:59 Intake Total 1816.00 / 1816.00 356 / 356 Output Total 600 / 600 Balance 1216.00 / 1216.00 356 / 356 General: Alert, Oriented x3, Cooperative, No apparent distress, Well developed HEENT: Atraumatic, PERRLA, EOMI, Normocephalic Oral: Moist Mucosa Neck: Supple, No Nuchal Rigidity, Trachea Midline, Thyroid Normal Size and Texture Lungs: Clear to auscultation, Normal air movement, No rhonchi, No wheeze, No rales Cardiovascular: Regular rate, Regular Rhythm, Normal S1, Normal S2, No murmurs, PMI Normal, No rub noted, No Gallop Abdomen: Bowel Sounds Present, Soft, Non Tender, Non-Distended Extremities: No clubbing, No cyanosis, No edema, Capillary Refill Less than 3 Seconds Skin: No rashes, No breakdown Musculoskeletal: No Tenderness to Palpation of Joints or Extremities Neurological: Cranial nerves II-XII grossly intact, Neuro grossly intact, Sensory exam intact to light touch and pain Psych/Mental Status: Normal Affect, Appropriate, Alert and oriented to time, place, person, mood and affect Laboratory Results 02/12/19 14:20: WBC 6.6, RBC 4.93, Hgb 14.5, Hct 44.5, MCV 90.3, MCH 29.4, MCHC 32.6, RDW Std Deviation 39.8, RDW Coeff of Bridget 12.1, Plt Count 240, MPV 12.1 H, Immature Gran % (Auto) 0.300, Neut % (Auto) 70.1 H, Lymph % (Auto) 19.9, [place] % (Auto) 8.0, Eos % (Auto) 1.2, Baso % (Auto) 0.5, Absolute Neuts (auto) 4.7, Absolute Lymphs (auto) 1.32, Nucleated RBC % 0 02/12/19 14:20: Sodium 141, Potassium 3.6, Chloride 105, Carbon Dioxide 27.0, Anion Gap 9, BUN 9, Creatinine 0.75, Estim Creat Clear Calc 90.69, Est GFR (MDRD) Af Amer 121, Est GFR (MDRD) Non-Af 100, BUN/Creatinine Ratio 12.0, Glucose 78, Calcium 9.4, Total Bilirubin 0.40, AST 10 L, ALT 17, Alkaline Phosphatase 57, Total Protein 8.6 H, Albumin 4.8, Globulin 3.8, Albumin/Globulin Ratio 1.3 02/12/19 14:20: Serum , Qual NEGATIVE 02/12/19 14:20: Vitamin D 25-Hydroxy 27.6 L 02/12/19 15:38: Vit D 1,25-Dihydroxy Pending 02/12/19 22:00: Urine Color Yellow, Urine Clarity Sl. Cloudy, Urine pH 6.5, Ur Specific [place] 1.015, Urine Protein Negative, Urine Glucose (UA) 1000 H, Urine Ketones 15 H, Urine Occult Blood Negative, Urine Nitrite Negative, Urine Bilirubin Negative, Urine Urobilinogen Normal, Ur Leukocyte Esterase Negative, Urine RBC 0 SEEN, Urine WBC 0 SEEN, Ur Squamous Epith Cells 0-5 SEEN, Urine Bacteria 0 SEEN, Urine Mucus 0 SEEN Current Medications Acetaminophen (Tylenol) 650 mg PO Q6H PRN PRN PRN Reason: Pain Score 1-3/Temp > 100.7 F Methylprednisolone 1,000 mg/ (Sodium Chloride) 116 mls @ 100 mls/hr IV DAILY LEENA Stop: 02/17/19 10:01 Last Infusion: 02/13/19 11:54 Dose: Infused Documented by: Melatonin (Melatonin) 3 mg PO QHS PRN PRN PRN Reason: INSOMNIA Ondansetron HCl (Zofran) 4 mg IV Q8H PRN PRN PRN Reason: NAUSEA/VOMITING Sodium Chloride () 10 - 40 ml IV UD PRN PRN Reason: SALINE FLUSH Last Admin: 02/13/19 10:20 Dose: 10 ml Documented by: Medical Necessity - Tobacco Use Smoking Status: Never smoker Tobacco Use: Non-smoker Assessment/Plan All Active Problems (Last Updated 02/12/19 @ 14:21 by Wu Dawson DO) Numbness (Acute) Exacerbation of multiple sclerosis (Acute) #1 flareup of multiple sclerosis-continue IV Solu-Medrol, again she would like to be discharged after she has 3 doses of Solu-Medrol tomorrow. Code Visit Inpatient E&M: 51088 Subs Hosp L2
[2019-02-13 13:30] VITALS: BP 111/72; PULSE 86; RESP 18; TEMP 36.8; O2SAT 96
--- NOTE | 2019-02-13 16:19 | CHAPLAIN ---
Type of Pastoral Visit __x_ Initial Visit ___ Follow-up Visit ___ On-call Visit ___ General Patient Visit ___ Spiritual Assessment ___ Family Conference ___ Bereavement ___ Rapid Response ___ Code Blue ___ Other (describe below) Pastoral Care Referral From _x__ Patient ___ Family ___ Nurse ___ Physician ___ Middleware Engineer ___ Psychological Tests Sales Agent ___ Other (describe below) Sacrament/Intervention ___ Active listening ___ Anointing ___ Sabianism ___ Bereavement ___ Communion ___ Claribel exploration ___ ___ Life review ___ Prayer ___ Reconciliation ___ Sacrament of Sick _x__ Supportive presence ___ Wedding ___ Other (describe below) Pastoral Comments
[2019-02-13 19:58] VITALS: BP 107/64; PULSE 82; RESP 16; TEMP 36.8; O2SAT 97
[2019-02-13] MEDS: MELATONIN 3 MG TABLET PO (20:07)
[2019-02-14 02:35] VITALS: BP 104/54; PULSE 71; RESP 16; TEMP 36.5; O2SAT 100
[2019-02-14 08:13] VITALS: BP 131/70; PULSE 62; RESP 16; TEMP 36.7; O2SAT 100
[2019-02-14 09:35] VITALS: PULSE 80
[2019-02-14] MEDS: 0.9% Saline Lock 10 ML Syringe IV ×2 (10:05→11:20)
--- NOTE | 2019-02-14 11:16 | DCINST_ITS ---
- Discharge Diagnoses Current Active Problems: Current Active and Chronic Problems (Last Updated 02/12/19 @ 14:21 by Wu Dawson DO) Exacerbation of multiple sclerosis (Acute) You will use the following diet at home:: No restrictions Your food should be the consistency of: Regular Your liquids should be the consistency of: Regular/Thin Discharge Activity: Return to Normal Activity Call your doctor if you observe: Fever of 101 or Higher, Numbness or Tingling, Shortness of breath, Dizziness, Fainting spells, Chest pain, Calf discomfort, Uncontrolled pain Additional Instructions: 1. I am sending you home on a Prednisone taper to hopefully decrease the soreness you get after abrupt discontinuation of solu- medrol. 2. You Vitamin D level is low. Vitamin D is necessary to absorb calci um from the GI tract and maintain good bone health. We noramlly get vitamin D from the sun....however, we don't see much of the sunin [place], [place] in the winter. The calcium is normal so you will just need Vitamin D and you will take it twice a day. Allergies/Adverse Reactions: Allergies codeine Allergy (Verified 02/12/19 13:07) Rash/vomiting Medications to take at Discharge Prednisone 10 mg PO UD #30 tab 02/14/19 The following prescriptions were given: Prednisone 10 mg PO UD #30 tab Transmission Status: Pending to [id number] Primary Care Physician: Yolette Beckman NP-C [Primary Care Provider] - Please follow up with your Primary Care Physician in: 1 week Test Results: Test results from this visit will be discussed in further detail at your follow- up appointment, if applicable. Proposed Discharge Date: 02/14/19
--- NOTE | 2019-02-14 11:23 | DS.PCM_ITS ---
Discharge Date and Diagnosis - Problem List Patient Problems: Active and Suspected Problems (Last Updated 02/12/19 @ 14:21 by Wu Dawson DO) Vitamin D deficiency (Acute) Exacerbation of multiple sclerosis (Acute) Date of Admission: 02/12/19 Date of Discharge: 02/14/19 - Primary Discharge Diagnosis Active and Suspected Problems (Last Updated 02/12/19 @ 14:21 by Wu Dawson DO) Exacerbation of multiple sclerosis (Acute) Vitamin D deficiency (Acute) - Secondary Discharge Diagnosis RRMS Hospital Course and Treatment Imaging Results: Clinical Impression(s) from Imaging Studies Brain MRI 02/12/19 14:38 IMPRESSION: Sequela of previous demyelination. The number and distribution of plaques is similar to the previous study. There is no evidence of active demyelination. Electronically Signed: Kristian Olmos, at 1:28 EST Tel , Service support , Cervical Spine MRI 02/12/19 14:48 IMPRESSION: No acute findings. Unchanged chronic demyelinating plaque within the posterior cervical spinal cord at the C3 and C4 levels. No new lesions or evidence of active demyelination. Electronically Signed: Kristian Olmos, at 1:12 EST Tel , Service support , Dr. José Miguel Lamb-neurology Operations: None Procedures: None Summary of Care Provided: The patient is a 23 year old F with a past medical history of relapsing and remitting multiple sclerosis treated with Ocrevus since october of 2018 who presented to the emergency department at [facility] on 02/12/2019 complaining of numbness of her forehead and LUE and blurred vision in the L eye. Vital signs at admission were unremarkable and she was afebrile with a pulse ox of 100% on room air. CBC was normal. CMP was unremarkable. She had a vitamin D level ordered and it was low at 27.6. Calcium was normal at 9.4. A UA had 0 WBCs and 0 RBCs per high-power field. She had an MRI of the brain and the cervical spine and this showed no new active MS lesions. She was seen in consultation by Dr. Lamb from neurology who recommended Solu- Medrol 1 g IV daily for 3 to 5 days. The patient wanted to limit the Solu- Medrol to 3 days. She received a third dose on 02/14/2019. She had no weakness at DC and denied any visual disturbance. She still had some residual numbness of the face on the left. She c/o soreness in the muscles of her neck and shoulder girdle which she states she gets when she is on high-dose intravenous Solu-Medrol. When the steroids are tapered post discharge the soreness is less. On 02/14/2019 she was afebrile with stable vital signs. Pulse ox was 99 to 100% on room air. She was discharged home with a prescription for prednisone 10 mg, #30, to be tapered over the next 12 days. She was also given a prescription for Vitamin D 1,000 mg ans instructed to take 1 BID. She will follow-up with her primary care provider in 1 week and with her neurologist in 6 weeks. PHYSICAL EXAM: GENERAL: alert, oriented X 3, Cooperative, NAD ORAL: moist mucosa, no mucosal lesions NECK: No JVD, supple, trachea midline LUNGS: CTA, symmetric chest expansion HEART: RRR, Normal S1 and S2, no rub, no gallop ABDOMEN: soft, NT, ND, BS present, no guarding with palpation EXTREMITIES: no edema, no cyanosis, no calf tenderness SKIN: No rashes, no breakdown NEUROLOGIC: Decreased sensation in the left face and left hand otherwise nonfocal. PSYCH: appropriate, normal affect, pleasant This note was generated with [employer] dictation software. It may contain incorrect words, spelling, and punctuation that were not noted in checking the note before signing. Patient Problems: Active and Suspected Problems (Last Updated 02/12/19 @ 14:21 by Wu Dawson DO) Vitamin D deficiency (Acute) Exacerbation of multiple sclerosis (Acute) - Physical Exam Vitals/I&O's: Vital Signs Temp Pulse Resp BP Pulse Ox 98.0 F 80 16 131/70 H 100 02/14/19 08:13 02/14/19 09:35 02/14/19 08:13 02/14/19 08:13 02/14/19 08:13 Oxygen Delivery Method Room Air Weight: 128 lb 15.527 oz Body Mass Index (BMI) 23.6 Intake and Output for Last 24 Hours 02/12/19 02/13/19 02/14/19 23:59 23:59 23:59 Intake Total 1816.00 / 1816.00 756 / 1276 936 / 936 Output Total 600 / 600 Balance 1216.00 / 1216.00 756 / 1276 936 / 936 Current Medications Acetaminophen (Tylenol) 650 mg PO Q6H PRN PRN PRN Reason: Pain Score 1-3/Temp > 100.7 F Methylprednisolone 1,000 mg/ (Sodium Chloride) 116 mls @ 100 mls/hr IV DAILY S [facility] Stop: 02/17/19 10:01 Last Infusion: 02/14/19 11:15 Dose: Infused Documented by: Melatonin (Melatonin) 3 mg PO QHS PRN PRN PRN Reason: INSOMNIA Last Admin: 02/13/19 20:07 Dose: 3 mg Documented by: Ondansetron HCl (Zofran) 4 mg IV Q8H PRN PRN PRN Reason: NAUSEA/VOMITING Sodium Chloride () 10 - 40 ml IV UD PRN PRN Reason: SALINE FLUSH Last Admin: 02/14/19 11:20 Dose: 10 ml Documented by: Discharge Activity: Return to Normal Activity Call your doctor if you observe: Fever of 101 or Higher, Numbness or Tingling, Shortness of breath, Dizziness, Fainting spells, Chest pain, Calf discomfort, Uncontrolled pain Home Medications: Medications to take at Discharge Cholecalciferol (VIT D3) [Vitamin D] 1,000 unit PO BID #60 tab 02/14/19 Prednisone 10 mg PO UD #30 tab 02/14/19 Following Prescrptions Were Given to Patient: Prednisone 10 mg PO UD #30 tab Transmission Status: Pending to [id number] Cholecalciferol (VIT D3) [Vitamin D] 1,000 unit PO BID #60 tab Transmission Status: Received by [id number] Primary Care Physician: Yolette Beckman NP-C [Primary Care Provider] - Please follow up with your Primary Care Physician in: 1 week Disposition: Home Minutes spent on discharge:: 30 Patient Condition:: Good Medical Necessity - Tobacco Use Smoking Status: Never smoker Tobacco Use: Non-smoker Meaningful Use Info Meaningful Use Diagnoses (Choose all that apply): None applicable Code Visit Inpatient E&M: 31122 Disch Hosp
[2019-02-14 11:34] VITALS: BP 113/65; PULSE 75; RESP 16; TEMP 36.9; O2SAT 100
== END 2019-02-14 12:30 | disposition home or self-care (01) | DRG 43 ==
LOC: ED 13:58 → MS3 14:24
PROVIDERS: Psychiatry & Neurology Neurology; Emergency Provider Emergency Medicine; Family Provider Nurse Practitioner Family; PCP Nurse Practitioner Family; Visit Provider Internal Medicine
DX: G35 Multiple sclerosis (principal); E55.9 Vitamin D deficiency, unspecified; Z82.0 Family history of epilepsy and other diseases of the nervous system
CPT/HCPCS: 70553; 72156; 80053; 81001; 82306; 82652; 84703; 85025; 99283; A9575; J7030; A4216; J2930

== ENCOUNTER 2019-02-17 05:33 | Emergency (ER) | payer MEDICAID, SELFPAY ==
[2019-02-17 05:34] VITALS: BP 116/76; PULSE 90; RESP 16; TEMP 36.9; O2SAT 99; BMI 24.6
[2019-02-17 05:42] VITALS: TEMP 36.9
--- NOTE | 2019-02-17 05:53 | ED.VIS.URI ---
History of Present Illness Chief Complaint: Cold Sx Informant: Patient, Family Onset: Days - 2 Context: Gradual Onset - Just after discharge from the hospital here Timing: Continuous Quality: cough, malaise Location: chest Current Severity: Moderate Maximum Severity: Moderate Associated Symptoms: Nausea, Shortness of Breath - once, resolved after coughed up mucous, Productive Cough - clear mucous. Negative for: Diarrhea, Hemoptysis Narrative: [place] like she had a subjective fever this morning prior to arrival, it was not treated prior to measuring her normal temperature here. Significantly malaise. Neck sore but she just received 3 days of IV steroids for an MS flare for which she was admitted here. She commonly has soreness in her neck after this. She was having numbness in her right arm and her head and although she still has some numbness in her head, though symptoms have improved. No chest pain or abdominal pain. Normal urination. - Past Medical History (1) Multiple sclerosis Status: Chronic (2) Vitamin D deficiency Status: Chronic Past Medical History - Allergies and Home Meds Allergies/Adverse Reactions: Allergies codeine Allergy (Verified 02/12/19 13:07) Rash/vomiting Primary Care Physician: Yolette Beckman NP-C [Primary Care Provider] - Lives: With Family Smoking Status: Never smoker - Family History Paternal Family History: Reports: - - father has Multiple Sclerosis Maternal Family History: Reports: No pertinent history Review of Systems General: Reports: Fever, Malaise, Subjective. Denies: Chills, Sweats Eyes: Denies: Visual changes - bilaterally, Diplopia ENT: Reports: Rhinorrhea, Sore throat - Gone now. Denies: Bilateral ear pain Cardiovascular: Denies: Chest pain, Palpitations Respiratory: Reports: Cough, Sputum. Denies: Dyspnea on exertion, Orthopnea Gastrointestinal: Reports: Nausea. Denies: Abdominal pain, Vomiting, Diarrhea, Melena, Hematochezia Genitourinary: Denies: Dysuria, Hematuria, Frequency Musculoskeletal: Reports: Neck pain. Denies: Back pain, Swelling, Extremity Pain Skin: Denies: Rash, Wounds Neurological: Reports: Numbness. Denies: Headache, Weakness Physical Exam Vital Signs/Narrative: Vital Signs Temp Pulse Resp BP Pulse Ox 02/17/19 05:42 98.4 F 02/17/19 05:34 98.4 F 90 16 116/76 99 Inital Vital Signs reviewed: Yes General: Well nourished, Well developed, - - Ill-appearing. No acute distress. Head: Normocephalic, Atraumatic Eyes: Perrl, EOMI Ears: Normal external canal, TM's clear, Left Mastoid Tenderness - Normal-appearing Nose: Normal Inspection, No Rhinorrhea. Negative for: Purulent Drainage Mouth/Throat: Normal Inspection, No Posterior Erythema, Airway Patent Tonsils: Negative for: Right Tonsilar Exudates, Left Tonsilar Exudates, Right Tonsilar Swelling, Left Tonsilar Swelling Neck: Supple, - - Diffuse neck tenderness. Supple, no meningismus. No palpable lymphadenopathy. Cardiovascular: Regular rate, Regular rhythm, No murmurs Respiratory: No distress, CTA bilaterally, Chest nontender Abdomen: Soft, Nontender, Nondistended, Normal bowel sounds Back: Nontender, Normal Inspection. Negative for: CVA tenderness Extremities: Nontender, No edema Skin: Normal color, No rash, No Trauma Neurological: Alert, Oriented x3, Cranial nerves II-XII grossly intact, Normal Strength, Normal Sensation Psychological: Normal affect, Normal Mood Diagnostic/Tx/Re-eval Clinical Impression(s) from Imaging Studies Chest X-Ray 02/17/19 06:18 IMPRESSION: Normal x-ray examination of the chest. Electronically Signed: Ros Monroe MD at 7:17 EST , Service support , - Medical Decision Making Influenza swab negative. Chest x-ray normal as above. With the hoarseness and the patient's symptoms, and a negative flu swab, I think this is very highly likely to be viral in etiology. I do not think antibiotics are indicated at this time. I discussed with the patient and her father and they are both in agreement with that, he is asking for a wait and see prescription for antibiotics which I am not comfortable with. Given that she is being seen in the emergency department, she really should be followed up with, as an outpatient especially if symptoms worsen, or she is always welcome to return to the ER. They understand that. I offered a prescription for an antitussive, she declines and states she does not think she really needs it. ED Disposition - Plan for ED Patient: Disposition: Home or Assisted Living Diagnosis: Viral upper respiratory infection Instructions: URI, Viral, No Abx (Adult) Referrals: Yolette Beckman NP-C [Primary Care Provider] - (2-5d)
[2019-02-17] MEDS: Ondansetron ODT 4 MG Tablet 8 MG PO (06:01)
--- NOTE | 2019-02-17 06:18 | RAD_ITS ---
STUDY: X-RAY CHEST REASON FOR EXAM: Female, 23 years old. Recent hospitalization for MS, now presenting with cough and nausea. TECHNIQUE: PA and lateral views of the chest. COMPARISON: 04/26/2018. FINDINGS: The lungs are clear and expanded. There is no demonstrated pleural abnormality. Normal size heart. Normal mediastinum and isaac. Normal visualized pulmonary arteries. Normal visualized aortic arch and descending thoracic aorta. Normal visualized thoracic spine. Normal visualized ribs, clavicles, and shoulders. There is no demonstrated abnormality of the visualized soft tissue structures of the upper abdomen. RAD/Chest PA and Lateral IMPRESSION: Normal x-ray examination of the chest. Electronically Signed: Ros Monroe MD at 7:17 EST , Service support ,
== END 2019-02-17 07:42 | disposition home or self-care (01) ==
PROVIDERS: Emergency Provider Emergency Medicine; Family Provider Nurse Practitioner Family; PCP Nurse Practitioner Family
DX: J06.9 Acute upper respiratory infection, unspecified (principal); G35 Multiple sclerosis; E55.9 Vitamin D deficiency, unspecified; Z88.5 Allergy status to narcotic agent
CPT/HCPCS: 71046; 87804; 99283

== ENCOUNTER 2020-01-16 09:18 | Inpatient (IN) | payer MEDICAID, SELFPAY ==
[2020-01-16 09:20] VITALS: BP 133/79; PULSE 82; RESP 16; TEMP 36.6; O2SAT 100; BMI 21.9
--- NOTE | 2020-01-16 09:36 | ED.DCSUM_ITS ---
History of Present Illness Chief Complaint: Fatigue Informant: Patient Onset: Days - 3 Narrative: Patient presents concerning for multiple sclerosis flare. Diagnosed back in October 2018. She receives Ocrevus infusions every 6 months last time this past August at [facility]. She states currently does not have a neurologist due to limitations in the area, she states they have not called back to get her in with a new physician. Reports 3 days ago noting some occipital headache taking Excedrin. Denies head trauma. Denies visual changes. States yesterday noted some vertigo symptoms with movement. Denies any sinus congestion. This morning noted some paresthesia left face left hand. There is no weakness. Similar flare when she was hospitalized a year ago January. Family history of multiple family members with MS. Prior similar symptoms: Yes Past Medical History - Allergies and Home Meds Allergies/Adverse Reactions: Allergies codeine Allergy (Verified 01/16/20 09:22) Rash/vomiting Primary Care Physician: Yolette Beckman PATIENT SUPPORT SPECIALIST, PATIENT SUPPORT SPECIALIST-C [Primary Care Provider] - Past Medical History: - - Multiple sclerosis Smoking Status: Never smoker - Family History Paternal Family History: Reports: - - father has Multiple Sclerosis Maternal Family History: Reports: No pertinent history Review of Systems General: Denies: Chills, Fever, Sweats Eyes: Denies: Visual changes - bilaterally, Diplopia ENT: Denies: Rhinorrhea, Sore throat Cardiovascular: Denies: Chest pain, Palpitations Respiratory: Denies: Dyspnea, Cough, Dyspnea on exertion Gastrointestinal: Denies: Abdominal pain, Nausea, Vomiting, Diarrhea, Melena, Hematochezia Genitourinary: Denies: Dysuria, Hematuria, Frequency Musculoskeletal: Denies: Back pain, Extremity Pain Skin: Denies: Rash, Wounds Neurological: Reports: Headache, Parasthesia. Denies: Weakness, Numbness Physical Exam Vital Signs/Narrative: Vital Signs Temp Pulse Resp BP Pulse Ox 01/16/20 09:20 97.9 F 82 16 133/79 H 100 Inital Vital Signs reviewed: Yes General: Well nourished, Well developed, No Acute Distress Head: Normocephalic, Atraumatic Eyes: Perrl, EOMI ENT: Moist mucous membranes, No rhinorrhea Neck: Supple, Nontender Cardiovascular: Regular rate, Regular rhythm, No murmurs Respiratory: No distress, CTA bilaterally, Chest nontender Abdomen: Soft, Nontender, Nondistended, Normal bowel sounds Back: Nontender, Normal Inspection Extremities: Nontender, No edema Skin: Normal color, No rash Neurological: Alert, Oriented x3, Cranial nerves II-XII grossly intact, Normal Strength, - - NIH of 1 for paresthesia of left face left hand. Psychological: Normal affect, Normal Mood Diagnostic/Tx/Re-eval Abnormal Lab Results 01/16/20 01/16/20 01/16/20 00:32 00:32 00:32 WBC 3.8 L RBC 4.88 Hgb 14.7 Hct 45.5 MCV 93.2 MCH 30.1 MCHC 32.3 RDW Std Deviation 40.0 RDW Coeff of Bridget 11.7 Plt Count 215 MPV 11.9 Immature Gran % (Auto) 0.500 Neut % (Auto) 62.2 Lymph % (Auto) 27.0 Bland % (Auto) 8.2 Eos % (Auto) 1.6 Baso % (Auto) 0.5 Absolute Neuts (auto) 2.4 Absolute Lymphs (auto) 1.02 Nucleated RBC % 0 Sodium 140 Potassium 3.8 Chloride 107 Carbon Dioxide 29.0 Anion Gap 4 L BUN 11 Creatinine 0.78 Estim Creat Clear Calc 86.44 Est GFR (MDRD) Af Amer 115 Est GFR (MDRD) Non-Af 95 BUN/Creatinine Ratio 14.1 Glucose 85 Calcium 9.0 Magnesium 2.0 Serum , Qual NEGATIVE Urine Color Urine Clarity Urine pH Ur Specific [place] Urine Protein Urine Glucose (UA) Urine Ketones Urine Occult Blood Urine Nitrite Urine Bilirubin Urine Urobilinogen Ur Leukocyte Esterase Urine RBC Urine WBC Ur Squamous Epith Cells Urine Bacteria Urine Mucus 01/16/20 09:56 WBC RBC Hgb Hct MCV MCH MCHC RDW Std Deviation RDW Coeff of Bridget Plt Count MPV Immature Gran % (Auto) Neut % (Auto) Lymph % (Auto) Bland % (Auto) Eos % (Auto) Baso % (Auto) Absolute Neuts (auto) Absolute Lymphs (auto) Nucleated RBC % Sodium Potassium Chloride Carbon Dioxide Anion Gap BUN Creatinine Estim Creat Clear Calc Est GFR (MDRD) Af Amer Est GFR (MDRD) Non-Af BUN/Creatinine Ratio Glucose Calcium Magnesium Serum , Qual Urine Color Straw Urine Clarity Clear Urine pH 7.0 Ur Specific [place] 1.010 Urine Protein Negative Urine Glucose (UA) Normal Urine Ketones Negative Urine Occult Blood Negative Urine Nitrite Negative Urine Bilirubin Negative Urine Urobilinogen Normal Ur Leukocyte Esterase Negative Urine RBC 0-5 SEEN Urine WBC 0 SEEN Ur Squamous Epith Cells 0-5 SEEN Urine Bacteria RARE Urine Mucus 0 SEEN - Medical Decision Making Patient NIH of 1 for paresthesia left face left hand. No meningismus with her headache. With her MS history, similar symptoms in the past more concerned of an MS flare versus stroke symptoms. I did check labs which are stable. I had specialist on-call consult with neurology who evaluate the patient agrees that more likely MS flare not stroke. Therefore, with diagnosis more concerning for MS flare, not TPA candidate. Recommends high-dose steroids of 1 g IV for 3 days then a taper. Recommend MRI of the brain with and without contrast as an inpatient. Discussed plan with patient. Will discuss with hospitalist for admission. 1150: I spoke with Dr. Roman, updated and will admit the patient to the medical floor. MRI ordered from the emergency department. ED Disposition - Plan for ED Patient: Disposition: Acute Care Hospital [facility] Diagnosis: Exacerbation of multiple sclerosis, Paresthesia Referrals: Yolette Beckman NP, PATIENT SUPPORT SPECIALIST-C [Primary Care Provider] -
--- NOTE | 2020-01-16 09:40 | TELEMED_ITS ---
[facility] Tele[facility] has confirmed receipt of a request for visit. This document confirms receipt of the order initiating the consult. To find the results of the consultation, please view the patient's reports for the scanned Telemed Consult.
[2020-01-16 10:02] LABS: Color, Urine Straw (Yellow); Glucose, Dipstick Normal (Normal); Ketone-Dipstick Negative (Negative); Leukocyte Esterase-Dipstick Negative /ul (Negative); Mucous, Urine 0 SEEN /hpf (<or=2+); Nitrite-Dipstick Negative (Negative); Occult Blood-Urine Negative /ul (Negative); Protein-Dipstick Negative (Negative); Urine Bilirubin Dipstick Negative (Negative); Urine Clarity Clear (Clear); Urine Urobilinogen Normal (Normal); White Blood Cells 0 SEEN /hpf (0-5)
[2020-01-16 10:03] LABS: Absolute Lymphocyte Count 1.02 X10^3/uL (0.83-4.51); Absolute Neutrophil Count 2.4 X10^3/uL (2.0-7.7); Basophil# 0.02 X10^3/uL; Basophil% 0.5 % (0-1); Eosinophil# 0.06 X10^3/uL; Eosinophils% 1.6 % (0-5); Hematocrit 45.5 % (37-47); Hemoglobin 14.7 g/dL (12.0-15.0); Lymphocyte # 1.02 X10^3/ul (4.0); Mean Corp Hgb Conc 32.3 g/dL (32-36); Mean Corpuscular Hgb 30.1 pg (27.0-32.0); Mean Corpuscular Volume 93.2 fL (81-99); Mean Platelet Vol. 11.9 fl (6.2-12.0); Monocyte# 0.31 X10^3/uL; Monocyte% 8.2 % (0-10); NRBC Flagged by Analyzer 0 % (0-5); Neutrophil # 2.35 X10^3/uL (2.7-7.7); Neutrophil % 62.2 % (47-70); Platelet Count 215 K/mm3 (150-450); RBC Distribution Width CV 11.7 % (11.6-14.6); Red Blood Count 4.88 M/mm3 (4.2-5.4); White Blood Count 3.8 K/mm3 (4.4-11.0)
[2020-01-16 10:10] LABS: Bacteria RARE /hpf (None Seen); Red Blood Cells-Urine 0-5 SEEN /hpf (0-5); Squamous Epithelial Cells - UA 0-5 SEEN /hpf (5-10)
[2020-01-16 10:11] LABS: Internal QC Validated? YES +Cl - CLEAR BKGD; Pregnancy, Serum, hCG Quali. NEGATIVE Negative
[2020-01-16 10:16] LABS: Anion Gap 4 (5-15); BUN 11 mg/dL (7-18); BUN/Creat Ratio 14.1 RATIO (10-20); Chloride 107 mmol/L (98-107); Creatinine, Serum 0.78 mg/dL (0.55-1.02); EST Glomerular Filtration Rate 95 mL/min (>60); Est Glom Filt Rate - Afr Amer 115 mL/min (>60); Estimated Creatinine Clearance 86.44 ml/min; Glucose 85 mg/dL (74-106); Potassium 3.8 mmol/L (3.5-5.1); Sodium Level 140 mmol/L (136-145)
--- NOTE | 2020-01-16 11:52 | MRI_ITS ---
STUDY: MRI BRAIN WITH AND WITHOUT CONTRAST REASON FOR EXAM: Female, 24 years old. ms, h/a x 3 days, lt facial/hand numbness TECHNIQUE: Standardized multiplanar fat and water weighted pulse sequences were obtained. IV 10cc dotarem was administered for the contrast portion of the examination. COMPARISON: 02/12/2019 FINDINGS: Normal size of the ventricles and extra-axial spaces for the patient''s age. There is no change in a punctate areas of hyperintensity within the periventricular and subcortical white matter consistent with known demyelinating disease (multiple sclerosis). This most prominent focus measures 6 mm within the superior aspect of the right hemisphere of the cerebellum and is unchanged. No contrast enhancement of these plaques. There is no evidence for recent intracranial ischemia or other cause of cytotoxic edema on diffusion weighted imaging (DWI). Normal T2* images of the brain without demonstrated susceptibility artifact. There is no demonstrated hemosiderin stain. Normal bilateral basal ganglia. Normal thalami. There is no extra-axial fluid accumulation. Normal flow voids within the major intracranial circulation suggesting patency by spin echo criteria. Normal venous enhancement. There is no enhancing intra-axial or extra-axial abnormality. Normal sella turcica, pituitary gland, infundibular stalk, optic chiasm and hypothalamus. Normal tectal plate and pineal gland. Normal midbrain, gopi and medulla. Normal cerebellum. Normal basal cisterns. Normal bilateral temporal bones. Normal bilateral internal auditory canals. No demonstrated orbital abnormality, within the constraints of a routine brain study. Normal visualized paranasal sinuses. Normal calvarium and skull base. Normal visualized soft tissue structures. Normal visualized upper cervical spine. MRI/Brain W/WO Contrast IMPRESSION: No change in known multiple sclerosis without contrast enhancing plaque. Electronically Signed: Gonzalo Wyatt MD at 13:45 EDT Tel , Service support ,
[2020-01-16] MEDS: Acetaminophen 500 MG Tablet 1000 MG PO (12:21)
[2020-01-16 13:00] VITALS: BMI 22.5
[2020-01-16 13:21] VITALS: BP 128/47; PULSE 85; RESP 16; TEMP 36.8; O2SAT 100
[2020-01-16 13:30] VITALS: BP 117/71; PULSE 82; RESP 18; TEMP 36.7; O2SAT 95
[2020-01-16 13:37] VITALS: BMI 22.5
--- NOTE | 2020-01-16 17:16 | PCM.HP.STD ---
History of Present Illness Date of Admission: 01/16/20 Chief Complaint: Numbness in her left side of her face as well as numbness, tingling, and weakness in her left upper extremity The patient is a 24 year old F with PMH as below presents to the hospital with acute onset numbness in her left face as well as in her left upper extremity. She also has some weakness in the upper lip and her left upper extremity. She states that she has a history of relapsing remitting multiple sclerosis which was diagnosed a year ago. At that time when she was diagnosed with her MS, she had left-sided symptoms as well. She denies any recent illness, no upper respiratory infection she denies any UTI or burning with urination. No fevers or chills. However for the last 3 days she has had an occipital headache. In the ER [facility] neurology was consulted and felt that the patient would benefit from 1 g of Solu-Medrol daily for 3 days and then to be discharged home if symptoms have improved. She has had a flareup of her MS about a year ago. A MRI with and without contrast of her brain was obtained in the ER and did not show a new plaque likely consistent with a pseudoexacerbation of her MS. Past Medical History Past Medical History (Chronic Problems): Chronic Problems (Last Updated 02/12/19 @ 14:[address] Wu Dawson DO) Multiple sclerosis (Chronic) Vitamin D deficiency (Chronic) Medical History: Medical History (Last Updated 02/12/19 @ 14:[address] Wu Dawson DO) Multiple sclerosis G35 c section Allergies codeine Allergy (Verified 01/16/20 09:22) Rash/vomiting Home Medications: Ambulatory Orders Medication Instructions Recorded NK 01/16/20 Surgical History: Surgical History (Last Updated 03/08/17 @ 13:21 by Lesvia Silva) S/P removal of left ovary Z90.721 Surgical History: no surgical history Psychiatric History: No pertinent psych hx MEDICAL I D SALES History: No pertinent MEDICAL I D SALES history Smoking Status: Never smoker Tobacco Use: Cigarettes Alcohol: None Drugs: None - *Family History Paternal History Items: - - father has Multiple Sclerosis Maternal History Items: No pertinent history Review of Systems Constitutional: Denies: Chills, Fever, Weight Change HEENT: Denies: Head Aches, Sinus Congestion, Sinus Drainage Cardiovascular: Denies: Chest Pain, Palpitations Respiratory: Denies: Cough, Shortness of breath at rest, Sputum production Gastrointestinal: Denies: Abdominal Pain, Nausea, Vomiting Genitourinary: Denies: Dysuria Musculoskeletal: Denies: Joint Pain, Joint Tenderness Skin: Denies: Rash, Wounds Neurological: Reports: Focal weakness, Numbness, Tingling. Denies: Change in Speech, Slurred speech Psychiatric: Denies: Anxiety, Depression, Homicidal Ideations, Suicidal Ideations Hematologic/ Lymphatic: Denies: Easy Bruising, Easy Bleeding VTE Information - Inpt Only VTE Present on Admission: No Patient Problems: Active and Suspected Problems (Last Updated 02/12/19 @ 14:[address] Wu Dawson, DO) Paresthesia (Acute) Exacerbation of multiple sclerosis (Acute) - Physical Exam Vitals/I&O's: Vital Signs Temp Pulse Resp BP Pulse Ox 98.1 F 82 18 117/71 95 01/16/20 13:30 01/16/20 13:30 01/16/20 13:30 01/16/20 13:30 01/16/20 13:30 Oxygen Delivery Method Room Air Weight: 123 lb 3.814 oz Body Mass Index (BMI) 22.5 Intake and Output for Last 24 Hours 01/14/20 01/15/20 01/16/20 23:59 23:59 23:59 Intake Total 116 / 116 Balance 116 / 116 General: Alert, Oriented x3, Cooperative, No apparent distress HEENT: Atraumatic, PERRLA, EOMI, Normocephalic Oral: Moist Mucosa Neck: Supple, No JVD Lungs: Clear to auscultation, Normal air movement, No rhonchi, No wheeze, No rales, Diminished Cardiovascular: Regular rate, Regular Rhythm, Normal S1, Normal S2, No murmurs Abdomen: Soft, Non Tender, Non-Distended, No Hepato-splenomegaly Extremities: No edema, Capillary Refill Less than 3 Seconds Skin: No rashes, No breakdown Neurological: - - Slight numbness on her left face as well as her left upper extremity. Her left upper extremity is 4+ out of 5 in strength compared to her right upper extremity Psych/Mental Status: Normal Affect, Appropriate Laboratory Results 01/16/20 00:32: WBC 3.8 L, RBC 4.88, Hgb 14.7, Hct 45.5, MCV 93.2, MCH 30.1, MCHC 32.3, RDW Std Deviation 40.0, RDW Coeff of Bridget 11.7, Plt Count 215, MPV 11.9, Immature Gran % (Auto) 0.500, Neut % (Auto) 62.2, Lymph % (Auto) 27.0, [place] % (Auto) 8.2, Eos % (Auto) 1.6, Baso % (Auto) 0.5, Absolute Neuts (auto) 2.4, Absolute Lymphs (auto) 1.02, Nucleated RBC % 0 01/16/20 00:32: Sodium 140, Potassium 3.8, Chloride 107, Carbon Dioxide 29.0, Anion Gap 4 L, BUN 11, Creatinine 0.78, Estim Creat Clear Calc 86.44, Est GFR (MDRD) Af Amer 115, Est GFR (MDRD) Non-Af 95, BUN/Creatinine Ratio 14.1, Glucose 85, Calcium 9.0, Magnesium 2.0 01/16/20 00:32: Serum , Qual NEGATIVE 01/16/20 09:56: Urine Color Straw, Urine Clarity Clear, Urine pH 7.0, Ur Specific [place] 1.010, Urine Protein Negative, Urine Glucose (UA) Normal, Urine Ketones Negative, Urine Occult Blood Negative, Urine Nitrite Negative, Urine Bilirubin Negative, Urine Urobilinogen Normal, Ur Leukocyte Esterase Negative, Urine RBC 0-5 SEEN, Urine WBC 0 SEEN, Ur Squamous Epith Cells 0-5 SEEN, Urine Bacteria RARE, Urine Mucus 0 SEEN Current Medications Methylprednisolone 1,000 mg/ (Sodium Chloride) 116 mls @ 100 mls/hr IV DAILY LEENA Stop: 01/19/20 10:01 Sodium Chloride (0.9% Saline Lock 10 Ml Syringe) 10 - 40 ml IV UD PRN PRN Reason: SALINE FLUSH Assessment/Plan All Active Problems (Last Updated 02/12/19 @ 14:[address] Wu Dawson, DO) Paresthesia (Acute) Numbness (Acute) Exacerbation of multiple sclerosis (Acute) 1. MS flare versus pseudoexacerbation secondary to occipital headache -MRI with and without contrast of her brain was negative for new MS plaque -[facility] neurology evaluated her in the ER and did not feel that a taper on discharge would be necessary as it has not demonstrated significant benefit -She is on Ocrevus every 6 months. She does have a neurologist at the [facility] however she is unhappy with the care as she states that they do not call her back immediately and she is looking for a more local neurologist -She states that she has an extensive family history of MS on her father's side and they are all of controlled either with a single medication or some without any medication at all. -No signs or symptoms of an acute infection which can exacerbate her MS, however she is having a headache and she states that the last time she had a flare she was also having a headache at that time. She may be having a migraine induced exacerbation -We will continue with 1 g of Solu-Medrol daily and if symptoms resolve discharge her to the care of an outpatient neurologist closer to home DVT: Ambulation Inpatient E&M: 18632 Init Hosp L2
[2020-01-16 20:00] VITALS: BP 103/59; PULSE 69; RESP 16; TEMP 36.7; O2SAT 98
[2020-01-17] MEDS: Acetaminophen 325 MG Tablet 650 MG PO ×3 (01:57→18:05)
[2020-01-17 01:59] VITALS: BP 97/55; PULSE 72; RESP 18; TEMP 36.3; O2SAT 99
[2020-01-17 09:00] VITALS: BP 103/57; PULSE 68; RESP 16; TEMP 37.1; O2SAT 100
--- NOTE | 2020-01-17 09:41 | PN_ITS ---
Patient Problems: Active and Suspected Problems (Last Updated 02/12/19 @ 14:[address] Wu Dawson, DO) Paresthesia (Acute) Exacerbation of multiple sclerosis (Acute) Subjective: She is improving, her left upper extremity weakness is back to baseline and her numbness is improving in her face Vitals/I&O's: Vital Signs Temp Pulse Resp BP Pulse Ox 98.7 F 68 16 103/57 L 100 01/17/20 09:00 01/17/20 09:00 01/17/20 09:00 01/17/20 09:00 01/17/20 09:00 Oxygen Delivery Method Room Air Weight: 123 lb 3.814 oz Body Mass Index (BMI) 22.5 Intake and Output for Last 24 Hours 01/15/20 01/16/20 01/17/20 23:59 23:59 23:59 Intake Total 416 / 416 Balance 416 / 416 General: Alert, Oriented x3, Cooperative, No apparent distress HEENT: Atraumatic, PERRLA, EOMI, Normocephalic Oral: Moist Mucosa Neck: Supple, No JVD Lungs: Clear to auscultation, Normal air movement, No rhonchi, No wheeze, No rales, Diminished Cardiovascular: Regular rate, Regular Rhythm, Normal S1, Normal S2, No murmurs Abdomen: Soft, Non Tender, Non-Distended, No Hepato-splenomegaly Extremities: No edema, Capillary Refill Less than 3 Seconds Skin: No rashes, No breakdown Neurological: - - Slight numbness on her left face as well as her left upper extremity which is improving. Her left upper extremity is 4+ out of 5 in strength compared to her right upper extremity is baseline Psych/Mental Status: Normal Affect, Appropriate Laboratory Results 01/16/20 00:32: WBC 3.8 L, RBC 4.88, Hgb 14.7, Hct 45.5, MCV 93.2, MCH 30.1, MCHC 32.3, RDW Std Deviation 40.0, RDW Coeff of Bridget 11.7, Plt Count 215, MPV 11.9, Immature Gran % (Auto) 0.500, Neut % (Auto) 62.2, Lymph % (Auto) 27.0, [place] % (Auto) 8.2, Eos % (Auto) 1.6, Baso % (Auto) 0.5, Absolute Neuts (auto) 2.4, Absolute Lymphs (auto) 1.02, Nucleated RBC % 0 01/16/20 00:32: Sodium 140, Potassium 3.8, Chloride 107, Carbon Dioxide 29.0, Anion Gap 4 L, BUN 11, Creatinine 0.78, Estim Creat Clear Calc 86.44, Est GFR (MDRD) Af Amer 115, Est GFR (MDRD) Non-Af 95, BUN/Creatinine Ratio 14.1, Glucose 85, Calcium 9.0, Magnesium 2.0 01/16/20 00:32: Serum , Qual NEGATIVE 01/16/20 09:56: Urine Color Straw, Urine Clarity Clear, Urine pH 7.0, Ur Specific [place] 1.010, Urine Protein Negative, Urine Glucose (UA) Normal, Urine Ketones Negative, Urine Occult Blood Negative, Urine Nitrite Negative, Urine Bilirubin Negative, Urine Urobilinogen Normal, Ur Leukocyte Esterase Negative, Urine RBC 0-5 SEEN, Urine WBC 0 SEEN, Ur Squamous Epith Cells 0-5 SEEN, Urine Bacteria RARE, Urine Mucus 0 SEEN Current Medications Acetaminophen (Acetaminophen 325 Mg Tablet) 650 mg PO Q6H PRN PRN PRN Reason: Pain 1-10 or Fever Last Admin: 01/17/20 09:38 Dose: 650 mg Documented by: Methylprednisolone 1,000 mg/ (Sodium Chloride) 116 mls @ 100 mls/hr IV DAILY LEENA Stop: 01/19/20 10:01 Sodium Chloride (0.9% Saline Lock 10 Ml Syringe) 10 - 40 ml IV UD PRN PRN Reason: SALINE FLUSH STROKE Vital Signs/Narrative: Vital Signs Temp Pulse Resp BP Pulse Ox 01/17/20 09:00 98.7 F 68 16 103/57 L 100 Medical Necessity - Tobacco Use Smoking Status: Never smoker Tobacco Use: Cigarettes Assessment/Plan All Active Problems (Last Updated 02/12/19 @ 14:[address] Wu Dawson, DO) Paresthesia (Acute) Numbness (Acute) Exacerbation of multiple sclerosis (Acute) 1. MS flare versus pseudoexacerbation secondary to occipital headache -MRI with and without contrast of her brain was negative for new MS plaque -[facility] neurology evaluated her in the ER and did not feel that a taper on discharge would be necessary as it has not demonstrated significant benefit -She is on Ocrevus every 6 months. She does have a neurologist at the [facility] however she is unhappy with the care as she states that they do not call her back immediately and she is looking for a more local neurologist -She states that she has an extensive family history of MS on her father's side and they are all of controlled either with a single medication or some without any medication at all. -No signs or symptoms of an acute infection which can exacerbate her MS, however she is having a headache and she states that the last time she had a flare she was also having a headache at that time. She may be having a migraine induced exacerbation when she is continue to have the headache therefore we will try her on some fluids in case she is dehydrated as she states that her urine does appear to be a little bit concentrated -We will continue with 1 g of Solu-Medrol daily and if symptoms resolve discharge her to the care of an outpatient neurologist closer to home DVT: Ambulation Inpatient E&M: 04027 Subs Hosp L2
[2020-01-17] MEDS: 0.9% Normal Saline 1,000 ML 125 ML IV (10:08)
--- NOTE | 2020-01-17 10:10 | CASEMGMT ---
RN CM Face to Face with patient for initial transition planning/care coordination assessment. RN CM introduced self and role at [facility]. Patient lying in bed, alert and oriented. Patient willing to participate in assessment and is able to answer all questions appropriately. Care providers, pharmacy, and demographics verified. Patient wishes to discharge home, denies need for home health at this time. Patient states he has no further needs or concerns at this time. CM to follow for discharge planning needs that may arise. PCP: Yolette Beckman NP Specialists: none Preferred Pharmacy: [facility] Insurance: [employer] Prescription Benefit: yes Living Will/HPOA:none LNOK: parents Living Arrangements: Patient lives with parents in a single story home with 3 steps to enter the home. Patient states that she is independent at home. Transportation: self/parents DME/HHC: Patient denies DME or previous HHC. Disposition Plan: Patient to discharge home with family support and follow-up plans in place. Yolette GOODWIN, RN, CM
[2020-01-17] MEDS: 0.9% Saline Lock 10 ML Syringe IV ×2 (12:18→18:47)
[2020-01-17] MEDS: Ketorolac 15 MG/ML Vial IV (12:19)
[2020-01-17] MEDS: Ondansetron 4 MG/2 ML Vial IV (18:47)
[2020-01-17 19:00] VITALS: BP 102/62; PULSE 66; RESP 18; TEMP 36.7; O2SAT 99
[2020-01-17] MEDS: SUMAtriptan 6 MG/0.5 ML Vial SC (20:25)
[2020-01-18 02:09] VITALS: BP 102/48; PULSE 57; RESP 18; TEMP 36.6; O2SAT 96
[2020-01-18 08:12] VITALS: BP 98/65; PULSE 70; RESP 18; TEMP 36.6; O2SAT 98
--- NOTE | 2020-01-18 10:01 | PCM.DC ---
- Discharge Diagnoses Current Active Problems: Current Active and Chronic Problems (Last Updated 02/12/19 @ 14:[address] Wu Dawson DO) Paresthesia (Acute) Exacerbation of multiple sclerosis (Acute) You will use the following diet at home:: Regular Your food should be the consistency of: Regular Your liquids should be the consistency of: Regular/Thin Discharge Activity: Return to Normal Activity Call your doctor if you observe: Fever of 101 or Higher, Shortness of breath, Dizziness, Fainting spells, Swelling in the ankles, Chest pain, Increased palpitations (irregular heartbeat) Allergies/Adverse Reactions: Allergies codeine Allergy (Verified 01/16/20 09:22) Rash/vomiting Medications to take at Discharge NK 01/16/20 Primary Care Physician: Yolette Beckman NP, CHIEF MECHANICAL OFFICER-C [Primary Care Provider] - Please follow up with your Primary Care Physician in: 3-5 days Test Results: Test results from this visit will be discussed in further detail at your follow-up appointment, if applicable. Please Follow Up With: Justin Tucker MD When: 4 weeks
[2020-01-18 14:14] VITALS: BP 105/66; PULSE 68; RESP 18; TEMP 37.2; O2SAT 98
--- NOTE | 2020-01-18 16:39 | DS.PCM_ITS ---
Discharge Date and Diagnosis - Problem List Patient Problems: Active and Suspected Problems (Last Updated 02/12/19 @ 14:[address] Wu Dawson DO) Paresthesia (Acute) Exacerbation of multiple sclerosis (Acute) Date of Admission: 01/16/20 Date of Discharge: 01/18/20 - Primary Discharge Diagnosis Acute Problems: Active Problems (Last Updated 02/12/19 @ 14:[address] Wu Dawson DO) Paresthesia (Acute) Exacerbation of multiple sclerosis (Acute) - Secondary Discharge Diagnosis Chronic Problems: Chronic Problems (Last Updated 02/12/19 @ 14:[address] Wu Dawson DO) Multiple sclerosis (Chronic) Vitamin D deficiency (Chronic) Hospital Course and Treatment Imaging Results: Clinical Impression(s) from Imaging Studies Brain MRI 01/16/20 11:52 IMPRESSION: No change in known multiple sclerosis without contrast enhancing plaque. Electronically Signed: Gonzalo Wyatt MD at 13:45 EDT Tel , Service support , Consults: [facility] Neurology Operations: None Procedures: None Summary of Care Provided: Per HPI: The patient is a 24 year old F with PMH as below presents to the hospital with acute onset numbness in her left face as well as in her left upper extremity. She also has some weakness in the upper lip and her left upper extremity. She states that she has a history of relapsing remitting multiple sclerosis which was diagnosed a year ago. At that time when she was diagnosed with her MS, she had left-sided symptoms as well. She denies any recent illness, no upper respiratory infection she denies any UTI or burning with urin ation. No fevers or chills. However for the last 3 days she has had an occipital headache. In the ER [facility] neurology was consulted and felt that the patient would benefit from 1 g of Solu-Medrol daily for 3 days and then to be discharged home if symptoms have improved. She has had a flareup of her MS about a year ago. A MRI with and without contrast of her brain was obtained in the ER and did not show a new plaque likely consistent with a pseudoexacerbation of her MS. Hospital Course: 1. MS flare versus pseudoexacerbation secondary to occipital headache -MRI with and without contrast of her brain was negative for new MS plaque -[facility] neurology evaluated her in the ER and did not feel that a taper on discharge would be necessary as it has not demonstrated significant benefit -She is on Ocrevus every 6 months. She does have a neurologist at the [facility] however she is unhappy with the care as she states that they do not call her back immediately and she is looking for a more local neurologist -She states that she has an extensive family history of MS on her father's side and they are all of controlled either with a single medication or some without any medication at all. -No signs or symptoms of an acute infection which can exacerbate her MS, however she is having a headache and she states that the last time she had a flare she was also having a headache at that time. She may be having a migraine induced pseudoexacerbation, she was given Toradol yesterday followed by Imitrex and Imitrex relieved her pain and at the time that her pain stopped so did her numbness in her face -She received 1 g of Solu-Medrol daily for 3 days and since her symptoms have resolved she is clear for discharge home. I did discuss with her the discharge plan and she expressed understanding the risk and benefits of going home. Nursing staff also found the number for neurology and hopefully she will be able to have a better follow-up closer to home. Patient Problems: Active and Suspected Problems (Last Updated 02/12/19 @ 14:[address] Wu Dawson, DO) Paresthesia (Acute) Exacerbation of multiple sclerosis (Acute) - Physical Exam Vitals/I&O's: Vital Signs Temp Pulse Resp BP Pulse Ox 98.9 F 68 18 105/66 98 01/18/20 14:14 01/18/20 14:14 01/18/20 14:14 01/18/20 14:14 01/18/20 14:14 Oxygen Delivery Method Room Air Weight: 123 lb 3.814 oz Body Mass Index (BMI) 22.5 Intake and Output for Last 24 Hours 01/16/20 01/17/20 01/18/20 23:59 23:59 23:59 Intake Total 416 / 416 1866 / 1866 416 / 416 Balance 416 / 416 1866 / 1866 416 / 416 General: Alert, Oriented x3, Cooperative, No apparent distress HEENT: Atraumatic, PERRLA, EOMI, Normocephalic Oral: Moist Mucosa Neck: Supple, No JVD Lungs: Clear to auscultation, Normal air movement, No rhonchi, No wheeze, No rales Cardiovascular: Regular rate, Regular Rhythm, Normal S1, Normal S2, No murmurs Abdomen: Soft, Non Tender, Non-Distended, No Hepato-splenomegaly Extremities: No edema, Capillary Refill Less than 3 Seconds Skin: No rashes, No breakdown Neurological: - -No facial numbness. Her left upper extremity is 4+ out of 5 in strength compared to her right upper extremity is baseline Psych/Mental Status: Normal Affect, Appropriate Discharge Activity: Return to Normal Activity Call your doctor if you observe: Fever of 101 or Higher, Shortness of breath, Dizziness, Fainting spells, Swelling in the ankles, Chest pain, Increased palpitations (irregular heartbeat) Home Medications: Medications to take at Discharge NK 01/16/20 Primary Care Physician: Yolette Beckman PROJECT CONTROLS SCHEDULER, PROJECT CONTROLS SCHEDULER-C [Primary Care Provider] - Please follow up with your Primary Care Physician in: 3-5 days Please Follow Up With: Justin Tucker MD When: 4 weeks Disposition: Home Minutes spent on discharge:: 35 Patient Condition:: Stable Medical Necessity - Tobacco Use Smoking Status: Never smoker Tobacco Use: Cigarettes Meaningful Use Info Meaningful Use Diagnoses (Choose all that apply): None applicable Inpatient E&M: 17149 Disch Hosp
== END 2020-01-18 14:10 | disposition home or self-care (01) | DRG 43 ==
LOC: ED 11:38 → MS3 12:11
PROVIDERS: Admitting Provider Family Medicine; Emergency Provider Emergency Medicine; PCP Nurse Practitioner Family; Visit Provider Family Medicine
DX: G35 Multiple sclerosis (principal); E55.9 Vitamin D deficiency, unspecified; R51.9 Headache, unspecified; Z82.0 Family history of epilepsy and other diseases of the nervous system; Z88.5 Allergy status to narcotic agent
CPT/HCPCS: 70553; 80048; 81001; 83735; 84703; 85025; 99284; A9575; J7030; A4216; J2405; J2930; J3030

== ENCOUNTER 2020-11-20 15:00 | Outpatient (RCR) | payer MEDICAID, SELFPAY ==
--- NOTE | 2020-10-07 16:52 | HP.PTEVAL_ITS ---
Patient's Visit Information JIMMY SANDERS is a 24 year old F referred to Physical Therapy by ELIZABETH WYATT with a diagnosis of Left Knee Pain. Date of Evaluation: 10/07/20 Physical Therapist: Palmira Alvarez DPT - Visit Plan Frequency: 2x /Week Duration: 4 Weeks Plan: Focus on LE and core strength/stabilization- ultrasound as needed modality of choice. HEP Given IE: bridge, quad set, SLR, clams, hamstring stretch, SLS - Subjective Has had pain for left knee pain for 10 years- had PT a long time ago but can't remember exactly what is going on. Was diagnosed with MS in 2018 but thinks its unrelated. Insidious onset- very active when she was younger but now she can't run due to the pain- gave out on her when she was going up stairs. Fell up the stairs about 8 weeks ago due to the knee buckling. Pain is located along the whole knee cap- no radiating pain. Describes the pain as sharp in the knee cap. Worst: 11/27. Agg: anything she does, going upstairs (as to sleep on the couch sometimes because she can't do the stairs) Eases: sitting down or laying down Best: 03/29. Has N/T in both hands and feet from MS. MS flare up was January 17- bilateral LE numbness and left eye issues-follows with MD for MS. Had an x-ray- MRI was refused due to needing to have therapy first. Not active due to the knee pain. 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 Wears tennis shoes to work. Has a son who is almost 7- going into first grade. Sleep is not disturbed PMHx: MS Meds: ocrevis. - Objective Posture: FH, RS can correct but does not maintain. Gait: angatlgic- stance on the left LE with poor heel/toe pattern. Stairs: asc/desc 8 recip- asc uses single hand rail and pulls for propulsion- descent not controlled- reports pain with both. HR/TR: able but reports pain. SLS: weight shift but unable to SLS without UE A and pain. Flex:HS: severe, Gastroc: severe. Sensation: WFL. ROM: WFl with pain at end range flexion. Strength: Core: fair minus, Hip: 4-/5 throughout, knee: 4/5, ankle: 4-/5. Palpation: tender along medial and lateral joint line. Special Test: Arnulfo: positive, Bekah: positive, FELY: negative, LLD: negative - Goals Goal 1:: Patient will be I with HEP and progression Goal Time Frame: 4-6 Weeks Goal 2:: Patient will ambulate >300 feet with a normalized gait pattern Goal Time Frame: 4-6 Weeks Goal 3:: Patient will asc/desc 8 stairs recip with no HR and good control Goal Time Frame: 4-6 Weeks Goal 4:: Patient will report no buckling of the left LE for 1 week Goal Time Frame: 4-6 Weeks - Rehabilitation Potential Physical Therapy Diagnosis: Patient presents with hypomobility- she has decreased pain free ROM, LE and core strength/stabilization, proprioception, f caleb and muscular endurance leading to abnormal gait pattern and decreased ability to perform ADL's without pain. Rehabilitation Potential: Good - Anticipated Interventions Patient/Client Instruction: Educate patient on: Benefits of Fitness Program Therapeutic Exercise to Include: Strength training, Endurance training, Balance training, Coordination, Agility training, Body mechanics, Postural training, Flexibilty training, Gait and locomotor training, Neuromotor development, Passive ROM, Active ROM, Dynamic Lumbar Stabilization, Scapular Strength/Stabilization For the Purpose of:: To improve muscle performance and motor function TENS: Yes Cryotherapy (ice pack, ice massage): Yes Thermo therapy (hot pack): Yes Ultrasound (thermal/non thermal): Yes For the Purpose of:: To increase oxygenation perfusion Thank you for the opportunity to evaluate your patient. For Medicare and Medicare HMO plans, please review the plan of care and approve it. It will need to be FAXED BACK to us at [phone] for Medicare purposes. For Medicare only, by signing this I certify the plan of care. Please let me know if there are questions or concerns regarding this plan of care. Physician Signature: Date:
--- NOTE | 2020-11-24 10:02 | HP.PTDCSUM ---
It has been my pleasure to treat JIMMY SANDERS referred by ELIZABETH WYATT, with the diagnosis of Left Knee Pain for a total of 8 visit(s). Discharge Date: 11/20/20 Please see the following information for a summary of their discharge status. Subjective: Pt. reports being overall 80% better. She reports increased strength, but is still having some symptoms with jumping and running with her kids. Pt. has not had a situation where her leg has given out on her recently. Left Knee Pain Intensity (Out of 10): 2 % Improvement: 80 Objective/Function: ROM: Pt. has good ROM of her L knee without issues. MMT: ankle 5/5 throughout; knee ext 5-/5 mild increase NW, flexion 5-/5; hip- flexion 5-/5, adb 4+/5, ext 4+/5. IR 4+/5, ER 4+/5. SQUAT: increased L knee valgus positoning, decreased depth secondary to pain. GAIT: normal no issues, normal mechanics. Stairs; Pt. has increased L knee valgus with descending, mild increase NW. Goal 1:: Patient will be I with HEP and progression Goal Progress: Goal Met Goal 2:: Patient will ambulate >300 feet with a normalized gait pattern Goal Progress: Goal Met Goal 3:: Patient will asc/desc 8 stairs recip with no HR and good control Goal Progress: Progressing Goal 4:: Patient will report no buckling of the left LE for 1 week Goal Progress: Goal Met Plan: DC to HEP at this point in time. Discharge Comments: Pt. was treated with BLE strengthening and core stability exercises. She is improving, but still needs to work on hip ER/IR strength quad strength, and hip abd strengthening. She has a good program and plans to do this I at home with HEP. Pt. will be DC from PT at this point in time. If there are questions or concerns regarding this patient's physical therapy, please feel free to call me at [phone]. Thank you for the referral of this patient. Sincerely, Jaylen Lombardi Sipos, DPT Balance/Gait/Functional tests - Balance/Special Test Scores Lower Extremity Functional Score: 40
== END 2020-11-20 19:00 | disposition home or self-care (01) ==
LOC: PT 15:00
PROVIDERS: PCP Nurse Practitioner Family
DX: M25.562 Pain in left knee (principal)
CPT/HCPCS: 97110; 97164

== ENCOUNTER → 2021-01-21 16:01 | Outpatient (CLI) | payer MEDICAID, SELFPAY | PROVIDERS: PCP Nurse Practitioner Family; Referring Provider Otolaryngology; Visit Provider Otolaryngology | DX: Z11.59 Encounter for screening for other viral diseases (principal); Z03.818 Encounter for observation for suspected exposure to other biological agents ruled out | CPT/HCPCS: 87635; U0005; U0003 ==

== ENCOUNTER 2023-01-20 11:32 | Day surgery (SDC) | payer MEDICAID, SELFPAY ==
[2023-01-20] VITALS (7 sets, daily range): BP systolic 104–125; BP diastolic 61–86; PULSE 79–113; RESP 16–18; TEMP 36.2–37.2; O2SAT 98–100; BMI 26.9
[2023-01-20] MEDS: Lactated Ringers 1,000 ML 15 ML IV (12:20)
[2023-01-20 12:51] LABS: Internal QC Validated? YES +Cl - CLEAR BKGD
[2023-01-20 12:52] LABS: Pregnancy, Urine Negative Negative; Record Kit Lot#,Urine Preg HCG0000667200
--- NOTE | 2023-01-20 13:00 | FALS_PTH ---
PATIENT: JIMMY SANDERS [place] [facility] [place][id number] AGE/SX: 27/F ROOM: RE01/20/[address]: Dr. Velma Tovar DO : 1995 BED: DIS: 01/20/2023 SPEC #: [id number] RECD: 01/20/23 18:20 STATUS: JOHN JENELLE #: [id number] ARUN: 01/20/23 13:[address]: Velma Tovar DEPT: SURGICAL PATHOLOGY RECD BY: Taylor Felder ENTERED: 01/23/23 08:35 SP TYPE: FALL TUBES OTHR DR: Jolanta Primary Care Phys Tissues: Fallopian tube Procedures: Surgery Specimen Level II HEADER OPERATION: Laparoscopic, salpingectomy, IUD removal PRE-OP DIAGNOSIS: Request for sterilization TISSUE SUBMITTED: Right fallopian tube MICROSCOPIC DIAGNOSIS Right fallopian tube, salpingectomy: Fallopian tube with focal chronic inflammation. SJ: 01/24/2023 MICROSCOPIC DESCRIPTION Slides are reviewed. GROSS DESCRIPTION Received in fixative is one container labeled with the patient's name and designated right fallopian tube. The specimen consists of one fallopian tube with fimbrial end measuring 6 cm in length and 0.5 cm in diameter. Sections reveal unremarkable cut surfaces. [employer] sections are submitted in one cassette. / SJ:cc 01/23/23 TC:3 CPT: 77853
[2023-01-20 13:14] LABS: Hematocrit 39.2 % (37-47); Hemoglobin 12.7 g/dL (12.0-15.0); Mean Corp Hgb Conc 32.4 g/dL (32-36); Mean Corpuscular Hgb 29.5 pg (27.0-32.0); Mean Corpuscular Volume 91.2 fL (81-99); Platelet Count 218 K/mm3 (150-450); RBC Distribution Width CV 12.2 % (11.6-14.6); RBC Distribution Width SD 40.9 fl (35.1-43.9); White Blood Count 5.5 K/mm3 (4.4-11.0)
[2023-01-20 13:21] LABS: International Normalized Ratio 1.1; Prothrombin Time (Protime)PT. 13.9 SECONDS (11.7-14.9)
[2023-01-20 13:22] LABS: Partial Thromboplast Time 28.6 Seconds (24.1-36.2)
[2023-01-20 13:30] LABS: AST(SGOT) 8 U/L (15-37); Alanine Aminotransfer ALT/SGPT 13 U/L (13-56); Albumin, Serum 3.6 g/dL (3.2-5.0); Alkaline Phosphatase 42 U/L (45-117); Bilirubin, Direct 0.14 mg/dL (0.00-0.30); Globulin 2.8 g/dL (2.2-4.2); Protein, Total 6.4 g/dL (6.4-8.2)
[2023-01-20] MEDS: Bupivacaine 0.25% 30 ML Vial (14:05)
--- NOTE | 2023-01-20 15:32 | PCM.DC ---
Discharge Instructions Diet Discharge Diet: No restrictions Activity Discharge Activity: May Drive (Once you are more than 24 hours after surgery) and May Shower (Once you are more than 24 hours after surgery) May resume sexual activity in: 1 week (Nothing in vagina and no soaking in water for 1 week) Ice area for (Minutes): 15 Weight Bearing Status: Weight bearing as tolerated Lifting Restrictions: Nothing greater than 10-15 pounds for 1 week Dressing / Incision Call your doctor if your incision/area has: Continuous Slow Oozing, Sudden Increased Bleeding, Increased Pain/ Swelling, Increased Redness, Foul Smelling Discharge and Swelling at the incision site Call your doctor if you observe: Fever of 101 or Higher, Coldness, Increased Pain, Numbness or Tingling, Change in Color, Inability to urinate, Inability to have a bowel movement, Using more than 1 pad per hour, Shortness of breath, Dizziness, Fainting spells, Swelling in the ankles, Chest pain, Increased palpitations (irregular heartbeat), Calf discomfort and Uncontrolled pain Suture Line Care: Avoid Pulling/Pushing and Avoid Pinching/Bending Remove Dressing in: leave until fall off (There are sutures under your skin that will dissolve. There is glue over top that will start to peel up and you can cut the edges if you want) Cleanse incision/area with: Soap & Water Follow Up Care Please Follow Up With: Velma Tovar DO When: 1-2 weeks Test Results: Test results from this visit will be discussed in further detail at your follow-up appointment, if applicable. Discharge Plan Admission Primary Reason for Your Visit: surgery Attending Provider: Velma Tovar Primary Care Provider: Care Physician,Jolanta Primary Discharge Orders/Prescriptions Prescriptions: New oxycodone 5 mg tablet 5 mg PO Q6H PRN (Reason: pain) 7 Days Qty: 10 0RF Continued coenzyme Q10 [Co Q-10] 100 mg capsule 100 mg PO DAILY ascorbic acid (vitamin C) [C Complex] 500 mg tablet extended release 500 mg PO DAILY Ocrevus 30 mg/mL solution 300 mg IV .Q6MO cholecalciferol (vitamin D3) [Vitamin D3] 25 mcg (1,000 unit) tablet 25 mcg PO DAILY Referrals / Follow Up: Yolette Beckman SWEATBAND SHAPER, SWEATBAND SHAPER-C [Non-Staff] - Disposition Disposition (needs filled in before D/C Order can be placed): Home, Self Care
--- NOTE | 2023-01-20 15:34 | PCM.OPRPT ---
Problems Associated Problem List Diagnoses (1) Request for sterilization: Report of Operation Date of Procedure: 01/20/23 Pre-Operative Diagnosis: Request for sterilization Post-Operative Diagnosis: As above Surgery/Procedure Performed:: Laparoscopic right salpingectomy, IUD removal Description of Surgical Findings:: Normal-appearing uterus. Left fallopian tube and left ovary were surgically absent. Thin filmy adhesions of colon to left pelvic sidewall. Normal-appearing right fallopian tube. Normal-appearing right ovary. Surgeon: Velma Tovar freight rate analyst: Fahad PRUETT freight rate analyst: Fahad Juarez MS3 Type of Anesthesia: General Special Medications: None Specimen's removed: Right fallopian tube Drains: None Estimated Blood Loss (mL): < 50 Fluids Replaced: See anesthesia record Description of Procedure: Patient was taken to the operating room where general anesthesia was induced. The patient was prepped and draped in the dorsal lithotomy position using yellowfin stirrups. A weighted speculum was placed in the vagina and using a right angle retractor the cervix was visualized. The IUD strings were grasped with a ring forcep and with gentle traction the IUD was easily removed without force. The IUD was noted to be intact. The anterior lip of the cervix was grasped with a single-tooth tenaculum. The ZUMI uterine manipulator was placed. The retractors and single-tooth tenaculum were removed from the vagina. Gloves were changed and attention was turned to the abdominal portion of the procedure. Local was infiltrated at all port sites. An infraumbilical incision was made to accommodate a 5 mm port. The 5 mm port was placed under direct visualization using the laparoscope. Once confirmed intraperitoneal, CO2 insufflation was initiated to a maximum pressure of 20 mmHg. No injury was noted upon entry. The patient was placed in Trendelenburg position. A left lateral 5 mm port was placed. A right lateral 5 mm port was placed. The uterus was upheld from below. The pelvis was normal appearing. The uterus was normal-appearing. The right fallopian tube and right ovary were normal-appearing. There were thin filmy adhesions of the colon to the left pelvic sidewall. The left fallopian tube was surgically absent. The left ovary was surgically absent. The right fallopian tube was followed out to the fimbriated end and elevated out of the pelvis. The LigaSure device was used to serially clamp, cauterize, and transect along the mesosalpinx hugging adjacent to the fallopian tube until reaching level of the cornua. Once at the level of the cornua the fallopian tube was transected. The fallopian tube was then removed and sent to pathology for review. Hemostasis was noted. All ports were removed and hemostatic. The abdomen was exsufflated. The ports were closed with 4-0 Monocryl and glue. From below the uterine manipulator was removed. A vaginal sweep was performed. Instrument, sponge, sharp counts were correct. The patient was taken to the recovery room in stable condition. Fahad PRUETT assisted with performing the salpingectomy. Fahad Juarez MS3 assisted with closure of port sites. Grafts/Implants Used: None Procedure Start Time: 14:28 Procedure Stop Time: 15:09 Complications None Admit VTE Documentation VTE Present on Admission: No VTE Mechan Device Prophylaxis: SCD's
[2023-01-20] MEDS: oxyCODONE 5 MG Tablet PO (17:10)
== END 2023-01-20 17:44 | disposition home or self-care (01) ==
LOC: SDC 11:35 → AC 11:37
PROVIDERS: Anesthesiology; Referring Provider Obstetrics & Gynecology; Visit Provider Obstetrics & Gynecology
PROC: (CPT 58661; principal; 2023-01-20 12:45)
DX: Z30.2 Encounter for sterilization (principal); G35 Multiple sclerosis; Z90.721 Acquired absence of ovaries, unilateral; N70.13 Chronic salpingitis and oophoritis; N93.8 Other specified abnormal uterine and vaginal bleeding
CPT/HCPCS: 58661; 58301; 80076; 81025; 85027; 85610; 85730; 86850; 86900; 86901; 88302; J7120; J2405

== ENCOUNTER → 2023-10-12 | Outpatient (CLI) | payer MEDICAID, SELFPAY ==
--- NOTE | 2023-10-12 15:56 | CT_ITS ---
EXAM: CT MAXILLOFACIAL WITHOUT INTRAVENOUS CONTRAST CLINICAL INDICATION: CHRONIC SINUSITIS TECHNIQUE: Helically acquired images were obtained of the face without intravenous contrast. This CT exam was performed using one or more of the following dose reduction techniques: automated exposure control, adjustment of the mA and/or kV according to patient size, and/or use of iterative reconstruction technique. COMPARISON: MRI brain, 04/18/2023 FINDINGS: BONES/JOINTS: No acute maxillofacial fracture. No lytic or blastic osseous lesions. No TMJ arthrosis. Skull base foramina are normal. SOFT TISSUES: No significant abnormality. No focal subcutaneous swelling. No discrete fluid collections. ORBITS: No acute findings. No orbital mass. No inflammatory changes. SINUSES: Mild mucosal thickening in the alveolar recesses of the bilateral maxillary sinuses. Narrow left ethmoidal infundibulum although no evidence of ostiomeatal unit obstruction. The remainder the paranasal sinuses are clear and there is no sinus outflow obstruction was identified. MASTOID AIR CELLS: Normal as visualized. Clear. DENTAL: No significant findings. No periodontal osseous erosion. CT/Sinus/Facial Bone IMPRESSION: 1. Mild mucosal thickening in the alveolar recesses of the bilateral maxillary sinuses. Narrow left ethmoidal infundibulum although no evidence of ostiomeatal unit obstruction. Overall, maxillary sinus disease is markedly improved. No additional significant sinonasal opacity or sinus several pathway obstruction. 2. No additional significant abnormality. Electronically Signed: Adonay Rios DO at 0:01 EDT ,
== END | disposition home or self-care (01) ==
LOC: CT 15:52
PROVIDERS: Referring Provider Otolaryngology; Visit Provider Otolaryngology
DX: J32.8 Other chronic sinusitis (principal)
CPT/HCPCS: 70486

== ENCOUNTER 2024-09-26 11:32 | Emergency (ER) | payer MEDICAID, SELFPAY ==
[2024-09-26 11:33] VITALS: BP 137/96; PULSE 106; RESP 18; TEMP 36.4; O2SAT 100; BMI 25.0
--- NOTE | 2024-09-26 13:18 | EX.ED.DYSGE1 ---
HPI History of Present Illness Chief Complaint: Rash Narrative Narrative: Patient is a 28-year-old female with past medical history of MS, anxiety, alcohol use, easy bruising who presented to the emergency department with concern for rash. Patient states that she was working in the garden the other day and noted that she developed a rash to her left bicep region. Patient also notes now she has a rash spreading on her upper arms and towards her right shoulder and upper back. Patient states that this was itchy but she states that she was not trying to itch this. States that there is a possibility that she was exposed to poison jarocho. Patient notes that her arm she felt like she may have been bit by a spider she is not sure. States that she went to urgent care and they state that since she has an MS they advised her to go to the emergency department to be further evaluated. Patient states that she has not been on any medications for this. [facility] Medical History Wears contact lenses Anxiety Alcohol use Thyroid disease Low iron Easy bruising Syncope Non-smoker Multiple sclerosis c section Home Medications ?Medication ?Instructions ?Recorded ?Last Taken ?Type ascorbic acid (vitamin C) 500 mg 500 mg PO DAILY 01/12/23 Unknown History tablet,extended release (C Complex) cholecalciferol (vitamin D3) 25 25 mcg PO DAILY 01/12/23 Unknown History mcg (1,000 unit) tablet (Vitamin D3) coenzyme Q10 100 mg capsule (Co 100 mg PO DAILY 01/12/23 Unknown History Q-10) ocrelizumab 30 mg/mL intravenous 300 mg IV .Q6MO 01/12/23 Unknown History solution (Ocrevus) cephalexin 500 mg capsule 500 mg PO Q12H 7 days #14 caps 09/26/24 Unknown Rx sulfamethoxazole 800 1 tab PO BID 7 days #14 tabs 09/26/24 Unknown Rx mg-trimethoprim 160 mg tablet (Bactrim DS) Allergy/AdvReac Type Severity Reaction Status Date / Time codeine Allergy Rash/vomiti Verified 09/26/24 11:34 ng Surgical History History of myringotomy S/P removal of left ovary Social History Smoking Status: Never smoker alcohol intake: never substance use type: does not use what type of physical activity do you participate in: none seatbelt use: always do you feel safe at home: Yes ROS ROS ED ROS Narrative Constitutional: Denies any fevers, chills, headaches Cardiovascular: Denies chest pain Respiratory: Denies shortness of breath Abdomen: Denies nausea vomit diarrhea Neurological: Denies numbness, wheeze, tingling Musculoskeletal: Denies back pain Skin: Complains of rash as noted above and states that she has chronic bruising as she bruises easily EXAM Physical Exam Narrative Exam Narrative: General: Patient lying in bed rest comfortably did not appear to be in acute distress Head: Atraumatic, normocephalic Eyes: PERRL bilaterally, EOMI black no conjunctival injection noted Neck: Soft, supple, trachea midline Cardiovascular: Patient tachycardic with regular rhythm Extremities: +5/5 strength noted in the bilateral upper and lower extremities Neurological: Patient following commands and that she was at [facility] year is 2024 Skin: Patient has what appears to be cellulitis to the left biceps region, no evidence of abscess, the other portion of the rash noted on her body is blanching in nature is slightly raised and states that this is itchy if she touches this no petechia no purpura no intraoral lesions noted Const Vital Signs: 09/26/24 11:33 Temperature 97.6 F L Temperature Source Oral Pulse Rate 106 H Respiratory Rate 18 Blood Pressure 137/96 H Blood Pressure Mean 109 Pulse Ox 100 Oxygen Delivery Method Room Air MDM MDM MDM Narrative Medical decision making narrative: Patient is a 28-year-old female who presented to the emergency department chief complaint of concern for bug bite and rash on her arm on the left side as well as on her upper extremities. On the differential diagnose includes but not limited to left bicep cellulitis, contact dermatitis from poison jarocho, poison oak exposure. At this point in time given the patient has not been on antibiotics yet we will place her on Keflex and Bactrim. She also be placed on a course of steroids for the poison jarocho. She was advised to keep a close eye on this if the area that is outlined here in the emergency department is spreading while on antibiotic she should return immediately. She is advised otherwise follow-up with her doctor in outpatient setting. She is agreeable this plan all question concerns answered she is discharged home in stable condition. Discharge Plan Triage Chief Complaint: Rash ED Provider: Emmanuel Ochoa Dx/Rx/DC Orders Clinical Impression: Cellulitis of arm, left, Contact dermatitis, Poison jarocho Prescriptions: New cephalexin 500 mg capsule 500 mg PO Q12H 7 Days Qty: 14 0RF sulfamethoxazole-trimethoprim [Bactrim DS] 800-160 mg tablet 1 tab PO BID 7 Days Qty: 14 0RF No Action coenzyme Q10 [Co Q-10] 100 mg capsule 100 mg PO DAILY ascorbic acid (vitamin C) [C Complex] 500 mg tablet extended release 500 mg PO DAILY Ocrevus 30 mg/mL solution 300 mg IV .Q6MO cholecalciferol (vitamin D3) [Vitamin D3] 25 mcg (1,000 unit) tablet 25 mcg PO DAILY Primary Care Provider: González Guerrero Referrals: González Guerrero PA [Primary Care Provider] - Activity Restrictions/Additional Instructions: Take antibiotics as prescribed after 24 to 48 hours after oral antibiotics if the site on your arm is worsening outside of the area that was outlined you need to return to the emergency department. Call your neurologist in regards to taking steroids with your MS medication. If they feel that this is safe then asked them to prescribe you steroid taper pack for concern of poison jarocho. Return with any other concerns. Print Language: Mohawk Disposition Disposition: Home, Self Care
[2024-09-26 13:32] VITALS: BP 128/97; PULSE 99; RESP 18; O2SAT 99
[2024-09-26 13:35] VITALS: BP 128/97; PULSE 99; RESP 18; TEMP 36.6; O2SAT 99
== END 2024-09-26 13:41 | disposition home or self-care (01) ==
PROVIDERS: Emergency Provider Emergency Medicine; PCP Physician Assistant; Visit Provider Emergency Medicine
DX: L03.114 Cellulitis of left upper limb (principal); G35 Multiple sclerosis; F41.9 Anxiety disorder, unspecified; L25.5 Unspecified contact dermatitis due to plants, except food
CPT/HCPCS: 99282